=== PATIENT | female | born 1945 | race Caucasian/White ===

== ENCOUNTER 2022-01-23 17:45 | Observation (INO) | payer MEDICARE, OTHER, SELFPAY ==
[2022-01-23 17:55] VITALS: BP 169/108; PULSE 97; RESP 18; TEMP 36.6; O2SAT 96; BMI 23.0
--- NOTE | 2022-01-23 18:00 | CRLHL7_ITS ---
For Patients: As a result of the Century Cures Act, medical imaging exams and procedure reports are released immediately into your electronic medical record. You may view this report before your referring provider. If you have questions, please contact your health care provider. INDICATION: Fall, neck injury TECHNIQUE: CT Head without i.v. contrast. Coronal and sagittal reformats were obtained. COMPARISON: None FINDINGS: CSF space: Unremarkable for age. Brain: No evidence of mass, acute infarction or hemorrhage is seen. No mass-effect or midline shift is seen. Mild diffuse cortical atrophy is noted. The brain parenchyma is otherwise normal in appearance with preservation of the robbins-white matter junction. Calvarium: The visualized paranasal sinuses are well aerated. The mastoid air cells are clear. The visualized orbits are grossly unremarkable. Bone; Spina bifida occulta is noted in the posterior arch of C1. Miscellaneous: There is a nodule partially visualized in the right apex measuring 7 x 4 mm. A round nodules present in the left apex measuring 4 mm. Both thyroid lobes are heterogeneous in appearance. IMPRESSIONS: 1. No evidence of acute infarction, intracranial hemorrhage, or mass-effect seen. 2. There is a nodule partially visualized in the right apex measuring 7 x 4 mm. A round nodules present in the left apex measuring 4 mm. Further characterization with outpatient chest CT is recommended. 3. Both thyroid lobes are heterogeneous in appearance. Further assessment with outpatient thyroid ultrasound is recommended. Dictated by Carlo Borges MD @ 01/23/2022 6:54:06 PM Please note that all CT scans at this facility use dose modulation, iterative reconstruction, and/or weight-based dosing when appropriate to reduce radiation dose to as low as reasonably achievable. Dictated by: Carlo Borges MD @ 01/23/2022 18:54:13 (Electronically Signed)
--- NOTE | 2022-01-23 18:00 | CRLHL7_ITS ---
For Patients: As a result of the Century Cures Act, medical imaging exams and procedure reports are released immediately into your electronic medical record. You may view this report before your referring provider. If you have questions, please contact your health care provider. INDICATION: Fall. Laceration to back of head, Fall, head injury, loss of consciousness TECHNIQUE: CT Head without i.v. contrast. Coronal and sagittal reformats were obtained. COMPARISON: 03/26/2020 FINDINGS: CSF space: Unremarkable for age. Brain: No evidence of mass, acute infarction or hemorrhage is seen. No mass-effect or midline shift is seen. Mild diffuse cortical atrophy is noted. The brain parenchyma is otherwise normal in appearance with preservation of the robbins-white matter junction. Calvarium: The visualized paranasal sinuses are well aerated. The mastoid air cells are clear. The visualized orbits are grossly unremarkable. The calvarium is unremarkable in appearance with no fractures identified. Soft tissue hematoma is noted over the posterior vertex. IMPRESSION: 1. No evidence of acute infarction, intracranial hemorrhage, or mass-effect seen. Please note that all CT scans at this facility use dose modulation, iterative reconstruction, and/or weight-based dosing when appropriate to reduce radiation dose to as low as reasonably achievable. Dictated by: Carlo Borges MD @ 01/23/2022 18:55:30 (Electronically Signed)
--- NOTE | 2022-01-23 18:01 | ED.GENADULT ---
HPI - General Adult General Time Seen by Provider: 17:55 Date Seen: 01/23/22 Chief complaint: Head Injury/Pain Stated complaint: head injury, bleeding Time Seen by Provider: 01/23/22 17:47 Source: patient Mode of arrival: wheelchair Limitations: no limitations History of Present Illness HPI narrative: 76-year-old female who comes in today with a head injury. Apparently she fell and hit her head. Per report, loss of conscious for couple of minutes. Patient herself complains of some tailbone pain now as well as head pain. No other complaints. She does take Plavix. Related Data Home Medications Medication Instructions Recorded Confirmed atorvastatin 40 mg tablet mg 01/23/22 bupropion HCl 150 mg 24 hr tablet, mg PO 01/23/22 extended release carvedilol 3.125 mg tablet mg 01/23/22 clopidogrel 75 mg tablet mg 01/23/22 fluoxetine 10 mg capsule mg 01/23/22 nitroglycerin 0.4 mg sublingual mg 01/23/22 tablet trazodone 100 mg tablet mg 01/23/22 Review of Systems Status of ROS: Reports: 10 or more systems reviewed and unremarkable except as noted in History and below [facility] Social History Do you use any of these nicotine containing products: None Second hand tobacco smoke exposure: No How often do you have a drink containing alcohol: never How many standard drinks containing alcohol do you have on a typical day: 1 or 2 AUDIT-C Alcohol total score: 0 Non-prescribed substance use: denies use Exam Narrative: Exam Narrative: Airway- patent, no loose teeth, no blood in the oropharynx Breathing nonlabored, lungs clear bilaterally Circulation- bleeding from the scalp, no other active bleeding Neurologic- GCS 15 Const: Vital Signs, click to edit/add: Vital Signs - 24 hr 01/23/22 17:55 01/23/22 20:56 Temperature 97.8 F Pulse Rate [Left P ulse Oximeter] 97 97 Respiratory Rate 18 18 Blood Pressure [Ri ght Upper Arm] 169/108 H 121/88 Pulse Oximetry 96 Documenting provider has reviewed patient's vital signs: yes Common normals: no apparent distress, oriented x3, alert and well nourished HENMT: Common normals: normocephalic, external ears normal and external nose normal Head and scalp: normocephalic Nose: external nose normal External ear: external ears normal Other: Blood soaked towel wrapped around the head. When this was removed, the entire back of the head is matted with blood with no active bleeding noted. Eye: Common normals: PERRL and conjunctivae normal Conjunctiva: conjunctiva(e) normal Pupil: PERRL Neck & C-Spine: Common normals: full ROM, no lymphadenopathy and supple Chest: Common normals: palpation of chest normal Resp: Common normals: normal respiratory effort and clear to auscultation bilaterally Auscultation: clear to auscultation bilaterally Cardio: Common normals: regular rate, regular rhythm and no murmurs Rate: regular rate Rhythm: regular rhythm GI: Common normals: Normal to inspection, nondistended, normoactive bowel sounds present, soft to palpation and non-tender Palpation: soft : Common normals: no CVA tenderness Bladder/kidney exam: no CVA tenderness Back & Pelvis: Common normals: no CVA tenderness and thoracic and lumbar spine normal to inspection Extremity: Common normals: normal to inspection, full ROM and no pedal edema Neuro: Common normals: oriented x3, CN's II-XII intact bilaterally and no focal motor deficits Sensorium/orientation: alert Psych: Common normals: mental status grossly normal Skin: Common normals: no rashes or lesions noted General skin exam: no rashes or lesions noted Course Reevaluation(s) Reevaluation #1: Prolong care of the patient to obtain hemostasis of rapidly bleeding scalp laceration. Dr. Ambriz assisted with this. Hemoglobin 12.2 on initial check, will recheck due to large amount of bleeding, low threshold for transfusion. At this time, no active bleeding from the laceration site on the scalp. The remaining hair and scalp we cleaned to look for other lacerations. Patient will be sent for CT scan of the pelvis due to ongoing tailbone pain. Time: 19:25 Reevaluation #2: Repeat hemoglobin is 11.4 from 12.2, patient is hypertensive but otherwise remains stable. CT scan of the pelvis demonstrates fracture of the coccyx, new from November 23 and given patient's pain in this area likely acute. Time: 20:39 Reevaluation #3: Patient rechecked, she is feeling well other than her coccyx pain. She is requesting to be discharged. We discussed disposition and I recommend that she stay in the hospital due to concerns about ambulation with her coccyx fracture, pain control, and also to repeat hemoglobin given fairly significant blood last from her scalp laceration. After discussion, she is agreeable to this. Care discussed with Dr. Gutierrez, hospitalist for admission. Time: 21:50 Vital Signs Vital signs: Initial Vital Signs Temperature 97.8 F 01/23/22 17:55 Temperature Source Temporal Artery Scan 01/23/22 17:55 Pulse Rate 97 01/23/22 17:55 Pulse Rhythm 01/23/22 17:55 Respiratory Rate 18 01/23/22 17:55 Blood Pressure 169/108 H 01/23/22 17:55 Blood Pressure Mean 128 01/23/22 17:55 Blood Pressure Position Supine 01/23/22 17:55 Pulse Oximetry 96 01/23/22 17:55 Oxygen Delivery Method 01/23/22 17:55 Vital Signs Temperature 97.8 F 01/23/22 17:55 Pulse Rate 97 01/23/22 17:55 Respiratory Rate 18 01/23/22 17:55 Blood Pressure 169/108 H 01/23/22 17:55 Pulse Oximetry 96 01/23/22 17:55 Temperature 97.8 F 01/23/22 17:55 Pulse Rate 97 01/23/22 20:56 Respiratory Rate 18 01/23/22 20:56 Blood Pressure 121/88 01/23/22 20:56 Pulse Oximetry 96 01/23/22 17:55 Medical Decision Making MDM Narrative Medical decision making narrative: Patient seen and examined on arrival, trauma alert due to head injury loss of consciousness. Differential diagnosis includes but not limited to scalp laceration, skull fracture, intracranial hemorrhage, cervical fracture. Patient presents with a fall and head injury. Unable to see the source of bleeding due to large amount of matted clotted blood on the back of the head but no active bleeding noted initially. Patient sent for head CT and will complete exam on arrival back to the emergency department. Cervical spine imaging performed due to age and head injury. Medical Records Medical records reviewed: Yes I reviewed the patient's medical records Lab Data Lab results reviewed: Yes I reviewed the patient's lab results Labs: Lab Results 01/23/22 01/23/22 01/23/22 Range/Units 18:00 18:59 20:12 WBC 7.96 (4.50-11.00) K/uL RBC 4.22 (4.00-5.20) m/uL Hgb 12.2 11.4 L (12.0-16.0) gm/dL Hct 38.5 (33.0-51.0) % MCV 91 (80-100) fL MCH 29 (26-34) pg MCHC 32 (32-36) gm/dL RDW Coeff of Jeannine 12.1 (11.5-15.5) % Plt Count 485 H (140-440) K/uL Neut % (Auto) 54.7 (42.0-72.0) % Lymph % (Auto) 30.3 (20-44) % Bonner % (Auto) 9.3 (0.0-11.0) % Eos % (Auto) 5.3 (0.0-7.0) % Baso % (Auto) 0.3 (0.0-3.0) % Neut # (Auto) 4.36 (1.7-7.0) K/uL Lymph # (Auto) 2.41 (0.90-2.90) K/uL Bonner # (Auto) 0.70 (0.00-0.90) K/UL Eos # (Auto) 0.42 (0.00-0.50) K/uL Baso # (Auto) 0.02 (0.00-0.30) K/uL Abs Immat Gran (auto) 0.01 (0.00-0.30) K/uL Sodium (135-149) mmol/L Potassium (3.6-5.1) mmol/L Chloride (96-114) mmol/L Carbon Dioxide (20-32) mmol/L BUN (7-30) mg/dL Creatinine (0.5-1.5) mg/dL Estimated Creat Clear Glucose (60-115) mg/dL Calcium (8.4-10.6) mg/dL SARS-CoV-2 (PCR) (Negative) Blood Type O Positive Antibody Screen NEGATIVE 01/23/22 01/23/22 Range/Units 21:05 22:02 WBC (4.50-11.00) K/uL RBC (4.00-5.20) m/uL Hgb (12.0-16.0) gm/dL Hct (33.0-51.0) % MCV (80-100) fL MCH (26-34) pg MCHC (32-36) gm/dL RDW Coeff of Jeannine (11.5-15.5) % Plt Count (140-440) K/uL Neut % (Auto) (42.0-72.0) % Lymph % (Auto) (20-44) % Bonner % (Auto) (0.0-11.0) % Eos % (Auto) (0.0-7.0) % Baso % (Auto) (0.0-3.0) % Neut # (Auto) (1.7-7.0) K/uL Lymph # (Auto) (0.90-2.90) K/uL Bonner # (Auto) (0.00-0.90) K/UL Eos # (Auto) (0.00-0.50) K/uL Baso # (Auto) (0.00-0.30) K/uL Abs Immat Gran (auto) (0.00-0.30) K/uL Sodium 136 (135-149) mmol/L Potassium 4.9 (3.6-5.1) mmol/L Chloride 106 (96-114) mmol/L Carbon Dioxide 22 (20-32) mmol/L BUN 24 (7-30) mg/dL Creatinine 1.4 (0.5-1.5) mg/dL Estimated Creat Clear 30.76 Glucose 117 H (60-115) mg/dL Calcium 9.4 (8.4-10.6) mg/dL SARS-CoV-2 (PCR) Negative SARS-CoV-2 (Negative) Blood Type Antibody Screen Imaging Data CT scan - pelvis: Attestation: I have reviewed the pertinent imaging results. Radiologist's impression: Coccyx fracture with mild anterior displacement ECG Data Attestation: I personally reviewed and interpreted this ECG as follows: Prior ECG tracings: available for review Interpretation: Performed at 10:19 p.m. demonstrates sinus rhythm with left axis deviation, no acute ST elevations or depressions, normal intervals, QTC 454, PMR 138. No change from prior. Discharge Plan Discharge Clinical Impression: Closed fracture of coccyx, Complex laceration of scalp Procedures Additional Procedures Procedure name: Hemostasis and laceration repair Pre procedure diagnosis: Scalp laceration with active bleeding Post procedure diagnosis: Same Additional comments: Patient with aggressive arterial bleeding from the scalp. Large amount amount of blood in the hair. This was cleaned with hydrogen peroxide. Laceration was visualized with active arterial bleeding, 12 mm full-thickness laceration with brisk arterial bleeding. Lidocaine 1% with epinephrine was injected around the laceration. Two 4-0 Vicryl simple interrupted sutures were placed, along with a figure of 8 with minimal improvement of bleeding. Subsequently a 3-0 Vicryl horizontal mattress was placed with slight improvement but still active bleeding. The skin was closed with 3 4-0 Ethilon simple interrupted sutures with no further bleeding and no rapidly expanding hematoma.
[2022-01-23 18:43] LABS: Basophils Absolute Auto 0.02 K/uL (0.00-0.30); Basophils Percent Auto 0.3 % (0.0-3.0); Eosinophils Absolute Auto 0.42 K/uL (0.00-0.50); Eosinophils Percent Auto 5.3 % (0.0-7.0); Hematocrit 38.5 % (33.0-51.0); Hemoglobin* 12.2 gm/dL (12.0-16.0); Immature Granulocytes Abs Auto 0.01 K/uL (0.00-0.30); Lymphocytes Absolute Auto 2.41 K/uL (0.90-2.90); Lymphocytes Percent Auto 30.3 % (20-44); Mean Corpuscular HGB Conc 32 gm/dL (32-36); Mean Corpuscular Hemoglobin 29 pg (26-34); Mean Corpuscular Volume 91 fL (80-100); Monocytes Percent Auto 9.3 % (0.0-11.0); Neutrophils Absolute Auto 4.36 K/uL (1.7-7.0); Neutrophils Percent Auto 54.7 % (42.0-72.0); Platelet Count* 485 K/uL (140-440); RDW Coefficient of Variation % 12.1 % (11.5-15.5); Red Blood Count 4.22 m/uL (4.00-5.20); White Blood Count* 7.96 K/uL (4.50-11.00)
[2022-01-23 18:44] LABS: Slide Review Reflex No
--- NOTE | 2022-01-23 19:24 | CRLHL7_ITS ---
For Patients: As a result of the Century Cures Act, medical imaging exams and procedure reports are released immediately into your electronic medical record. You may view this report before your referring provider. If you have questions, please contact your health care provider. INDICATION: Fell ; Tailbone pain. COMPARISON: CT chest, abdomen and pelvis November 23, 2021. TECHNIQUE: CT pelvis without intravenous contrast; coronal and sagittal reformats. FINDINGS: Fracture involving the first segment of the coccyx with mild anterior displacement relatively new when compared to November 23, 2021. No pathology involving the sacrum. Disc space narrowing and disc degeneration at L5-S1. No evidence of fracture involving the hips on either side. Impression: Fracture coccyx with mild anterior displacement relatively new 0. Please note that all CT scans at this facility use dose modulation, iterative reconstruction, and/or weight-based dosing when appropriate to reduce radiation dose to as low as reasonably achievable. Dictated by Paolo Lane MD @ 01/23/2022 8:35:54 PM (Electronically Signed)
[2022-01-23 20:25] LABS: Hemoglobin* 11.4 gm/dL (12.0-16.0)
[2022-01-23 20:56] VITALS: BP 121/88; PULSE 97; RESP 18
[2022-01-23 22:21] LABS: Chloride* 106 mmol/L (96-114); Sodium* 136 mmol/L (135-149)
[2022-01-23 22:22] LABS: Potassium* 4.9 mmol/L (3.6-5.1)
[2022-01-23 22:24] LABS: Blood Urea Nitrogen* 24 mg/dL (7-30); Carbon Dioxide* 22 mmol/L (20-32); Creatinine* 1.4 mg/dL (0.5-1.5); Est. Creatinine Clearance* 30.76; Estimated Glomerular Filt Rate 38.99
[2022-01-23 22:25] LABS: Calcium* 9.4 mg/dL (8.4-10.6); Glucose* 117 mg/dL (60-115)
[2022-01-23 22:42] LABS: SARS PCR* Negative SARS-CoV-2 (Negative)
--- NOTE | 2022-01-23 22:58 | P.IMHP_ITS ---
Hospitalist- H&P: HPI History of Present Illness Time Seen by Provider: 22:30 Date Seen: 01/23/22 Chief complaint: head injury, bleeding Narrative: Brinda Harris is a 76 year old female who is presenting for fall. The patient was going to meet friends at [facility]. When she got out of the car she tripped over her feet. She hit her head on the asphalt and started bleeding. She is on plavix. she also fell on her buttock. She presented to ED and underw ent laceration repair of scalp. She was found to have coccyx fracture. She denies chest pain, sob, palpitations, fever, abdominal pain. She endorses pain in her coccyx. CT head showed No evidence of acute infarction, intracranial hemorrhage, or mass-effect seen. PFSH PFSH Social History Do you use any of these nicotine containing products: None Second hand tobacco smoke exposure: No How often do you have a drink containing alcohol: never How many standard drinks containing alcohol do you have on a typical day: 1 or 2 AUDIT-C Alcohol total score: 0 Non-prescribed substance use: denies use Meds Home Medications and Allergies Home Medications Medication Instructions Recorded Confirmed Type atorvastatin 40 mg tablet mg 01/23/22 History bupropion HCl 150 mg 24 hr tablet, mg PO 01/23/22 History extended release carvedilol 3.125 mg tablet mg 01/23/22 History clopidogrel 75 mg tablet mg 01/23/22 History fluoxetine 10 mg capsule mg 01/23/22 History nitroglycerin 0.4 mg sublingual mg 01/23/22 History tablet trazodone 100 mg tablet mg 01/23/22 History Exam Narrative: Exam Narrative: Gen: no acute distress HEENT: Laceration to posterior scalp, EOMI, mmm Neck: Supple CV: RRR normal s1 s2 Lungs: CTAB Abd: Soft, nd, nt Neuro: AOX3, CN intact nonfocal screening exam MSK: age appropriate muscle mass Skin: warm, dry; bleeding noted on scalp Const: Vital Signs, click to edit/add: Vital Signs - 24 hr 01/23/22 17:55 01/23/22 20:56 Temperature 97.8 F Pulse Rate [Left P ulse Oximeter] 97 97 Respiratory Rate 18 18 Blood Pressure [Ri ght Upper Arm] 169/108 H 121/88 Pulse Oximetry 96 Hospitalist - H&P: Result Labs Labs: Short CBC 01/23/22 01/23/22 Range/Units 18:00 20:12 WBC 7.96 (4.50-11.00) K/uL Hgb 12.2 11.4 L (12.0-16.0) gm/dL Hct 38.5 (33.0-51.0) % Plt Count 485 H (140-440) K/uL BMP 01/23/22 22:02 Sodium 136 Potassium 4.9 Chloride 106 Carbon Dioxide 22 BUN 24 Creatinine 1.4 Glucose 117 H Calcium 9.4 Assessment and Plan Assessment and plan (1) Closed fracture of coccyx: Status: Acute (2) Complex laceration of scalp: Status: Acute Plan CT HEAD No evidence of acute infarction, intracranial hemorrhage, or mass-effect seen. ct cervical spine IMPRESSIONS: 1. No evidence of acute infarction, intracranial hemorrhage, or mass-effect seen. 2. There is a nodule partially visualized in the right apex measuring 7 x 4 mm. A round nodules present in the left apex measuring 4 mm. Further characterization with outpatient chest CT is recommended. 3. Both thyroid lobes are heterogeneous in appearance. Further assessment with outpatient thyroid ultrasound is recommended. CT Pelvis Fracture coccyx with mild anterior displacement relatively new 0. _ Assessment: Brinda Harris is a 76 year old female who is presenting for fall. The patient was going to meet friends at [facility]. When she got out of the car she tripped over her feet. She hit her head on the asphalt and started bleeding. She is on plavix. she also fell on her buttock. She presented to ED and underwent laceration repair of scalp. She was found to have coccyx fracture. She denies chest pain, sob, palpitations, fever, abdominal pain. She endorses pain in her coccyx. CT head showed No evidence of acute infarction, intracranial hemorrhage, or mass-effect seen. 1. Suspected mechanical fall 2. Laceration of scalp with acute blood loss anemia 3. coccyx fracture 4. Hx of HTN 5. Hx of CAD 6. Hx of Type II Dm 7. pulmonary nodule Plan -admit to obs -pain control -orthostatics -PT evaluation -check UA -repeat CBC in AM -outpatient thyroid US and outpatient CT chest for pulmonary nodule evaluation med rec pending
[2022-01-23 23:00] VITALS: PULSE 92; RESP 16
[2022-01-23 23:10] VITALS: BP 123/69; PULSE 92; RESP 16; TEMP 37.1; O2SAT 98
[2022-01-23] MEDS: OXYCODONE 5 MG TABLET PO (23:45)
[2022-01-24 00:33] VITALS: BP 123/69; PULSE 92; RESP 16; TEMP 37.1; O2SAT 98; BMI 23.0
[2022-01-24 06:15] VITALS: BP 115/65; BP 121/73; BP 126/67; PULSE 105; PULSE 82; PULSE 93
[2022-01-24 07:00] VITALS: PULSE 91; RESP 16
[2022-01-24 07:17] LABS: Basophils Absolute Auto 0.01 K/uL (0.00-0.30); Basophils Percent Auto 0.1 % (0.0-3.0); Eosinophils Absolute Auto 0.12 K/uL (0.00-0.50); Eosinophils Percent Auto 1.2 % (0.0-7.0); Hematocrit 32.1 % (33.0-51.0); Hemoglobin* 10.1 gm/dL (12.0-16.0); Immature Granulocytes Abs Auto 0.06 K/uL (0.00-0.30); Lymphocytes Percent Auto 19.4 % (20-44); Mean Corpuscular HGB Conc 32 gm/dL (32-36); Mean Corpuscular Hemoglobin 29 pg (26-34); Mean Corpuscular Volume 91 fL (80-100); Monocytes Percent Auto 7.4 % (0.0-11.0); Neutrophils Absolute Auto 7.26 K/uL (1.7-7.0); Neutrophils Percent Auto 71.3 % (42.0-72.0); Platelet Count* 393 K/uL (140-440); RDW Coefficient of Variation % 12.1 % (11.5-15.5); Red Blood Count 3.52 m/uL (4.00-5.20); White Blood Count* 10.17 K/uL (4.50-11.00)
--- NOTE | 2022-01-24 07:24 | PC.NURSE ---
SHIFT NOTE: PT PLEASANT AND COOPERATIVE. PT C/O HEAD(3) AND COCCYX(6-7) PAIN THAT IS SLIGHTLY RESOLVED WITH PRN OXYCODONE, REPOSITIONING AND OFFLOADING WITH PILLOW. PT BECAME NAUSEATED AFTER THE ADMINISTRATION OF OXYCODONE THAT RESOLVED AFTER PT ATE SOME CRACKERS. ORTHOSTATIC BP'S CHARTED ON. PT COLOR AND OVERALL STRENGTH HAS INCREASED THROUGHOUT THE NIGHT. PT HEAD LAC SUTURED IN ED AND IS NOT ACTIVELY BLEEDING. PT HAS ONLY AMBULATED TO BEDSIDE COMMODE WITH WALKER, MIROSLAVA, A1/A2. BRUISING TO INNER RIGHT THIGH FROM PREVIOUS PROCEDURE. ABRASION THAT IS OPEN TO AIR ON LEFT ELBOW FROM FALL. FX TO COCCYX; NO BRUISING NOTED.
[2022-01-24 07:27] LABS: Slide Review Reflex No
[2022-01-24] MEDS: ACETAMINOPHEN 325 MG TABLET 650 MG PO (08:40)
[2022-01-24 09:46] VITALS: BP 103/61; BP 96/51; BP 96/63; PULSE 102; PULSE 123; PULSE 93
[2022-01-24] MEDS: 0.9 % SODIUM CHLORIDE 1000 ml 1,000 ML IV (10:06)
[2022-01-24 12:00] VITALS: BP 103/62; BP 107/74; BP 112/66; PULSE 83; PULSE 91; PULSE 95; RESP 16; TEMP 36.9; O2SAT 98
--- NOTE | 2022-01-24 14:42 | PC.NURSE ---
shift 0700 to 1530 pt sitting up in chair with breakfast upon arrival. Alert and oriented to person, place, time, and situation. PERRLA and equal arm strength. Pt ambulating with stand by assist and walker use. IV right FA patent and asymptomatic. Orthostatics assessment performed this shift, PT cleared pt to go home, and discharge pending at this time. Acetaminophen 600mg PO given for pain of the coccyx, pain score 7/10 and 2/10 for head. Declined oxycodone due to nausea side effect. Eating and eliminating sufficiently. Hair matted with dry blood and sutures on scalp intact, no drainage, no increased swelling.
--- NOTE | 2022-01-27 12:42 | PM.DS1 ---
DS: Providers Provider Time Seen by Provider: 13:00 Date Seen: 01/24/22 Date of admission: 01/23/22 23:20 Primary care physician: Kristen Pittman MD Admitting Clinician: Mike Gutierrez MD Consults: 01/23/22 23:10 Consult to Physical Therapy [CONS] Routine Comment: Reason(s) for PT Consult:: Balance Assessment Any Restrictions?:: No Restrictions 01/24/22 00:54 Consult to Occupational Therapy [CONS] Routine Comment: Reason(s) for OT Consult:: ADLs Prior to Discharge Any Restrictions?:: Unknown Consult to Occupational Therapy [CONS] Stat Comment: Reason(s) for OT Consult:: ADLs Prior to Discharge Any Restrictions?:: Unknown Consult to Physical Therapy [CONS] Routine Comment: Reason(s) for PT Consult:: Balance Assessment Any Restrictions?:: Unknown Attending Physician on discharge: Isaias Smith MD Date of Discharge: 01/24/22 DS: Diagnosis Discharge Diagnosis (1) Fall: Status: Acute (2) Closed head injury with brief loss of consciousness: Status: Acute (3) 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 Found by her . Was confused when he found her. Had a scalp laceration. Called EMS. Continue to have confusion in the emergency department. Complained of headache and right wrist pain. CT scan of the head neck and pelvis were negative for acute findings. X-ray of the right wrist was negative for fractures as well. Scalp laceration was repaired. Admitted to the hospital for observation. In hospital her condition stabilized. It was apparent that she had amnesia of the event. Thought processes prior to the event and when she started to gain awareness here in the hospital have been totally on track. The reason for her fall in her home is not established. It is unclear if she had a fall due to having tripped or some other reasons such as a seizure. Presumably the amnesia that she has of the events is either related to a post concussion amnesia verses a postictal amnesia. May need additional assessment in regard to this in the outpatient setting. Right wrist pain was persistent despite putting it in a splint. Orthopedic surgery consulted and determined that she in fact has a distal radial fracture and thus put her on appropriate splint for the same. An appropriate splint was placed on the patient's wrist and her pain was much improved thereafter. They will have follow-up with her as specified. Time Spent with Patient Time attestation: Total time spent providing and/or coordinating discharge services: Exam Narrative: Exam Narrative: No focal motor neurologic deficits. Amnesia of events surrounding her fall. Lungs clear to auscultation. Heart tones with regular rhythm. Abdomen with active bowel sounds soft nontender. Extremities without edema. Side of scalp laceration is clean and dry. Able to transfer and ambulate with assistive device, gait belt, and standby assist. Const: Documenting provider has reviewed patient's vital signs: yes Discharge Plan Discharge Disposition: Home, Self-Care Date of Admission: 01/23/22 23:20 Attending Provider on Discharge: Isaias Smith Consulting Providers: Mike Gutierrez Primary Care Provider: Kristen Pittman Condition: Improved Anticipated Discharge Date/Time: 01/24/22 16:00 Discharge Medications: New acetaminophen 325 mg Tablet 650 mg PO Q6H PRNQty: 30 0RF Continued atorvastatin 40 mg tablet 40 mg PO HS 0RF clopidogrel 75 mg tablet 75 mg PO QAM 0RF Label Comments: TAKE 1 TABLET BY MOUTH IN THE MORNING carvedilol 3.125 mg tablet 3.125 mg PO BID 0RF trazodone 100 mg tablet 100 mg PO HS 0RF Label Comments: TAKE 1 TABLET BY MOUTH AT BEDTIME fluoxetine 10 mg capsule 10 mg PO QAM 0RF Label Comments: TAKE 1 CAPSULE BY MOUTH IN THE MORNING nitroglycerin 0.4 mg tablet, sublingual 0.4 mg sublingual Q5M 0RF bupropion HCl 150 mg tablet extended release 24 hr 150 mg PO DAILY 0RF Label Comments: TAKE 1 TABLET BY MOUTH IN THE MORNING Discharge Orders: Discharge Order (Routine); Ordered 01/24/22 Ordered By: Isaias Smith Patient Education: Acetaminophen (By mouth), Coccyx Injury (GEN), Laceration (GEN), Head Injury (GEN) Activity Restrictions/Additional Instructions: 1. Home safety plan, including possibility of a Med-Alert type of system; 2. Adequate hydration and solute and food intake. Activity Level: No Restrictions, Activity as Tolerated, Use Cane and Use Walker Discharge Diet: Regular Follow Up Appointments: Kristen Pittman MD [Primary Care Provider] - 02/03/22 1:00 pm (Laceration suture removal and post-fall assessment) Forms: [employer] Info Instructions
== END 2022-01-24 15:33 | disposition home or self-care (01) ==
LOC: ED 22:32 → MEDSURG 23:21
PROVIDERS: Admitting Provider Hospitalist; Emergency Provider Family Medicine; PCP Family Medicine; Visit Provider Hospitalist
DX: S52.531A Colles' fracture of right radius, initial encounter for closed fracture (principal); S32.2XXA Fracture of coccyx, initial encounter for closed fracture; S01.01XA Laceration without foreign body of scalp, initial encounter; S06.0X9A Concussion with loss of consciousness of unspecified duration, initial encounter; W19.XXXA Unspecified fall, initial encounter; I25.10 Atherosclerotic heart disease of native coronary artery without angina pectoris; I10 Essential (primary) hypertension; E11.9 Type 2 diabetes mellitus without complications; D62 Acute posthemorrhagic anemia; M25.531 Pain in right wrist; R51.9 Headache, unspecified; R91.1 Solitary pulmonary nodule
CPT/HCPCS: 12001; 12031; 36415; 70450; 72125; 72192; 80048; 81001; 84484; 85018; 85025; 86850; 86900; 86901; 87635; 93005; 96361; 96374; 96376; 97110; 97116; 97161; 97165; 99284; 99285; A9270; G0378; G0379; G0390; J7030

== ENCOUNTER 2022-09-30 21:36 | Emergency (ER) | payer MEDICARE, OTHER, SELFPAY ==
[2022-09-30] VITALS (13 sets, daily range): BP systolic 57–134; BP diastolic 44–82; PULSE 50–84; RESP 15–18; TEMP 37.1; O2SAT 95–99
--- NOTE | 2022-09-30 22:22 | ED_ITS ---
HPI - General Adult General Time Seen by Provider: 22:22 Date Seen: 09/30/22 Chief complaint: Fall/Minor Trauma Stated complaint: Left Hip and Rib Injury after Fall Time Seen by Provider: 09/30/22 21:47 Source: patient and family Mode of arrival: ambulatory Limitations: no limitations History of Present Illness HPI narrative: 77-year-old female who comes in today with left hip and left chest pain after a fall. Patient says she got dizzy and fell. She reports frequent dizzy spells with falling over the last several months. No preceding headache or aura with these. She says the dizziness is like lightheadedness. She denies any associated chest pain, palpitations with these episodes. She fell and hit her left chest on countertop. Takes Plavix, also history of 3 stents, hypertension, diabetes. Related Data Home Medications Medication Instructions Recorded Confirmed atorvastatin 40 mg tablet 40 mg PO HS 01/23/22 01/24/22 bupropion HCl 150 mg 24 hr tablet, 150 mg PO DAILY 01/23/22 01/24/22 extended release carvedilol 3.125 mg tablet 3.125 mg PO BID 01/23/22 01/24/22 clopidogrel 75 mg tablet 75 mg PO QAM 01/23/22 01/24/22 fluoxetine 10 mg capsule 10 mg PO QAM 01/23/22 01/24/22 nitroglycerin 0.4 mg sublingual 0.4 mg sublingual Q5M 01/23/22 01/24/22 tablet trazodone 100 mg tablet 100 mg PO HS 01/23/22 01/24/22 Previous Rx's Medication Instructions Recorded acetaminophen 325 mg tablet 650 mg PO Q6H PRN #30 tabs 01/24/22 Allergies Allergy/AdvReac Type Severity Reaction Status Date / Time bumetanide Allergy Mild Nausea Verified 01/23/22 23:33 codeine Allergy Mild Nausea Verified 01/23/22 23:33 dextromethorphan Allergy Mild Nausea Verified 01/23/22 23:33 lisinopril Allergy Mild Verified 01/23/22 23:33 NSAIDS (Non-Steroidal Allergy Mild unsure Verified 01/23/22 23:33 Anti-Inflamma pentazocine Allergy Mild Unsure Verified 01/23/22 23:33 Tussinex Allergy Mild Nausea Uncoded 01/23/22 23:33 Review of Systems Status of ROS: Reports: 10 or more systems reviewed and unremarkable except as noted in History and below [facility] Medical History (Updated 10/01/22 @ 00:36 by Johny Johnson MD) CAD (coronary artery disease) DM (diabetes mellitus), type 2 Hypertension Social History Smoking Status: Never smoker Do you use any of these nicotine containing products: None Second hand tobacco smoke exposure: No How often do you have a drink containing alcohol: never How many standard drinks containing alcohol do you have on a typical day: 1 or 2 How often do you have six or more drinks on one occasion: Never AUDIT-C Alcohol total score: 0 Non-prescribed substance use: denies use Caffeine: No service: No Exam Narrative: Exam Narrative: General: Well-developed and well-nourished, no acute distress Head: Atraumatic and normocephalic Eyes: Pupils are equal reactive, extraocular motions intact, conjunctiva clear ENT: External nose and ears are normal, posterior pharynx without erythema or e xudate Neck: No midline cervical tenderness, full spontaneous range of motion the neck, trachea midline, no adenopathy Heart: Regular rate and rhythm no murmurs or thrills, left lateral chest wall te nderness Lungs: Clear to auscultation bilaterally without wheezes or crackles Abdomen: Soft, nontender, nondistended with active bowel sounds Musculoskeletal: Large hematoma of the left hip, no pain with passive movement of the hip. Neurologic: Awake, alert, and oriented x3, no gross focal neurologic deficits, cranial nerves intact as tested Psych: Mood and affect are appropriate Skin: No rashes Const: Vital Signs, click to edit/add: Vital Signs - 24 hr 09/30/22 21:50 09/30/22 22:57 09/30/22 23:05 Temperature 98.7 F Pulse Rate 84 Pulse Rate [Pulse Oximeter] 52 L 84 Respiratory Rate 18 15 Blood Pressure Blood Pressure [Ri ght Forearm] 134/82 Pulse Oximetry 98 97 96 Oxygen Delivery Me thod Room Air Room Air 09/30/22 23:10 09/30/22 23:15 09/30/22 23:18 Temperature Pulse Rate 80 50 L Pulse Rate [Pulse Oximeter] Respiratory Rate Blood Pressure 99/68 57/44 L Blood Pressure [Ri ght Forearm] Pulse Oximetry 96 95 Oxygen Delivery Me thod 09/30/22 23:20 09/30/22 23:24 09/30/22 23:40 Temperature Pulse Rate 59 L 70 69 Pulse Rate [Pulse Oximeter] Respiratory Rate Blood Pressure 78/54 L 108/67 Blood Pressure [Ri ght Forearm] Pulse Oximetry 96 95 99 Oxygen Delivery Me thod 09/30/22 23:41 09/30/22 23:45 09/30/22 23:46 Temperature Pulse Rate 71 71 69 Pulse Rate [Pulse Oximeter] Respiratory Rate Blood Pressure 95/55 L 107/53 L Blood Pressure [Ri ght Forearm] Pulse Oximetry 96 96 97 Oxygen Delivery Me thod 09/30/22 23:47 10/01/22 00:00 10/01/22 00:02 Temperature Pulse Rate 70 71 70 Pulse Rate [Pulse Oximeter] Respiratory Rate Blood Pressure 120/65 Blood Pressure [Ri ght Forearm] Pulse Oximetry 97 98 98 Oxygen Delivery Me thod Course Course Hospital Course: Patient presents today with a fall, has had multiple falls in the past secondary to getting dizzy. Independently, spouse notes the patient has some tremors were noted she has Parkinson's. On exam here, she has a large hematoma the left hip along with some tenderness of the left chest. Labs and CT scan ordered to evaluate. Head CT also ordered to evaluate history of falls recently. No chest pain or palpitations to suggest acute coronary syndrome but consider Holter monitor due to recurrent dizziness and falls. Reevaluation(s) Reevaluation #1: Labs independently interpreted by me demonstrate normal hemoglobin for the patient, BUN and creatinine are slightly elevated although only minimally increased from baseline. Time: 23:04 Reevaluation #2: Patient was requesting pain medicine, morphine 2 mg IV given. Subsequently patient developed nausea and some retching, became bradycardic to the 40s and hypotensive to 50s over 30s. Patient was awake and mentating during this time although appeared a little sleepy. IV fluids are ordered. Recheck should the hematoma the left hip which is unchanged in size from initial exam. Patient recovered without difficulty after fluids. Time: 23:16 Reevaluation #3: CT scan independently interpreted by me demonstrates a large hematoma of the left buttock and left flank extending from the lower ribs to the greater trochanter. No solid organ injury noted. Repeat hemoglobin will be ordered and plan for admission for serial hemoglobins and further monitoring. Time: 23:45 Additional Reevaluation(s): 11:55 p.m. Repeat hemoglobin into personally interpreted by me is 8.5 dropped from 10.9 in the course of an hour. Due to rapid drop in blood pressure earlier as well as rapid drop in hemoglobin, blood products ordered. Plan to transfer for due to trauma with acute blood loss anemia. 12:10 a.m. care discussed with [facility], accepts patient for transfer. 12:45 a.m. prior to transfer patient was complaining of some left-sided chest pain. EKG performed does not demonstrate any acute ischemic changes. Transport team was concerned about diminished breath sounds on the left, patient reexamined and lung sounds are present on the left. Chest x-ray performed to evaluate for hemothorax or pneumothorax given known rib fracture on that side, chest x-ray examined at bedside does not demonstrate any acute intrathoracic pathology. Patient is transported in serious but stable condition. Blood pressure actually did improve to 140s/60s prior to transfer. Vital Signs Vital signs: Initial Vital Signs Temperature 98.7 F 09/30/22 21:50 Temperature Source Temporal Artery Scan 09/30/22 21:50 Pulse Rate 52 L 09/30/22 21:50 Pulse Rhythm 09/30/22 21:50 Respiratory Rate 18 09/30/22 21:50 Blood Pressure 134/82 09/30/22 21:50 Blood Pressure Mean 99 09/30/22 21:50 Blood Pressure Position Sitting 09/30/22 21:50 Pulse Oximetry 98 09/30/22 21:50 Oxygen Delivery Method 09/30/22 21:50 Vital Signs Temperature 98.7 F 09/30/22 21:50 Pulse Rate 52 L 09/30/22 21:50 Respiratory Rate 18 09/30/22 21:50 Blood Pressure 134/82 09/30/22 21:50 Pulse Oximetry 98 09/30/22 21:50 Oxygen Delivery Method 09/30/22 21:50 Temperature 98.7 F 09/30/22 21:50 Pulse Rate 70 10/01/22 00:02 Respiratory Rate 15 09/30/22 22:57 Blood Pressure 120/65 10/01/22 00:02 Pulse Oximetry 98 10/01/22 00:02 Oxygen Delivery Method 09/30/22 22:57 Medical Decision Making Medical Records Medical records reviewed: Yes I reviewed the patient's medical records Lab Data Lab results reviewed: Yes I reviewed the patient's lab results Labs: Lab Results 09/30/22 09/30/22 09/30/22 Range/Units 22:31 22:31 22:31 WBC 10.49 (4.50-11.00) K/uL RBC 3.66 L (4.00-5.20) m/uL Hgb 10.9 L (12.0-16.0) gm/dL Hct 33.7 (33.0-51.0) % MCV 92 (80-100) fL MCH 30 (26-34) pg MCHC 32 (32-36) gm/dL RDW Coeff of Jeannine 11.8 (11.5-15.5) % Plt Count 367 (140-440) K/uL Neut % (Auto) 69.7 (42.0-72.0) % Lymph % (Auto) 17.7 L (20-44) % Logan % (Auto) 8.9 (0.0-11.0) % Eos % (Auto) 3.1 (0.0-7.0) % Baso % (Auto) 0.3 (0.0-3.0) % Neut # (Auto) 7.31 H (1.7-7.0) K/uL Lymph # (Auto) 1.90 (0.90-2.90) K/uL Logan # (Auto) 0.90 (0.00-0.90) K/UL Eos # (Auto) 0.33 (0.00-0.50) K/uL Baso # (Auto) 0.03 (0.00-0.30) K/uL INR 0.97 (0.91-1.10) Sodium 135 (135-149) mmol/L Potassium 4.8 (3.6-5.1) mmol/L Chloride 105 (96-114) mmol/L Carbon Dioxide 27 (20-32) mmol/L BUN 36 H (7-30) mg/dL Creatinine 1.6 H (0.5-1.5) mg/dL Estimated GFR 33 ml/min Glucose 171 H (60-115) mg/dL Calcium 8.9 (8.4-10.6) mg/dL SARS-CoV-2 (PCR) (Negative) Influenza Type A (PCR) (Negative) Influenza Type B (PCR) (Negative) Blood Type Antibody Screen Crossmatch (AHG) 09/30/22 09/30/22 09/30/22 Range/Units 22:31 22:45 23:50 WBC (4.50-11.00) K/uL RBC (4.00-5.20) m/uL Hgb 8.5 L (12.0-16.0) gm/dL Hct (33.0-51.0) % MCV (80-100) fL MCH (26-34) pg MCHC (32-36) gm/dL RDW Coeff of Jeannine (11.5-15.5) % Plt Count (140-440) K/uL Neut % (Auto) (42.0-72.0) % Lymph % (Auto) (20-44) % Logan % (Auto) (0.0-11.0) % Eos % (Auto) (0.0-7.0) % Baso % (Auto) (0.0-3.0) % Neut # (Auto) (1.7-7.0) K/uL Lymph # (Auto) (0.90-2.90) K/uL Logan # (Auto) (0.00-0.90) K/UL Eos # (Auto) (0.00-0.50) K/uL Baso # (Auto) (0.00-0.30) K/uL INR (0.91-1.10) Sodium (135-149) mmol/L Potassium (3.6-5.1) mmol/L Chloride (96-114) mmol/L Carbon Dioxide (20-32) mmol/L BUN (7-30) mg/dL Creatinine (0.5-1.5) mg/dL Estimated GFR ml/min Glucose (60-115) mg/dL Calcium (8.4-10.6) mg/dL SARS-CoV-2 (PCR) Negative SARS-CoV-2 (Negative) Influenza Type A (PCR) Negative PCR FLU A (Negative) Influenza Type B (PCR) Negative PCR FLU B (Negative) Blood Type O Positive Antibody Screen NEGATIVE Crossmatch (AHG) See Detail Critical Care Time Critical Care Time Critical Care Time: Yes Attestation: The patient required my highest level preparedness to intervene emergently and I personally spent this critical care time directly and personally managing the patient. This critical care time included: Obtaining a history; Examining the patient; Pulse oximetry; Ordering and reviewing of studies; Arranging urgent treatment with development of a management plan; Evaluation of patients response to treatment; Frequent reassessment discussions with other providers. This critical care time was performed to assess and manage the high probability of imminent life-threatening deterioration that could result in multiorgan failure. It was exclusive of separate billable procedures and treating other patients and teaching time. Total Critical Care Time in Minutes: 110 Discharge Plan Discharge Clinical Impression: Hematoma of left hip, Dizziness, Frequent falls, Vasovagal reaction, Acute blood loss anemia Patient Disposition: Xfer [place] Discharge Location: [facility] Prescriptions: No Action atorvastatin 40 mg tablet 40 mg PO HS clopidogrel 75 mg tablet 75 mg PO QAM Label Comments: TAKE 1 TABLET BY MOUTH IN THE MORNING carvedilol 3.125 mg tablet 3.125 mg PO BID trazodone 100 mg tablet 100 mg PO HS Label Comments: TAKE 1 TABLET BY MOUTH AT BEDTIME fluoxetine 10 mg capsule 10 mg PO QAM Label Comments: TAKE 1 CAPSULE BY MOUTH IN THE MORNING nitroglycerin 0.4 mg tablet, sublingual 0.4 mg sublingual Q5M bupropion HCl 150 mg tablet extended release 24 hr 150 mg PO DAILY Label Comments: TAKE 1 TABLET BY MOUTH IN THE MORNING acetaminophen 325 mg Tablet 650 mg PO Q6H PRNQty: 30 0RF Stand Alone [facility]: [facility] Inst[facility]
--- NOTE | 2022-09-30 22:24 | CRLHL7_ITS ---
For Patients: As a result of the Cures Act, medical imaging exams and procedure reports are released immediately into your electronic medical record. You may view this report before your referring provider. If you have questions, please contact your health care provider. INDICATION: Dizziness, fall. COMPARISON: CT head 01/23/2022. TECHNIQUE: CT of the head without IV contrast. Coronal and sagittal reconstructions. FINDINGS: No intracranial hemorrhage, mass effect, or evidence of acute infarct. No midline shift. No abnormal extra-axial fluid collections. Mild generalized cerebral and cerebellar volume loss with associated ex vacuo dilation of the lateral ventricles. Moderate chronic small vessel ischemic disease. Physiologic basal ganglia calcification. Intracranial vascular calcification. Orbits and extraocular muscles are symmetric. The visualized paranasal sinuses and mastoid air cells are clear. No acute fracture identified. Soft tissues are unremarkable. IMPRESSION: 1. No acute intracranial findings. 2. Mild generalized cerebral volume loss and moderate chronic small vessel ischemic disease. Please note that all CT scans at this facility use dose modulation, iterative reconstruction, and/or weight-based dosing when appropriate to reduce radiation dose to as low as reasonably achievable. Dictated by Amanda Bass MD @ 10/01/2022 12:29:40 AM (Electronically Signed)
--- NOTE | 2022-09-30 22:25 | CRLHL7_ITS ---
For Patients: As a result of the 21st Century Cures Act, medical imaging exams and procedure reports are released immediately into your electronic medical record. You may view this report before your referring provider. If you have questions, please contact your health care provider. Indication: fall, left chest wall pain, large left hip/thigh hematoma Technique: Postcontrast CT chest, abdomen and pelvis. 76 cc Visipaque 320 intravenous contrast. Please note that all CT scans at this facility use dose modulation, iterative reconstruction, and/or weight-based dosing when appropriate to reduce radiation dose to as low as reasonably achievable. Comparison: None Findings: In the chest, there are multiple bilateral pulmonary nodules. The largest nodule has an ill-defined/spiculated margin and is located in the left upper lobe, 4/24, measuring 6.4 millimeters. There is no pneumothorax. There is no pleural effusion. Atelectasis within the left lower lobe. There is a mildly displaced fracture of the left posterior 9th rib. The scapula is intact. There is mild compression of the T12 vertebral body with posterior canal narrowing. Heterogeneous thyroid gland with small nodule on the right. No traumatic aortic injury. Atherosclerotic disease. No enlarged lymph nodes. Breast tissue appears normal. In the abdomen/pelvis, there is a large left lateral subcutaneous hematoma measuring 11.8 cm with curvilinear areas of density related to blood vessels and possible active extravasation. Surrounding edema/bruising within the adjacent fat. The underlying musculature is intact. Degenerative changes are present at both hips. There is no pelvic fracture. No bladder rupture. Colonic diverticulosis. No bowel obstruction or free intraperitoneal air. Increased stool throughout the redundant colon. Appendix normal. No adenopathy. No intrahepatic or intra splenic contusion. Thickening of the left adrenal gland. Simple exophytic cyst arises from the lateral left kidney measuring 1 cm. No solid renal mass. Right kidney absent. [place] effect of the biliary tree status post cholecystectomy. No pancreatic lesion. Atherosclerotic disease. Impression: Large left flank subcutaneous hematoma with active extravasation. Patient was transferred to [facility]. Fractures of the left posterior 9th rib and at the T12 vertebral body. Bilateral indeterminate pulmonary nodules. Please note that all CT scans at this facility use dose modulation, iterative reconstruction, and/or weight-based dosing when appropriate to reduce radiation dose to as low as reasonably achievable. Dictated by Nic Lomeli MD @ 10/05/2022 10:20:03 AM (Electronically Signed)
[2022-09-30 22:42] LABS: Basophils Absolute Auto 0.03 K/uL (0.00-0.30); Basophils Percent Auto 0.3 % (0.0-3.0); Eosinophils Absolute Auto 0.33 K/uL (0.00-0.50); Eosinophils Percent Auto 3.1 % (0.0-7.0); Hematocrit 33.7 % (33.0-51.0); Hemoglobin* 10.9 gm/dL (12.0-16.0); Immature Granulocytes Abs Auto 0.03 K/uL (0.00-0.30); Immature Granulocytes Pct Auto 0.3 %; Lymphocytes Percent Auto 17.7 % (20-44); Mean Corpuscular HGB Conc 32 gm/dL (32-36); Mean Corpuscular Hemoglobin 30 pg (26-34); Mean Corpuscular Volume 92 fL (80-100); Monocytes Percent Auto 8.9 % (0.0-11.0); Neutrophils Absolute Auto 7.31 K/uL (1.7-7.0); Neutrophils Percent Auto 69.7 % (42.0-72.0); Platelet Count* 367 K/uL (140-440); RDW Coefficient of Variation % 11.8 % (11.5-15.5); Red Blood Count 3.66 m/uL (4.00-5.20); White Blood Count* 10.49 K/uL (4.50-11.00)
[2022-09-30 22:53] LABS: INR 0.97 (0.91-1.10); Prothrombin Time 13.5 Seconds
[2022-09-30 22:57] LABS: Slide Review Reflex No
[2022-09-30 22:58] LABS: Chloride* 105 mmol/L (96-114)
[2022-09-30 22:59] LABS: Potassium* 4.8 mmol/L (3.6-5.1); Sodium* 135 mmol/L (135-149)
--- NOTE | 2022-09-30 23:00 | ED.NURSE ---
Patient was heard moaning in room. Went in to check on her, she was unable to answer questions. She appeared pale and nauseous. Heart rate formally noted in 80's dropped to 40's. MD was called to room, zofran and fluids administered and patient began to have return of color and alertness. Will continue to monitor.
[2022-09-30 23:01] LABS: Creatinine* 1.6 mg/dL (0.5-1.5); Estimated Glomerular Filt Rate 33 ml/min
[2022-09-30 23:02] LABS: Blood Urea Nitrogen* 36 mg/dL (7-30); Calcium* 8.9 mg/dL (8.4-10.6); Carbon Dioxide* 27 mmol/L (20-32); Glucose* 171 mg/dL (60-115)
[2022-09-30] MEDS: MORPHINE 2 MG/ML inj IVP (23:09)
[2022-09-30 23:30] LABS: PCR FLU A Negative PCR FLU A (Negative); PCR FLU B Negative PCR FLU B (Negative)
[2022-09-30] MEDS: 0.9 % SODIUM CHLORIDE 500 ML 500 ML IV (23:31)
[2022-09-30] MEDS: ONDANSETRON 2 MG/ML inj 4 MG IVP (23:31)
[2022-09-30 23:33] LABS: SARS PCR* Negative SARS-CoV-2 (Negative)
[2022-09-30 23:59] LABS: Hemoglobin* 8.5 gm/dL (12.0-16.0)
[2022-10-01] VITALS: PULSE 71; O2SAT 98
[2022-10-01 00:02] VITALS: BP 120/65; PULSE 70; O2SAT 98
--- NOTE | 2022-10-01 00:15 | ED.NURSE ---
Patient complaining of severe chest pain. Provider made aware and EKG completed. Made call to regarding change in status but line does not go through. Also made call to daughter in record and left message.
[2022-10-01] MEDS: TRANEXAMIC ACID 100 MG/ML INJ 1000 MG IV (00:35)
--- NOTE | 2022-10-01 00:44 | CRLHL7_ITS ---
For Patients: As a result of the Cures Act, medical imaging exams and procedure reports are released immediately into your electronic medical record. You may view this report before your referring provider. If you have questions, please contact your health care provider. INDICATION: CHEST PAIN TECHNIQUE: Chest 1 view COMPARISON: 11/25/2021 FINDINGS: Tortuosity of the aorta. The cardiac silhouette is upper limits of normal. Mild areas of scarring. No infiltrate or edema. No effusion or pneumothorax. Degenerative changes. Postop changes upper abdomen. IMPRESSION: No acute findings. Dictated by Nic Lomeli MD @ 10/02/2022 10:30:59 AM (Electronically Signed)
--- NOTE | 2022-10-01 00:46 | ED.NURSE ---
Blood hung in ED to be infused [place] [facility] Patient still complaining of chest pain and increased difficulty breathing. Portable x-ray ordered prior to transport by EMS. Additional dose of Zofran also administered for nausea.
[2022-10-01] MEDS: ONDANSETRON 2 MG/ML inj 4 MG IVP (01:04)
--- NOTE | 2022-10-01 01:25 | ED.NURSE ---
Called and left updated voice mail for . Attempted to call reports to [facility] but sandfill operator states no report is needed for ED tranfer.
== END 2022-10-01 00:10 | disposition short-term general hospital (02) ==
PROVIDERS: Emergency Provider Family Medicine; PCP Family Medicine
DX: S70.02XA Contusion of left hip, initial encounter (principal); R42 Dizziness and giddiness; D62 Acute posthemorrhagic anemia; R07.89 Other chest pain
CPT/HCPCS: 36415; 36430; 70450; 71045; 71260; 74177; 80048; 85018; 85025; 85610; 86850; 86900; 86901; 86922; 87631; 93005; 96374; 96375; 96376; 99285; 99291; 99292; J2270; J2405; J7120; P9016; Q9967

== ENCOUNTER 2022-10-01 00:28 | Outpatient (CLI) | payer MEDICARE, OTHER, SELFPAY | END 2022-10-01 00:29 | disposition home or self-care (01) | LOC: AMB 10-02 12:34 | PROVIDERS: PCP Family Medicine; Visit Provider Family Medicine | DX: S29.9XXS Unspecified injury of thorax, sequela (principal); S79.912S Unspecified injury of left hip, sequela | CPT/HCPCS: A0425; A0434 ==

== ENCOUNTER 2022-10-10 13:44 | Outpatient (RCR) | payer SELFPAY | END 2023-09-18 08:39 | disposition home or self-care (01) | LOC: MOW 13:44 | PROVIDERS: PCP Family Medicine; Visit Provider Family Medicine | DX: Z76.0 Encounter for issue of repeat prescription (principal) | CPT/HCPCS: S5170 ==

== ENCOUNTER 2022-11-18 10:45 | Outpatient (CLI) | payer MEDICARE, OTHER, SELFPAY ==
--- NOTE | 2022-11-18 11:00 | CRLHL7_ITS ---
For Patients: As a result of the Century Cures Act, medical imaging exams and procedure reports are released immediately into your electronic medical record. You may view this report before your referring provider. If you have questions, please contact your health care provider. Indication: Multiple pulmonary nodules Technique: Noncontrast CT chest Please note that all CT scans at this facility use dose modulation, iterative reconstruction, and/or weight-based dosing when appropriate to reduce radiation dose to as low as reasonably achievable. Comparison: 09/30/2022, 11/23/2021 Findings: Atherosclerotic disease noted within the aorta and coronary arteries. Metallic artifact in the upper abdomen on the right is unchanged. Similar appearance of the thyroid with heterogeneity. Normal appearance of the breast tissue. No enlarged intrathoracic lymph nodes. Mild compression deformity at the thoracolumbar junction again noted. Displaced left posterior rib fracture again noted. No significant interval change in multiple bilateral pulmonary nodules including a 7 millimeter spiculated nodule in the left upper lobe. This is similar to the 11/23/2021 exam. Impression: Stable bilateral pulmonary nodules measuring up to 7 millimeters. One year follow-up recommended. Please note that all CT scans at this facility use dose modulation, iterative reconstruction, and/or weight-based dosing when appropriate to reduce radiation dose to as low as reasonably achievable. Dictated by Nic Lomeli MD @ 11/18/2022 1:17:53 PM (Electronically Signed)
== END 2022-11-18 10:46 | disposition home or self-care (01) ==
LOC: CT 10:47
PROVIDERS: Visit Provider Orthopaedic Surgery Adult Reconstructive Orthopaedic Surgery
DX: R91.8 Other nonspecific abnormal finding of lung field (principal)
CPT/HCPCS: 71250

== ENCOUNTER 2023-05-05 12:19 | Outpatient (CLI) | payer MEDICARE, SELFPAY | END 2023-05-05 12:20 | disposition home or self-care (01) | LOC: AMB 05-09 14:54 | PROVIDERS: PCP Family Medicine; Visit Provider Emergency Medicine | DX: R11.2 Nausea with vomiting, unspecified (principal) | CPT/HCPCS: A0425; A0427 ==

== ENCOUNTER 2023-05-05 12:40 | Emergency (ER) | payer MEDICARE, SELFPAY ==
[2023-05-05] VITALS (13 sets, daily range): BP systolic 125–162; BP diastolic 77–107; PULSE 63–74; RESP 18; TEMP 36.6; O2SAT 91–99; BMI 22.6
[2023-05-05 13:20] LABS: Appearance Urine Clear (Clear); Bilirubin Urine Negative (Negative); Blood Urine Negative (Negative); Color Urine Yellow (Yellow); Glucose Urine Negative (Negative); Ketones Urine Negative (Negative); Leukocyte Esterase Urine Negative (Negative); Nitrite Urine Negative (Negative); Protein Urine 3+ (Negative); Specific Gravity Urine 1.025 (1.000-1.030); Urobilinogen Urine 0.2 (0.2-1.0); pH Urine 6.5 (5.0-8.5)
[2023-05-05 13:32] LABS: Amorphous Sediment Urine Moderate; RBC Urine 0-2 (0-2); WBC Urine 0-2 (0-5)
[2023-05-05 13:43] LABS: Basophils Absolute Auto 0.02 K/uL (0.00-0.30); Basophils Percent Auto 0.3 % (0.0-3.0); Eosinophils Absolute Auto 0.17 K/uL (0.00-0.50); Eosinophils Percent Auto 2.2 % (0.0-7.0); Hematocrit 43.8 % (33.0-51.0); Hemoglobin* 14.2 gm/dL (12.0-16.0); Immature Granulocytes Abs Auto 0.01 K/uL (0.00-0.30); Immature Granulocytes Pct Auto 0.1 %; Lactate Sepsis w/Reflex* 0.8 mmol/L (0.5-1.9); Lymphocytes Absolute Auto 1.54 K/uL (0.90-2.90); Lymphocytes Percent Auto 20.3 % (20-44); Mean Corpuscular HGB Conc 32 gm/dL (32-36); Mean Corpuscular Hemoglobin 29 pg (26-34); Mean Corpuscular Volume 90 fL (80-100); Monocytes Percent Auto 6.6 % (0.0-11.0); Neutrophils Absolute Auto 5.34 K/uL (1.7-7.0); Neutrophils Percent Auto 70.5 % (42.0-72.0); Platelet Count* 378 K/uL (140-440); RDW Coefficient of Variation % 12.3 % (11.5-15.5); Red Blood Count 4.86 m/uL (4.00-5.20); White Blood Count* 7.58 K/uL (4.50-11.00)
[2023-05-05 13:45] LABS: Slide Review Reflex No
[2023-05-05] MEDS: 0.9 % SODIUM CHLORIDE 1000 ml 1,000 ML IV (13:48)
[2023-05-05] MEDS: ONDANSETRON 2 MG/ML inj 4 MG IVP (13:48)
--- NOTE | 2023-05-05 13:51 | ED_ITS ---
HPI - General Adult General Date Seen: 05/05/23 Chief complaint: Nausea/Vomiting Stated complaint: Nausea Time Seen by Provider: 05/05/23 12:46 Source: patient and EMS Mode of arrival: EMS Limitations: other History of Present Illness HPI narrative: Patient is a 78-year-old woman who presents saying that she has felt nauseated for the past several days. Her apparently called 911 from the [facility] and she is brought in by EMS. It is little unclear what that conversation entailed as he has not here and the patient does not remember, she reportedly has some underlying dementia. She says she has felt generally weak, she has not had any vomiting, has not had fevers, chest pain, difficulty breathing, denies constipation, diarrhea, black or bloody stools, urinary symptoms or focal weakness. She does not have pain anywhere. She is uncertain whether is coming in or not. Lives at home with her , does not smoke or drink. History of heart disease and diabetes, blood sugar was reportedly normal. Related Data Home Medications Medication Instructions Recorded Confirmed atorvastatin 40 mg tablet 40 mg PO 01/23/22 01/24/22 bupropion HCl 150 mg 24 hr tablet, 150 mg PO DAILY 01/23/22 01/24/22 extended release carvedilol 3.125 mg tablet 3.125 mg PO BID 01/23/22 01/24/22 clopidogrel 75 mg tablet 75 mg PO [facility] 01/23/22 01/24/22 fluoxetine 10 mg capsule 10 mg PO [facility] 01/23/22 01/24/22 nitroglycerin 0.4 mg sublingual 0.4 mg sublingual Q5M 01/23/22 01/24/22 tablet trazodone 100 mg tablet 100 mg PO 01/23/22 01/24/22 Previous Rx's Medication Instructions Recorded acetaminophen 325 mg tablet 650 mg (2 x 325 mg) PO Q6H PRN #30 01/24/22 tabs Allergies Allergy/AdvReac Type Severity Reaction Status Date / Time bumetanide Allergy Mild Nausea Verified 10/01/22 06:46 codeine Allergy Mild Nausea Verified 10/01/22 06:46 dextromethorphan Allergy Mild Nausea Verified 10/01/22 06:46 lisinopril Allergy Mild Verified 10/01/22 06:46 NSAIDS (Non-Steroidal Allergy Mild unsure Verified 10/01/22 06:46 Anti-Inflamma pentazocine Allergy Mild Unsure Verified 10/01/22 06:46 Tussinex Allergy Mild Nausea Uncoded 10/01/22 06:46 Review of Systems Status of ROS: Reports: 10 or more systems reviewed and unremarkable except as noted in History and below [facility] Medical History Hypertension ?I10 - Essential (primary) hypertension (ICD-10) DM (diabetes mellitus), type 2 ?E11.9 - Type 2 diabetes mellitus without complications (ICD-10) CAD (coronary artery disease) ?I25.10 - Atherosclerotic heart disease of [place] coronary artery without angina pectoris (ICD-10) Social History Smoking Status: Never smoker Do you use any of these nicotine containing products: None Second hand tobacco smoke exposure: No How often do you have a drink containing alcohol: 2-4 times a month How many standard drinks containing alcohol do you have on a typical day: 1 or 2 How often do you have six or more drinks on one occasion: Never AUDIT-C Alcohol total score: 2 Non-prescribed substance use: denies use Caffeine: No service: No Exam Narrative: Exam Narrative: Vital signs as noted above. In general, an alert, nontoxic elderly woman. She looks slightly fatigued, breathing easily. Head: Normocephalic, atraumatic. Eyes: Pupils are equal reactive. Extraocular movements are full. Conjunctivae are normal. ENT: Mucous membranes are moist. Neck: Supple without lymphadenopathy. Heart: Regular rate and rhythm. No murmur or rub. Lungs: Clear bilaterally. No increased work of breathing, crackles or wheezes. Abdomen: Soft and nontender. No organomegaly. Extremities: Well perfused. No edema. No calf tenderness. Pulses intact. Neurologic: Patient is alert and oriented to person and place. Speech is fluent. Face is symmetric. Moves all extremities equally. Affect: Normal. Skin: Warm and dry. Well perfused. Const: Vital Signs, click to edit/add: Vital Signs - 24 hr 05/05/23 12:48 05/05/23 13:20 05/05/23 13:30 Temperature 97.8 F Pulse Rate 65 63 Pulse Rate [Right Pulse Oximeter] 64 Respiratory Rate 18 Blood Pressure Blood Pressure [Ri ght Upper Arm] 162/107 H Pulse Oximetry 99 99 98 Oxygen Delivery Me thod Room Air 05/05/23 13:31 05/05/23 13:32 05/05/23 14:00 Temperature Pulse Rate 64 65 68 Pulse Rate [Right Pulse Oximeter] Respiratory Rate Blood Pressure 159/95 H Blood Pressure [Ri ght Upper Arm] Pulse Oximetry 98 98 95 Oxygen Delivery Me thod 05/05/23 14:02 05/05/23 14:03 05/05/23 14:30 Temperature Pulse Rate 65 67 71 Pulse Rate [Right Pulse Oximeter] Respiratory Rate Blood Pressure 148/77 H Blood Pressure [Ri ght Upper Arm] Pulse Oximetry 95 96 95 Oxygen Delivery Me thod 05/05/23 14:31 Temperature Pulse Rate 72 Pulse Rate [Right Pulse Oximeter] Respiratory Rate Blood Pressure 147/81 H Blood Pressure [Ri ght Upper Arm] Pulse Oximetry 92 Oxygen Delivery Me thod Documenting provider has reviewed patient's vital signs: yes Course Course ED Course: Following initial evaluation patient had an EKG which by my review shows a normal sinus rhythm, ventricular rate of 64 beats per minute. No acute ST segment changes, T-waves are unremarkable. IV ordered, will give some fluids and Zofran, labs pending aside from a UA which shows 3+ protein but no ketones, no red cells or white cells. Point of care troponin was 0. Has been did ultimately come to the emergency department. Apparently he called 911 at the request of his daughter who was concerned about ongoing nausea. He denies that there was anything else acute going on. Patient feels mildly better after Zofran, is tolerant of fluids orally without vomiting. CBC shows a normal white blood cell count, normal hemoglobin, normal diff. Metabolic panel is with in normal limits with the exception of a creatinine of 1.7, it was 1.6 at last check a few months ago. 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 Lactate is normal at 0.8, LFTs are unremarkable. CRP is less than 0.5. TSH is normal, UA shows protein but no ketones normal spec. grav. and no evidence of infection. Discussed with the patient and her I do not find a clear cause for her nausea. She has no abdominal pain nor tenderness, she has normal labs and I think overall CT scan i s unlikely to be beneficial today. I did encourage her to follow up with her primary care doctor in the coming week to reassess and if she still symptomatic further evaluation may be indicated. In the meantime, we will send her home with some Nigel, return to the ER for acute worsening such as significant abdominal pain, fever, vomiting or other new symptoms. Vital Signs Vital signs: Initial Vital Signs Temperature 97.8 F 05/05/23 12:48 Temperature Source Temporal Artery Scan 05/05/23 12:48 Pulse Rate 64 05/05/23 12:48 Respiratory Rate 18 05/05/23 12:48 Blood Pressure 162/107 H 05/05/23 12:48 Blood Pressure Mean 125 H 05/05/23 12:48 Blood Pressure Position Sitting 05/05/23 12:48 Pulse Oximetry 99 05/05/23 12:48 Oxygen Delivery Method Room Air 05/05/23 12:48 Vital Signs Temperature 97.8 F 05/05/23 12:48 Pulse Rate 64 05/05/23 12:48 Respiratory Rate 18 05/05/23 12:48 Blood Pressure 162/107 H 05/05/23 12:48 Pulse Oximetry 99 05/05/23 12:48 Oxygen Delivery Method Room Air 05/05/23 12:48 Temperature 97.8 F 05/05/23 12:48 Pulse Rate 72 05/05/23 14:31 Respiratory Rate 18 05/05/23 12:48 Blood Pressure 147/81 H 05/05/23 14:31 Pulse Oximetry 92 05/05/23 14:31 Oxygen Delivery Method Room Air 05/05/23 12:48 Medical Decision Making Lab Data Labs: Lab Results 05/05/23 05/05/23 Range/Units 13:16 13:35 WBC 7.58 (4.50-11.00) K/uL RBC 4.86 (4.00-5.20) m/uL Hgb 14.2 (12.0-16.0) gm/dL Hct 43.8 (33.0-51.0) % MCV 90 (80-100) fL MCH 29 (26-34) pg MCHC 32 (32-36) gm/dL RDW Coeff of Jeannine 12.3 (11.5-15.5) % Plt Count 378 (140-440) K/uL Neut % (Auto) 70.5 (42.0-72.0) % Lymph % (Auto) 20.3 (20-44) % [place] % (Auto) 6.6 (0.0-11.0) % Eos % (Auto) 2.2 (0.0-7.0) % Baso % (Auto) 0.3 (0.0-3.0) % Neut # (Auto) 5.34 (1.7-7.0) K/uL Lymph # (Auto) 1.54 (0.90-2.90) K/uL [place] # (Auto) 0.50 (0.00-0.90) K/UL Eos # (Auto) 0.17 (0.00-0.50) K/uL Baso # (Auto) 0.02 (0.00-0.30) K/uL Abs Immat Gran (auto) 0.01 (0.00-0.30) K/uL Imm/Tot Granulo (auto) 0.1 % Sodium 137 (135-149) mmol/L Potassium 4.6 (3.6-5.1) mmol/L Chloride 103 (96-114) mmol/L Carbon Dioxide 26 (20-32) mmol/L Anion Gap 8 (7-15) mEq/L BUN 30 (7-30) mg/dL Creatinine 1.7 H (0.5-1.5) mg/dL Estimated Creat Clear 25.53 Estimated GFR 31 ml/min Glucose 110 (60-115) mg/dL Lactate 0.8 (0.5-1.9) mmol/L Calcium 9.4 (8.4-10.6) mg/dL Total Bilirubin 0.9 (0.1-1.5) mg/dL Direct Bilirubin 0.0 (0.0-0.5) mg/dL AST 34 (12-35) U/L ALT 23 (4-35) U/L Alkaline Phosphatase 77 (40-150) U/L C-Reactive Protein < 0.5 L (0.5-1.0) mg/dL Total Protein 7.2 (6.0-8.3) g/dL Albumin 4.1 (3.3-5.0) g/dL TSH 1.600 (0.270-4.200) uIU/mL Urine Color Yellow (Yellow) Urine Appearance Clear (Clear) Urine pH 6.5 (5.0-8.5) Ur Specific [place] 1.025 (1.000-1.030) Urine Protein 3+ A (Negative) Urine Glucose (UA) Negative (Negative) Urine Ketones Negative (Negative) Urine Blood Negative (Negative) Urine Nitrite Negative (Negative) Urine Bilirubin Negative (Negative) Urine Urobilinogen 0.2 (0.2-1.0) Ur Leukocyte Esterase Negative (Negative) Urine RBC 0-2 (0-2) Urine WBC 0-2 (0-5) Ur Squamous Epith Cells None (None-Few) Amorphous Sediment Moderate A (None) Urine Bacteria None (None) SARS-CoV-2 (PCR) Negative SARS-CoV-2 (Negative) Influenza Type A (PCR) Negative PCR FLU A (Negative) Influenza Type B (PCR) Negative PCR FLU B (Negative) RSV (PCR) Negative PCR RSV (Negative) POC Troponin I 0.00 L (0.01-0.04) ng/ml Discharge Plan Discharge Clinical Impression: Mild renal insufficiency, Single kidney, Nausea Patient Disposition: Home, Self-Care Condition: Improved Instructions: Acute Nausea and Vomiting (DC) Additional Instructions: Zofran if needed for nausea. If you have worsening symptoms, develops significant vomiting, abdominal pain, fever, or other acute changes return to the emergency department. Otherwise I would recommend follow-up at your clinic in the next week or so for re-evaluation and further testing is indicated. Your creatinine today is 1.7. Prescriptions: No Action atorvastatin 40 mg tablet 40 mg PO HS clopidogrel 75 mg tablet 75 mg PO QAM Patient Comments: TAKE 1 TABLET BY MOUTH IN THE MORNING carvedilol 3.125 mg tablet 3.125 mg PO BID trazodone 100 mg tablet 100 mg PO HS Patient Comments: TAKE 1 TABLET BY MOUTH AT BEDTIME fluoxetine 10 mg capsule 10 mg PO QAM Patient Comments: TAKE 1 CAPSULE BY MOUTH IN THE MORNING nitroglycerin 0.4 mg tablet, sublingual 0.4 mg sublingual Q5M bupropion HCl 150 mg tablet extended release 24 hr 150 mg PO DAILY Patient Comments: TAKE 1 TABLET BY MOUTH IN THE MORNING acetaminophen 325 mg Tablet 650 mg PO Q6H PRNQty: 30 0RF Follow Up/Referrals: Urmila Ivory MD [Primary Care Provider] - Stand Alone Forms: [email or web address] Info Instructions
[2023-05-05 14:00] LABS: Chloride* 103 mmol/L (96-114); Potassium* 4.6 mmol/L (3.6-5.1); Sodium* 137 mmol/L (135-149)
[2023-05-05 14:01] LABS: Albumin* 4.1 g/dL (3.3-5.0)
[2023-05-05 14:03] LABS: Anion Gap 8 mEq/L (7-15); Carbon Dioxide* 26 mmol/L (20-32); Creatinine* 1.7 mg/dL (0.5-1.5); Est. Creatinine Clearance* 25.53; Estimated Glomerular Filt Rate 31 ml/min
[2023-05-05 14:04] LABS: Blood Urea Nitrogen* 30 mg/dL (7-30); Calcium* 9.4 mg/dL (8.4-10.6); Glucose* 110 mg/dL (60-115)
[2023-05-05 14:05] LABS: Alanine Aminotransferase* 23 U/L (4-35); Alkaline Phosphatase* 77 U/L (40-150); Aspartate Amino Transferase* 34 U/L (12-35); Bilirubin Total* 0.9 mg/dL (0.1-1.5); Total Protein* 7.2 g/dL (6.0-8.3)
[2023-05-05 14:08] LABS: C Reactive Protein* < 0.5 mg/dL (0.5-1.0)
[2023-05-05 14:20] LABS: PCR FLU A Negative PCR FLU A (Negative); PCR FLU B Negative PCR FLU B (Negative); PCR RSV Negative PCR RSV (Negative)
[2023-05-05 14:29] LABS: SARS PCR* Negative SARS-CoV-2 (Negative)
== END 2023-05-05 15:26 | disposition home or self-care (01) ==
PROVIDERS: Emergency Provider Emergency Medicine; PCP Family Medicine
DX: R11.0 Nausea (principal); N18.9 Chronic kidney disease, unspecified
CPT/HCPCS: 36415; 80048; 80076; 81001; 83605; 84443; 84484; 85025; 86140; 87631; 93005; 96374; 99284; J2405; J7030

== ENCOUNTER 2024-04-24 18:56 | Outpatient (CLI) | payer MEDICARE, SELFPAY | END 2024-04-24 18:57 | disposition home or self-care (01) | LOC: AMB 04-28 04:23 | PROVIDERS: PCP Family Medicine; Visit Provider Student in an Organized Health Care Education/Training Program | DX: R51.9 Headache, unspecified (principal); S09.90XA Unspecified injury of head, initial encounter; W01.0XXA Fall on same level from slipping, tripping and stumbling without subsequent striking against object, initial encounter; Y92.031 Bathroom in apartment as the place of occurrence of the external cause | CPT/HCPCS: A0425; A0429 ==

== ENCOUNTER 2024-04-24 19:30 | Inpatient (IN) | payer MEDICARE, SELFPAY ==
[2024-04-24] VITALS (21 sets, daily range): BP systolic 152–188; BP diastolic 93–107; PULSE 69–91; RESP 16–20; TEMP 36.1–37.3; O2SAT 93–98; BMI 24.2; BMI 24.5
--- NOTE | 2024-04-24 19:45 | CRLHL7_ITS ---
For Patients: As a result of the Century Cures Act, medical imaging exams and procedure reports are released immediately into your electronic medical record. You may view this report before your referring provider. If you have questions, please contact your health care provider. Indication: Fall, blunt trauma, headache Technique: Volumetric multidetector CT images of the head were obtained without the administration of low osmolar intravenous contrast. Comparison: CT head September 30, 2022 Findings: There is no intra-axial or extra-axial fluid collection. There is no mass effect or midline shift. There is age-related cortical atrophy with mild sulcal widening and ex vacuo dilatation of the lateral ventricles. There are chronic small vessel disease changes in the subcortical and periventricular white matter without lost robbins-white differentiation. The orbits and their contents are grossly within normal limits. There is a small posterior vertex scalp hematoma. The bony calvarium is otherwise grossly intact. The paranasal sinuses are clear. The mastoid air cells are well aerated. Impression: Small posterior vertex scalp hematoma. Otherwise, stable age-related and chronic small-vessel disease changes of the brain without acute intracranial abnormality. Please note that all CT scans at this facility use dose modulation, iterative reconstruction, and/or weight-based dosing when appropriate to reduce radiation dose to as low as reasonably achievable. Dictated by Edil Bledsoe MD @ 04/24/2024 8:35:27 PM (Electronically Signed)
--- NOTE | 2024-04-24 19:45 | CRLHL7_ITS ---
For Patients: As a result of the Century Cures Act, medical imaging exams and procedure reports are released immediately into your electronic medical record. You may view this report before your referring provider. If you have questions, please contact your health care provider. INDICATION: Trauma. TECHNIQUE: CT cervical spine without contrast. COMPARISON: CT cervical spine 01/23/2022.. CT chest 02/25/2024. FINDINGS: No acute fracture or suspicious osseous lesion. The cervical vertebral bodies maintain normal heights with preserved lordosis. No significant spondylolisthesis. Multilevel spondylosis and degenerative disc disease is noted with endplate osteophyte formation and multifocal disc space height loss. There is mild atlantoaxial degenerative change. No acute or suspicious soft tissue abnormality. Enlarged multinodular thyroid is similar to prior CT. Biapical pulmonary nodularity is also similar to prior. IMPRESSION: No acute cervical spine abnormality. No significant change compared to prior CT. Please note that all CT scans at this facility use dose modulation, iterative reconstruction, and/or weight-based dosing when appropriate to reduce radiation dose to as low as reasonably achievable. Dictated by Kelby Lieberman MD @ 04/24/2024 8:36:00 PM (Electronically Signed)
[2024-04-24] MEDS: ONDANSETRON 2 MG/ML inj 4 MG IVP (20:17)
[2024-04-24] MEDS: fentaNYL 100 MCG/2 ML inj 25 MCG IVP (20:17)
[2024-04-24 20:56] LABS: Basophils Absolute Auto 0.03 K/uL (0.00-0.30); Basophils Percent Auto 0.3 % (0.0-3.0); Eosinophils Percent Auto 3.8 % (0.0-7.0); Hematocrit 40.8 % (33.0-51.0); Hemoglobin* 12.9 gm/dL (12.0-16.0); Immature Granulocytes Abs Auto 0.03 K/uL (0.00-0.30); Immature Granulocytes Pct Auto 0.3 %; Lymphocytes Percent Auto 17.5 % (20-44); Mean Corpuscular HGB Conc 32 gm/dL (32-36); Mean Corpuscular Hemoglobin 28 pg (26-34); Mean Corpuscular Volume 89 fL (80-100); Monocytes Percent Auto 10.8 % (0.0-11.0); Neutrophils Absolute Auto 7.13 K/uL (1.7-7.0); Neutrophils Percent Auto 67.3 % (42.0-72.0); Platelet Count* 370 K/uL (140-440); RDW Coefficient of Variation % 12.8 % (11.5-15.5); Red Blood Count 4.57 m/uL (4.00-5.20); White Blood Count* 10.58 K/uL (4.50-11.00)
[2024-04-24 21:00] LABS: Slide Review Reflex No
--- NOTE | 2024-04-24 21:04 | ED_ITS ---
HPI - General Adult General Date Seen: 04/24/24 Chief complaint: Head Injury/Pain Stated complaint: head trauma Time Seen by Provider: 04/24/24 19:44 History of Present Illness HPI narrative: 79-year-old female brought to the ER today by EMS for evaluation after she had a ground level slip and fall and struck the back of her head against the floor. She has a past medical history of dementia and mild memory loss, also type 2 diabetes, coronary disease and she is on Plavix. History is obtained in part from paramedics, in part from the patient, and and supplemented by her . He does note that she has some memory loss. Apparently they were in the process of moving so their house is in a bit of disarray. She also has a history of some balance problems in the past. She was walking in her socks on the wood floor today when she lost her balance and fell backwards. She struck her head against the floor. Unknown if she had LOC. She has been complaining of headaches since then. She was too weak to get herself up so called 911. She also has posterior neck pain. No numbness or weakness or pain radiating down her arms. Since falling she has had a bit of a discomfort in her ?upper torso? essentially around her collarbone area. It is not known. It is not really pain. He is not feeling palpitations. No nausea. She is not having any low back pain. No abdominal pain. No pelvic pain. She did not injure her hips. No knee pain or ankle pain. Related Data Home Medications ?Medication ?Instructions ?Recorded ?Confirmed atorvastatin 40 mg tablet 40 mg PO HS 01/23/22 01/24/22 bupropion HCl 150 mg 24 hr tablet, 150 mg PO DAILY 01/23/22 04/24/24 extended release carvedilol 3.125 mg tablet 3.125 mg PO BID 01/23/22 01/24/22 clopidogrel 75 mg tablet 75 mg PO QAM 01/23/22 04/24/24 fluoxetine 10 mg capsule 10 mg PO QAM 01/23/22 01/24/22 nitroglycerin 0.4 mg sublingual 0.4 mg sublingual Q5M 01/23/22 01/24/22 tablet trazodone 100 mg tablet 100 mg PO 01/23/22 04/24/24 carbidopa 25 mg-levodopa 100 mg 1 tab PO 3XD 04/24/24 04/24/24 tablet donepezil 10 mg tablet 10 mg PO DAILY 04/24/24 04/24/24 fluoxetine 40 mg capsule 40 mg PO QAM 04/24/24 04/24/24 Previous Rx's ?Medication ?Instructions ?Recorded acetaminophen 325 mg tablet 650 mg (2 x 325 mg) PO Q6H PRN #30 01/24/22 tabs Allergies Allergy/AdvReac Type Severity Reaction Status Date / Time bumetanide Allergy Mild Nausea Verified 04/24/24 22:16 codeine Allergy Mild Nausea Verified 04/24/24 22:16 dextromethorphan Allergy Mild Nausea Verified 04/24/24 22:16 lisinopril Allergy Mild Verified 04/24/24 22:16 NSAIDS (Non-Steroidal Allergy Mild unsure Verified 04/24/24 22:16 Anti-Inflamma pentazocine Allergy Mild Unsure Verified 04/24/24 22:16 Tussinex Allergy Mild Nausea Uncoded 04/24/24 22:16 PFSH PFS Medical History (Updated 04/24/24 @ 21:37 by Selwyn Ortez MD) History of Clostridioides difficile infection (06/2009) ?Z86.19 - Personal history of other infectious and parasitic diseases (ICD- 10) Closed fracture of coccyx (01/23/22) ?S32.2XXA - Fracture of coccyx, initial encounter for closed fracture (ICD- 10) Surgical History (Updated 05/20/23 @ 15:38 by Sayda Alejo) History of section ?Z98.891 - History of uterine scar from previous surgery (ICD-10) History of tonsillectomy ?Z90.89 - Acquired absence of other organs (ICD-10) History of cholecystectomy ?Z90.49 - Acquired absence of other specified parts of digestive tract (ICD- 10) History of heart artery stent ?Z95.5 - Presence of coronary angioplasty implant and graft (ICD-10) History of right nephrectomy ?Z90.5 - Acquired absence of kidney (ICD-10) Family History (Updated 05/20/23 @ 15:54 by Sayda Alejo) Mother Heart disease Diabetes Sister Diabetes Father Adrenoleukodystrophy Daughter Breast cancer, Onset Age: 40 Social History Smoking Status: Never smoker Do you use any of these nicotine containing products: None Second hand tobacco smoke exposure: No How often do you have a drink containing alcohol: 2-4 times a month How many standard drinks containing alcohol do you have on a typical day: 1 or 2 How often do you have six or more drinks on one occasion: Never AUDIT-C Alcohol total score: 2 Non-prescribed substance use: denies use Caffeine: No service: No Exam Narrative: Exam Narrative: Primary Survey: A- patent. Speaking clearly. Phonation normal. No stridor. B- breathing easily. Lung sounds clear and equal. Oxygen saturation normal on room air C- no active bleeding. Blood pressure stable. Symmetric pulses and cap refill in 4 extremities. D- alert and oriented x3 but is a poor historian. She cannot remember her primary care provider's name. It sounds like they are probably through the [facility].. GCS 15. No focal deficits. Constitutional: Appears well-developed and well-nourished. Alert. Conversant. Non toxic. HENT: Head: She does have an occipital scalp hematoma with a small abrasion and evolving ecchymosis but no suturable laceration.. Nose: Nose normal. Mouth/Throat: Oral mucosa is clear and moist. no trismus. Pharynx normal. Tonsils symmetric. No tonsillar enlargement, erythema, or exudate. Eyes: Conjunctivae normal. EOM normal. Pupils equal, round, and reactive to light. No scleral icterus. Neck: She does complain of posterior neck pain and is tender without any focal midline tenderness. Cannot be cleared by clinical criteria due to her posterior neck pain. Normal range of motion. Neck supple. No tracheal deviation present. Cardiovascular: Normal rate, regular rhythm. No gallop. No friction rub. No murmur heard. Symmetric radial and PT artery pulses Pulmonary/Chest: Effort normal. No stridor. No respiratory distress. No wheezes. No rales. No rhonchi . No tenderness. Abdominal: Soft. No distension. No mass. No tenderness. No rebound. No guarding. Musculoskeletal: No T or L-spine midline tenderness. RUE: Normal range of motion. No tenderness. No deformity LUE: Normal range of motion. No tenderness. No deformity RLE: Normal range of motion. No edema. No tenderness. No deformity LLE: Normal range of motion. No edema. No tenderness. No deformity Lymph: No cervical adenopathy. Neurological: Alert and oriented to person, place, and time. She does have some dementia and is a poor historian. Normal strength. CN II-VII intact. No sensory deficit. GCS eye subscore is 4. GCS verbal subscore is 5. GCS motor subscore is 6. Normal coordination Skin: Skin is warm and dry. No rash noted. No pallor. Normal capillary refill. Psychiatric: Normal mood. Normal affect. She is polite and cooperative. Const: Vital Signs, click to edit/add: Vital Signs - 24 hr 04/24/24 19:32 04/24/24 20:10 04/24/24 20:15 Temperature 99.1 F Pulse Rate 85 83 Pulse Rate [Left P ulse Oximeter] 90 Respiratory Rate 20 Blood Pressure Blood Pressure [Le ft Upper Arm] 188/107 H Pulse Oximetry 97 96 96 Oxygen Delivery Me thod Room Air 04/24/24 20:23 04/24/24 20:30 04/24/24 20:45 Temperature Pulse Rate 74 86 76 Pulse Rate [Left P ulse Oximeter] Respiratory Rate 20 Blood Pressure 152/95 H Blood Pressure [Le ft Upper Arm] Pulse Oximetry 94 93 94 Oxygen Delivery Me thod 04/24/24 21:00 Temperature Pulse Rate 73 Pulse Rate [Left P ulse Oximeter] Respiratory Rate Blood Pressure Blood Pressure [Le ft Upper Arm] Pulse Oximetry 95 Oxygen Delivery Me thod Course Course ED Course: Recheck-vital stable. Secondary survey performed. After her head and C-spine imaging were negative she got up to a bedside commode to urinate. I cyst did with her transferring back to the bed from the commode. She was quite unstable and would have fallen over backwards had nurse tonight not been present to support her balance. notes that she has chronic gait instability with frequent falls but is more unstable than normal since her fall tonight. Secondary survey: Constitutional: Robust. Alert. Unsteady. HENT: Head: Occipital scalp hematoma. Still no laceration. Nose: Nose normal. Mouth/Throat: Oral mucosa is clear Eyes: Conjunctivae normal. EOM normal. Pupils equal, round, and reactive to light. No scleral icterus. Neck: Normal range of motion. Neck supple. No tracheal deviation present. She does have some prominence of the tissues at the manubrial notch at the base of her neck. This appears to be bony prominence. It is not really tender. Patient is not able to tell me how long it has been like this. Nor is her . Based on the bony prominence I suspect it is probably chronic. Consider possible sternoclavicular dislocation. Will obtain CT scan. Cardiovascular: Normal rate, regular rhythm. No gallop. No friction rub. No murmur heard. Symmetric radial artery pulses Pulmonary/Chest: Effort normal. No stridor. No respiratory distress. No wheezes. No rales. No rhonchi . No lateral ribcage tenderness. Abdominal: Soft. No distension. No mass. No tenderness. No rebound. No guarding. Musculoskeletal: RUE: Normal range of motion. No tenderness. No deformity LUE: Normal range of motion. No tenderness. No deformity Pelvis is stable. RLE: Normal range of motion. No edema. No tenderness. No deformity LLE: Normal range of motion. No edema. No tenderness. No deformity Neurological: Alert and oriented to person, place, and time. Normal strength in both biceps, triceps, deltoid, pcas, hip flexors, quad, hamstring gastrocnemius, tibialis anterior, EHL. She does have poor memory. Dementia is becoming more prominent along she is here. She is not able to recall events that happened recently. She relies on her for lot of her history. . CN II-VII intact. No sensory deficit. GCS eye subscore is 4. GCS verbal subscore is 5. GCS motor subscore is 6. Gait is very unsteady. She is not able to stand without a person to balance her. No visible nystagmus. Skin: Skin is warm and dry. No rash noted. No pallor. Normal capillary refill. Psychiatric: Normal mood. Normal affect. Vital Signs Vital signs: Initial Vital Signs Temperature 99.1 F 04/24/24 19:32 Temperature Source Temporal Artery Scan 04/24/24 19:32 Pulse Rate 90 04/24/24 19:32 Pulse Rhythm Regular 04/24/24 19:32 Respiratory Rate 20 04/24/24 19:32 Blood Pressure 188/107 H 04/24/24 19:32 Blood Pressure Mean 134 H 04/24/24 19:32 Blood Pressure Position Supine 04/24/24 19:32 Pulse Oximetry 97 04/24/24 19:32 Oxygen Delivery Method Room Air 04/24/24 19:32 Vital Signs Temperature 99.1 F 04/24/24 19:32 Pulse Rate 90 04/24/24 19:32 Respiratory Rate 20 04/24/24 19:32 Blood Pressure 188/107 H 04/24/24 19:32 Pulse Oximetry 97 04/24/24 19:32 Oxygen Delivery Method Room Air 04/24/24 19:32 Temperature 99.1 F 04/24/24 19:32 Pulse Rate 73 04/24/24 21:00 Respiratory Rate 20 04/24/24 20:23 Blood Pressure 152/95 H 04/24/24 20:23 Pulse Oximetry 95 04/24/24 21:00 Oxygen Delivery Method Room Air 04/24/24 19:32 Medications Administered Medications: Discontinued Medications Generic Name Dose Route Start Last Admin Trade Name Freq PRN Reason Stop Dose Admin Fentanyl 25 mcg 04/24/24 19:44 04/24/24 20:17 Fentanyl 100 Mcg/2 Ml Inj IVP 04/24/24 19:45 25 mcg ONCE ONE Administration Ondansetron HCl 4 mg 04/24/24 19:44 04/24/24 20:17 Ondansetron 2 Mg/Ml Inj IVP 04/24/24 19:45 4 mg ONCE ONE Administration Medical Decision Making MDM Narrative Medical decision making narrative: This patient presents with blunt head trauma after a ground level slip and fall. She is on Plavix. Primary concern is for possible traumatic head injury. She does complain of a headache. She has an occipital scalp hematoma that does not require sutures. Differential includes intracranial injuries (e.g. skull fracture, epidural hematoma, subdural hematoma, intracerebral hemorrhage, and traumatic subarachnoid hemorrhage), verses concussion or other traumatic brain injury. CT imaging was obtained and fortunately was normal. She is quite unsteady. It is unclear how long she has been like this. notes that she does have frequent falls at home. Initially it was felt that she does feel because of her chronic gait instability. However she is quite unsteady and not really able to stand at the bedside unassisted. Unclear if this is due to concussion, side effects of fentanyl which he gave her for pain, or some other metabolic cause. Consider possible stroke, although with no clear time of onset for the instability, she would not be a candidate for a thrombolytic or intra target intervention. Would hold off on stroke team activation therefore. She also has posterior neck pain after her fall. No focal neurologic deficits. However she cannot be cleared by clinical criteria due to location of her pain as well as her associated dementia. C-spine CT is obtained and is negative for any acute fracture or subluxation. She also complains of a discomfort across her upper torso that began after the fall tonrory. Unclear if it is really posttraumatic or not and history is unreliable because of her dementia. Consider possible ACS although it is pretty clear that she did not fall from a syncopal event but rather slipped and fell because of her socks. EKG shows a sinus rhythm. No ischemia. Initial troponin is undetectable. Will need serial troponins since the onset of her upper torso discomfort began this evening.. On exam she also has prominence of the clavicular heads or some material at the manubrial notch at her upper chest. It is unclear if this is new or old. It is not tender so I suspect told him probably nontraumatic. Will obtain CT scan of her chest to evaluate for possible traumatic injury there or look for other causes such as a chronic mediastinal mass. Will also perform PE protocol with a chest CT to look for PE as a cause for her upper thoracic discomfort. Because of her fall will also obtain CT scan abdomen pelvis to look for other internal injuries. Is clear with her gait instability that she will require hospitalization. She would be at extremely high risk to fall if we try to discharge her home with her clementine. She and her are in agreement on that. , when asked, also reports urinary frequency for the past few days. Consider possible UTI as a cause for instability. Clean catch urinalysis shows 5-10 WBC and + LE which could confirm UTI. bret treat with cephalexin Lab workup shows normal sodium, normal potassium. Creatinine is 1.7, unchanged from baseline. BUN is 30, also unchanged. She has reportedly been drinking normally lately so do not suspect dehydration as a cause for her unsteadiness. Given current nationwide shortage of IV fluids would hold off on saline bolus. Labs show normal hemoglobin of 12.9 and normal white count. No fevers to suggest a pneumonia or COVID. She does not appear to be septic. Discussed with our hospitalist, Dr. Lenz at 10:00 p.m.. We discussed the case in detail and she agrees that the patient would require hospitalization. However she will not except for the admission at this time until formal results of the CT scan chest/abdomen/pelvis are back.. Discussed with my partner, Dr. Ramirez. Will follow-up with hospitalist after the CT is back to discuss the results and if there is no findings requiring transfer, she will be admitted to the medical floor here at [facility]. Lab Data Labs: Lab Results 04/24/24 04/24/24 Range/Units 20:47 21:30 WBC 10.58 (4.50-11.00) K/uL RBC 4.57 (4.00-5.20) m/uL Hgb 12.9 (12.0-16.0) gm/dL Hct 40.8 (33.0-51.0) % MCV 89 (80-100) fL MCH 28 (26-34) pg MCHC 32 (32-36) gm/dL RDW Coeff of Jeannine 12.8 (11.5-15.5) % Plt Count 370 (140-440) K/uL Neut % (Auto) 67.3 (42.0-72.0) % Lymph % (Auto) 17.5 L (20-44) % [place] % (Auto) 10.8 (0.0-11.0) % Eos % (Auto) 3.8 (0.0-7.0) % Baso % (Auto) 0.3 (0.0-3.0) % Neut # (Auto) 7.13 H (1.7-7.0) K/uL Lymph # (Auto) 1.90 (0.90-2.90) K/uL [place] # (Auto) 1.10 H (0.00-0.90) K/UL Eos # (Auto) 0.40 (0.00-0.50) K/uL Baso # (Auto) 0.03 (0.00-0.30) K/uL Abs Immat Gran (auto) 0.03 (0.00-0.30) K/uL Imm/Tot Granulo (auto) 0.3 % INR 0.93 (0.91-1.10) Sodium 135 (135-149) mmol/L Potassium 4.8 (3.6-5.1) mmol/L Chloride 103 (96-114) mmol/L Carbon Dioxide 27 (20-32) mmol/L Anion Gap 5 L (7-15) mEq/L BUN 30 (7-30) mg/dL Creatinine 1.7 H (0.5-1.5) mg/dL Estimated Creat Clear 25.12 Estimated GFR 30 ml/min Glucose 135 H (60-115) mg/dL Calcium 9.1 (8.4-10.6) mg/dL Troponin I < 0.01 L (0.01-0.04) ng/mL Urine Color Yellow (Yellow) Urine Appearance Clear (Clear) Urine pH 6.0 (5.0-8.5) Ur Specific [place] 1.025 (1.000-1.030) Urine Protein 2+ A (Negative) Urine Glucose (UA) Negative (Negative) Urine Ketones Negative (Negative) Urine Blood Trace-intact A (Negative) Urine Nitrite Negative (Negative) Urine Bilirubin Negative (Negative) Urine Urobilinogen 0.2 (0.2-1.0) Ur Leukocyte Esterase 1+ A (Negative) Urine RBC 0-2 (0-2) Urine WBC 5-10 A (0-5) Ur Squamous Epith Cells None (None-Few) Urine Bacteria Few A (None) Imaging Data CT scan - head: Attestation: I have reviewed the pertinent imaging results. Radiologist's impression: Impression: Small posterior vertex scalp hematoma. Otherwise, stable age-related and chronic small-vessel disease changes of the brain without acute intracranial abnormality. CT C spine: Attestation: I have reviewed the pertinent imaging results. Radiologist's impression: IMPRESSION: No acute cervical spine abnormality. No significant change compared to prior CT. ECG Data Attestation: I personally reviewed and interpreted this ECG as follows: Interpretation: Normal sinus rhythm Rate: 81 CT: 162 QRS axis: Left axis deviation. No pathologic Q-waves. ST segment/T wave: No ST segment elevation or depression QTc: 439 Discharge Plan Discharge Clinical Impression: Head injury, Neck pain, Chest pain, Frequent falls Patient Disposition: Admitted As Observation
[2024-04-24 21:13] LABS: INR 0.93 (0.91-1.10)
[2024-04-24 21:18] LABS: Chloride* 103 mmol/L (96-114); Potassium* 4.8 mmol/L (3.6-5.1); Sodium* 135 mmol/L (135-149)
[2024-04-24 21:21] LABS: Anion Gap 5 mEq/L (7-15); Blood Urea Nitrogen* 30 mg/dL (7-30); Calcium* 9.1 mg/dL (8.4-10.6); Carbon Dioxide* 27 mmol/L (20-32); Creatinine* 1.7 mg/dL (0.5-1.5); Est. Creatinine Clearance* 25.12; Estimated Glomerular Filt Rate 30 ml/min; Glucose* 135 mg/dL (60-115)
--- NOTE | 2024-04-24 21:30 | CRLHL7_ITS ---
For Patients: As a result of the Century Cures Act, medical imaging exams and procedure reports are released immediately into your electronic medical record. You may view this report before your referring provider. If you have questions, please contact your health care provider. Indication: fall, altered mental status, chest pain back pain Technique: CT chest/abdomen/pelvis with IV contrast, 74 mL Isovue 370 Comparison: CT chest report from 02/27/2024 Findings: Chest: No thyroid nodules. No thoracic lymphadenopathy. The heart is within normal limits in size. No pericardial effusion. Coronary artery calcifications. The thoracic aorta and pulmonary artery are within normal limits in caliber. There is no central pulmonary embolism. No focal airspace consolidation, pleural effusion, or pneumothorax. There are numerous bilateral solid pulmonary nodules, to correlate with prior imaging. Trace bibasilar linear atelectasis/scarring. Abdomen/pelvis: The liver is unremarkable in appearance. Postsurgical changes of cholecystectomy with expected biliary ductal dilatation. The spleen, pancreas, and left adrenal gland are unremarkable in appearance. The right adrenal gland is not visualized. Postsurgical changes of right nephrectomy. Left kidney is normal in size with no suspicious enhancing renal masses. Simple appearing exophytic left renal cyst measuring approximately 1.5 centimeters. No renal calculi or hydroureteronephrosis. The bladder is unremarkable in appearance. The uterus and bilateral adnexa are within normal limits in appearance. Small hiatal hernia. No evidence of bowel obstruction, inflammation, or acute traumatic injury. The appendix is not discretely visualized. Colonic diverticulosis without CT evidence of acute diverticulitis. No free fluid or free air. No abscess. No abdominopelvic lymphadenopathy. No abdominal aortic aneurysm. Moderate calcific atherosclerosis of the aortoiliac system and its branches. Soft tissue/musculoskeletal: No acute soft tissue abnormality. No acute fracture or malalignment. Remote compression deformity of the T12 vertebral body with slight retropulsed fracture fragment along the superior endplate. Multilevel degenerative changes seen throughout the spine. Degenerative changes of the bilateral sacroiliac and femoroacetabular joints. Impression: 1. No CT evidence of acute traumatic injury or an acute process involving the chest, abdomen, or pelvis. 2. Incidental findings as detailed above, to include multiple solid pulmonary nodules to correlate with prior imaging. Please note that all CT scans at this facility use dose modulation, iterative reconstruction, and/or weight-based dosing when appropriate to reduce radiation dose to as low as reasonably achievable. Dictated by Mina Walton MD @ 04/24/2024 10:51:52 PM (Electronically Signed)
[2024-04-24 21:39] LABS: Troponin I* < 0.01 ng/mL (0.01-0.04)
[2024-04-24 21:44] LABS: Appearance Urine Clear (Clear); Bilirubin Urine Negative (Negative); Blood Urine Trace-intact (Negative); Color Urine Yellow (Yellow); Glucose Urine Negative (Negative); Ketones Urine Negative (Negative); Leukocyte Esterase Urine 1+ (Negative); Nitrite Urine Negative (Negative); Protein Urine 2+ (Negative); Specific Gravity Urine 1.025 (1.000-1.030); Urobilinogen Urine 0.2 (0.2-1.0)
[2024-04-24 22:00] LABS: Bacteria Urine Few; RBC Urine 0-2 (0-2)
[2024-04-24] MEDS: cephALEXin 500 MG CAPSULE PO (22:34)
--- NOTE | 2024-04-24 23:38 | P.IMHP_ITS ---
Hospitalist- H&P: HPI History of Present Illness Date Seen: 04/24/24 Chief complaint: head trauma Narrative: Brinda Harris is a 79 year old female w/ past medical history of dementia and mild dementia, HTN, DM, coronary artery disease on Plavix, CKD, and Hx of ICH. Patient presented with a witnessed fall, mechanical one as described by her and she hit the back of her head, it seems the patient has a history of chronic gait instability and falls. Patient is a poor historian, she added that she felt an upper torso discomfort. In addition, her noticed that she has increased urinary frequency recently. At the ED, patient was hemodynamically stable. Her creatinine is at baseline, 1.7. Troponin was negative. Urinalysis positive for leukocyte esterase and mildly elevated white blood cells. EKG without ischemia. CT head cervical spine CT and chest/abdomen/pelvis CT all were done at the ED and they were unremarkable except for already diagnosed pulmonary nodules. At the ED they tried to walk the patient to evaluate her ability to go back home but the patien t was unstable and it was decided to admit the patient for evaluation and management. Review of Systems Status of ROS: Reports: 6 or more systems reviewed and unremarkable except as noted in History and below [facility] Medical History (Updated 04/24/24 @ 23:49 by Sydnie Lenz MD) CKD (chronic kidney disease) ?N18.9 - Chronic kidney disease, unspecified (ICD-10) Gait instability ?R26.81 - Unsteadiness on feet (ICD-10) Pulmonary nodules ?R91.8 - Other nonspecific abnormal finding of lung field (ICD-10) History of Clostridioides difficile infection (06/2009) ?Z86.19 - Personal history of other infectious and parasitic diseases (ICD- 10) Closed fracture of coccyx (01/23/22) ?S32.2XXA - Fracture of coccyx, initial encounter for closed fracture (ICD- 10) Surgical History (Updated 05/20/23 @ 15:38 by Sayda Alejo) History of section ?Z98.891 - History of uterine scar from previous surgery (ICD-10) History of tonsillectomy ?Z90.89 - Acquired absence of other organs (ICD-10) History of cholecystectomy ?Z90.49 - Acquired absence of other specified parts of digestive tract (ICD- 10) History of heart artery stent ?Z95.5 - Presence of coronary angioplasty implant and graft (ICD-10) History of right nephrectomy ?Z90.5 - Acquired absence of kidney (ICD-10) Family History (Updated 05/20/23 @ 15:54 by Sayda Alejo) Mother Heart disease Diabetes Sister Diabetes Father Adrenoleukodystrophy Daughter Breast cancer, Onset Age: 40 Social History Smoking Status: Never smoker Do you use any of these nicotine containing products: None Second hand tobacco smoke exposure: No How often do you have a drink containing alcohol: 2-4 times a month How many standard drinks containing alcohol do you have on a typical day: 1 or 2 How often do you have six or more drinks on one occasion: Never AUDIT-C Alcohol total score: 2 Non-prescribed substance use: denies use Caffeine: No service: No Meds Home Medications and Allergies Home Medications ?Medication ?Instructions ?Recorded ?Confirmed ?Type atorvastatin 40 mg tablet 40 mg PO HS 01/23/22 01/24/22 History bupropion HCl 150 mg 24 hr tablet, 150 mg PO DAILY 01/23/22 04/24/24 History extended release carvedilol 3.125 mg tablet 3.125 mg PO BID 01/23/22 01/24/22 History clopidogrel 75 mg tablet 75 mg PO QAM 01/23/22 04/24/24 History fluoxetine 10 mg capsule 10 mg PO QAM 01/23/22 01/24/22 History nitroglycerin 0.4 mg sublingual 0.4 mg sublingual Q5M 01/23/22 01/24/22 History tablet trazodone 100 mg tablet 100 mg PO HS 01/23/22 04/24/24 History carbidopa 25 mg-levodopa 100 mg 1 tab PO 3XD 04/24/24 04/24/24 History tablet donepezil 10 mg tablet 10 mg PO DAILY 04/24/24 04/24/24 History fluoxetine 40 mg capsule 40 mg PO QAM 04/24/24 04/24/24 History Allergies Allergy/AdvReac Type Severity Reaction Status Date / Time bumetanide Allergy Mild Nausea Verified 04/24/24 22:16 codeine Allergy Mild Nausea Verified 04/24/24 22:16 dextromethorphan Allergy Mild Nausea Verified 04/24/24 22:16 lisinopril Allergy Mild Verified 04/24/24 22:16 NSAIDS (Non-Steroidal Allergy Mild unsure Verified 04/24/24 22:16 Anti-Inflamma pentazocine Allergy Mild Unsure Verified 04/24/24 22:16 Tussinex Allergy Mild Nausea Uncoded 04/24/24 22:16 Exam Narrative: Exam Narrative: GENERAL: ?Elderly, comfortable, no acute distress. HEAD AND NECK:? Hematoma at the occipital area, normocephalic CARDIOVASCULAR:? RRR.? Normal S1, S2.? No murmurs. RESPIRATORY:? Clear to auscultation B/L.? Good air entry B/L. No wheezes or rhonchi. GASTROINTESTINAL:? Not distended, not tender to palpation. NEUROLOGY:? Alert, awake, oriented.? Normal speech.? PSYCH:? Normal mood, normal affect. Const: Vital Signs, click to edit/add: Vital Signs - 24 hr 04/24/24 19:32 04/24/24 20:10 04/24/24 20:15 Temperature 99.1 F Pulse Rate 85 83 Pulse Rate [Left P ulse Oximeter] 90 Respiratory Rate 20 Blood Pressure Blood Pressure [Le ft Upper Arm] 188/107 H Pulse Oximetry 97 96 96 Oxygen Delivery Me thod Room Air 04/24/24 20:23 04/24/24 20:30 04/24/24 20:45 Temperature Pulse Rate 74 86 76 Pulse Rate [Left P ulse Oximeter] Respiratory Rate 20 Blood Pressure 152/95 H Blood Pressure [Le ft Upper Arm] Pulse Oximetry 94 93 94 Oxygen Delivery Me thod 04/24/24 21:00 04/24/24 21:31 04/24/24 21:32 Temperature Pulse Rate 73 80 76 Pulse Rate [Left P ulse Oximeter] Respiratory Rate Blood Pressure 176/101 H Blood Pressure [Le ft Upper Arm] Pulse Oximetry 95 96 97 Oxygen Delivery Me thod 04/24/24 21:45 04/24/24 22:00 04/24/24 22:01 Temperature Pulse Rate 79 74 75 Pulse Rate [Left P ulse Oximeter] Respiratory Rate Blood Pressure 166/93 H Blood Pressure [Le ft Upper Arm] Pulse Oximetry 95 97 97 Oxygen Delivery Me thod 04/24/24 22:23 04/24/24 22:30 04/24/24 22:32 Temperature Pulse Rate 75 72 81 Pulse Rate [Left P ulse Oximeter] Respiratory Rate Blood Pressure 160/100 H Blood Pressure [Le ft Upper Arm] Pulse Oximetry 95 95 96 [facility] 04/24/24 22:45 04/24/24 23:01 04/24/24 23:15 Temperature Pulse Rate 76 91 78 Pulse Rate [Left P ulse Oximeter] Respiratory Rate Blood Pressure Blood Pressure [Le ft Upper Arm] Pulse Oximetry 96 97 95 Oxygen Delivery [facility] 04/24/24 23:30 04/24/24 23:32 Temperature Pulse Rate 69 75 Pulse Rate [Left P ulse Oximeter] Respiratory Rate 16 Blood Pressure 165/100 H Blood Pressure [Le ft Upper Arm] Pulse Oximetry 94 94 Oxygen Delivery [facility] Hospitalist - H&P: Result Labs Labs: Short CBC 04/24/24 Range/Units 20:47 WBC 10.58 (4.50-11.00) K/uL Hgb 12.9 (12.0-16.0) gm/dL Hct 40.8 (33.0-51.0) % Plt Count 370 (140-440) K/uL BMP 04/24/24 20:47 Sodium 135 Potassium 4.8 Chloride 103 Carbon Dioxide 27 BUN 30 Creatinine 1.7 H Glucose 135 H Calcium 9.1 Cardiac Enzymes 04/24/24 Range/Units 20:47 Troponin I < 0.01 L (0.01-0.04) ng/mL Urine 04/24/24 Range/Units 21:30 Urine Color Yellow (Yellow) Urine Appearance Clear (Clear) Urine pH 6.0 (5.0-8.5) Ur Specific [place] 1.025 (1.000-1.030) Urine Protein 2+ A (Negative) Urine Glucose (UA) Negative (Negative) Imaging CT scan - head: Radiologist's impression: Technique: Volumetric multidetector CT images of the head were obtained without the administration of low osmolar intravenous contrast. Comparison: CT head September 30, 2022 Findings: There is no intra-axial or extra-axial fluid collection. There is no mass effect or midline shift. There is age-related cortical atrophy with mild sulcal widening and ex vacuo dilatation of the lateral ventricles. There are chronic small vessel disease changes in the subcortical and periventricular white matter without lost robbins-white differentiation. The orbits and their contents are grossly within normal limits. There is a small posterior vertex scalp hematoma. The bony calvarium is otherwise grossly intact. The paranasal sinuses are clear. The mastoid air cells are well aerated. Impression: Small posterior vertex scalp hematoma. Otherwise, stable age-related and chronic small-vessel disease changes of the brain without acute intracranial abnormality. Please note that all CT scans at this facility use dose modulation, iterative reconstruction, and/or weight-based dosing when appropriate to reduce radiation dose to as low as reasonably achievable. Dictated by Edil Bledsoe MD @ 04/24/2024 8:35:[address] Chest/Ab/Pelvis: Radiologist's impression: CT chest/abdomen/pelvis with IV contrast, 74 mL Isovue 370 Comparison: CT chest report from 02/27/2024 Findings: Chest: No thyroid nodules. No thoracic lymphadenopathy. The heart is within normal limits in size. No pericardial effusion. Coronary artery calcifications. The thoracic aorta and pulmonary artery are within normal limits in caliber. There is no central pulmonary embolism. No focal airspace consolidation, pleural effusion, or pneumothorax. There are numerous bilateral solid pulmonary nodules, to correlate with prior imaging. Trace bibasilar linear atelectasis/scarring. Abdomen/pelvis: The liver is unremarkable in appearance. Postsurgical changes of cholecystectomy with expected biliary ductal dilatation. The spleen, pancreas, and left adrenal gland are unremarkable in appearance. The right adrenal gland is not visualized. Postsurgical changes of right nephrectomy. Left kidney is normal in size with no suspicious enhancing renal masses. Simple appearing exophytic left renal cyst measuring approximately 1.5 centimeters. No renal calculi or hydroureteronephrosis. The bladder is unremarkable in appearance. The uterus and bilateral adnexa are within normal limits in appearance. Small hiatal hernia. No evidence of bowel obstruction, inflammation, or acute traumatic injury. The appendix is not discretely visualized. Colonic diverticulosis without CT evidence of acute diverticulitis. No free fluid or free air. No abscess. No abdominopelvic lymphadenopathy. No abdominal aortic aneurysm. Moderate calcific atherosclerosis of the aortoiliac system and its branches. Soft tissue/musculoskeletal: No acute soft tissue abnormality. No acute fracture or malalignment. Remote compression deformity of the T12 vertebral body with slight retropulsed fracture fragment along the superior endplate. Multilevel degenerative changes seen throughout the spine. Degenerative changes of the bilateral sacroiliac and femoroacetabular joints. Impression: 1. No CT evidence of acute traumatic injury or an acute process involving the chest, abdomen, or pelvis. 2. Incidental findings as detailed above, to include multiple solid pulmonary nodules to correlate with prior imaging. Please note that all CT scans at this facility use dose modulation, iterative reconstruction, and/or weight-based dosing when appropriate to reduce radiation dose to as low as reasonably achievable. Dictated by Mina Walton MD @ 04/24/2024 10:51:[address]- Other: Radiologist's impression: TECHNIQUE: CT cervical spine without contrast. COMPARISON: CT cervical spine 01/23/2022.. CT chest 02/25/2024. FINDINGS: No acute fracture or suspicious osseous lesion. The cervical vertebral bodies maintain normal heights with preserved lordosis. No significant spondylolisthesis. Multilevel spondylosis and degenerative disc disease is noted with endplate osteophyte formation and multifocal disc space height loss. There is mild atlantoaxial degenerative change. No acute or suspicious soft tissue abnormality. Enlarged multinodular thyroid is similar to prior CT. Biapical pulmonary nodularity is also similar to prior. IMPRESSION: No acute cervical spine abnormality. No significant change compared to prior CT. Please note that all CT scans at this facility use dose modulation, iterative reconstruction, and/or weight-based dosing when appropriate to reduce radiation dose to as low as reasonably achievable. Dictated by Kelby Lieberman MD @ 04/24/2024 8:36:00 PM Assessment and Plan Assessment and plan (1) Gait instability: Problem comment: Patient presented with a witnessed fall, mechanical one as described by her and she hit the back of her head, it seems the patient has a history of chronic gait instability and falls. 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 At the ED they tried to walk the patient to evaluate her ability to go back home but the patient was unstable and it was decided to admit the patient for evaluation and management. Status: Acute Assessment and Plan: . (3) Chest pain: Problem comment: Troponin was negative. EKG without ischemia. Trend [place] Status: Acute (4) UTI (urinary tract infection): Problem comment: +ve UA Increased frequency per her . Cephalexin was given at the ED, will start ceftriaxone Status: Acute (5) CAD (coronary artery disease): Problem comment: MD and stents in 2002. STEMI 2008. NSTEMI 11/26/21. Resume plavix Status: Chronic (6) Hypertension: Status: Chronic (7) DM (diabetes mellitus), type 2: Status: Chronic (8) CKD (chronic kidney disease): Problem comment: at baseline 1.7 Status: Acute (9) Pulmonary nodules: Status: Acute Total Time Spent Total Time Spent: Time spent: Today I spent 75 minutes seeing the patient, discussing the patient with ER staff, reviewing Expanse and EPIC notes/diagnostics, discussing the care plan with our care time that includes social work, PT/OT, pharmacy, RT, chcf and documenting my impressions and plan in the medical record.
[2024-04-25] VITALS (11 sets, daily range): BP systolic 127–193; BP diastolic 86–117; PULSE 61–109; RESP 16–18; TEMP 36.3–36.8; O2SAT 96–99
[2024-04-25] MEDS: 0.9 % SODIUM CHLORIDE 1000 ml 1,000 ML 100 ML IV (00:38)
[2024-04-25 00:49] LABS: Troponin I* < 0.01 ng/mL (0.01-0.04)
[2024-04-25] MEDS: ACETAMINOPHEN 325 MG TABLET 650 MG PO ×4 (01:01→20:54)
[2024-04-25] MEDS: LABETALOL HCL 5 MG/ML inj 10 MG IVP (03:15)
[2024-04-25 06:22] LABS: Hematocrit 43.4 % (33.0-51.0); Hemoglobin* 13.6 gm/dL (12.0-16.0); Mean Corpuscular HGB Conc 31 gm/dL (32-36); Mean Corpuscular Hemoglobin 28 pg (26-34); Mean Corpuscular Volume 90 fL (80-100); Platelet Count* 376 K/uL (140-440); Red Blood Count 4.82 m/uL (4.00-5.20); White Blood Count* 10.94 K/uL (4.50-11.00)
[2024-04-25 06:24] LABS: Slide Review Reflex No
--- NOTE | 2024-04-25 06:30 | PC.NURSE ---
END OF SHIFT NOTE: PT PLEASANT AND COOPERATIVE WITH CARES. A&O TO SELF, PLACE AND SITUATION. WHEN ASKED DATE PT STATED 2024. HEMATOMA AND SUPERFICIAL ABRASION TO POSTERIOR OF HEAD, SCANT AMT OF DRIED BLOOD PRESENT. AMBULATES WITH A2 PIVOT TO BSC. FREQUENTLY NEEDING TO URINATE WITH LITTLE OUTPUT. DID NOT SLEEP MUCH THROUGHOUT NIGHT DUE TO FREQUENCY OF NEEDING TO VOID. BP'S HYPERTENSIVE 180-190/105-90'S. UPDATED MD; ADMINISTERED ONE TIME ORDER OF LABETOLOL. BP'S REMAIN HYPERTENSIVE. PT C/O NECK PAIN STIFF WITH LITTLE RELIEF FROM PRN PAIN RELIEVER. PT REPORTS FEELING DIZZY WITH ACTIVITY AND TURNING HEAD SIDE TO SIDE AND UP AND DOWN. TELE NSR.
[2024-04-25 06:31] LABS: Chloride* 104 mmol/L (96-114)
[2024-04-25 06:32] LABS: Albumin* 3.8 g/dL (3.3-5.0); Potassium* 5.3 mmol/L (3.6-5.1); Sodium* 137 mmol/L (135-149)
[2024-04-25 06:35] LABS: Alanine Aminotransferase* 7 U/L (4-35); Alkaline Phosphatase* 91 U/L (40-150); Anion Gap 4 mEq/L (7-15); Aspartate Amino Transferase* 22 U/L (12-35); Bilirubin Total* 0.4 mg/dL (0.1-1.5); Blood Urea Nitrogen* 26 mg/dL (7-30); Carbon Dioxide* 29 mmol/L (20-32); Creatinine* 1.6 mg/dL (0.5-1.5); Est. Creatinine Clearance* 26.69; Estimated Glomerular Filt Rate 33 ml/min; Glucose* 136 mg/dL (60-115); Total Protein* 6.5 g/dL (6.0-8.3)
[2024-04-25 06:36] LABS: Calcium* 9.2 mg/dL (8.4-10.6); Magnesium* 2.2 mg/dL (1.5-2.6)
[2024-04-25] MEDS: carvediloL 6.25 MG TABLET 3.125 MG PO ×2 (07:34→20:54)
[2024-04-25] MEDS: LIDOCAINE 5% PATCH 1 PATCH TRANSDERMA (08:45)
[2024-04-25] MEDS: cefTRIAXone 1 GM in 0.9 % SODIUM CHLORIDE Mini-bag 100 ML IVPB (08:47)
[2024-04-25] MEDS: SODIUM CHLORIDE 0.9 % (FLUSH) 10 ML SYRINGE 5 ML IVF ×2 (08:54→21:04)
[2024-04-25] MEDS: CLOPIDOGREL 75 MG TABLET PO (08:54)
[2024-04-25] MEDS: HEPARIN 5,000 UNIT/0.5 ML INJ 5000 UNIT SUBCUT ×2 (09:45→20:55)
--- NOTE | 2024-04-25 09:51 | P.IMPN_ITS ---
Progress Note: A&P Assessment and plan (1) Gait instability: Problem details: Acute on chronic recurrent. Recently diagnosed with Parkinson's in September 2023 Patient presented with a witnessed fall, mechanical one as described by her and she hit the back of her head, it seems the patient has a history of chronic gait instability and falls. Fall precautions PT / OT bilingual social worker consult for discharge/placement needs. Lives in own home with Status: Acute (2) Frequent falls: Problem details: Acute on chronic recurrent. Recently diagnosed with Parkinson's in September [address] head cervical spine CT and chest/abdomen/pelvis CT all were done at the ED and they were unremarkable except for already diagnosed pulmonary nodules.? At the ED they tried to walk the patient to evaluate her ability to go back home but the patient was unstable and it was decided to admit the patient for evaluation and management. PT/OT, drug abuse social worker Status: Acute (3) Neck pain: Problem details: Lateral neck pain s/p fall, worse with rotation. CT C-spine without acute abnormalities Scheduled Tylenol, lidocaine patch, ice and/or heat as needed Status: Acute (4) Head injury: Problem details: S/p mechanical fall without reported loss of consciousness. CT head unremarkable for acute findings Status: Acute (5) Parkinsons disease: Problem details: Given this diagnosis in September 2023 and started on Sinemet Followed by [facility] neurology, last visit was with Dr. Reid 10/21/23 Status: Acute (6) Cognitive impairment: Problem details: Continue Aricept Followed by [facility] Neurology, no supporting evidence of Lewy body dementia during last evaluation in October Status: Acute (7) UTI (urinary tract infection): Problem details: +ve UA Increased frequency per her Cephalexin was given at the ED, will start ceftriaxone, UC pending Status: Acute (8) Hypertension: Problem details: Elevated since admission, asymptomatic, though suspect under reporting pain s/p fall Resume home carvedilol. P.r.n. labetalol, hydralazine Improve pain management Continue to monitor Status: Chronic (9) CAD (coronary artery disease): Problem details: [place] and stents in 2002. STEMI 2008. NSTEMI 11/26/21. Resume plavix Status: Chronic (10) DM (diabetes mellitus), type 2: Problem details: Being monitored, last A1c 5.9 nearly 2 years ago Repeat A1c Status: Chronic (11) CKD (chronic kidney disease): Problem details: at baseline 1.7, continue to monitor Status: Acute (12) Hyperkalemia: Problem details: Potassium 5.3, baseline appears to be 4.4-5.3, continue to monitor Status: Acute (13) Pulmonary nodules: Problem details: CT shows numerous bilateral solid pulmonary nodules, to correlate with prior imaging Status: Acute (14) Chest pain: Problem details: RESOLVED Troponin was negative in ED, flat on recheck EKG without ischemia Status: Resolved Plan Continue IV antibiotics, awaiting UC. Continue with PT OT, drug abuse social worker for discharge planning/placement needs. Time Spent With Patient Total time spent: Total time spent caring for the patient today was 45 minutes. This includes time spent for the visit reviewing the chart, time spent during the visit, time spent after the visit and documentation and planning in coordination of care. Subjective Date Seen: 04/25/24 Interval history: Patient is sitting up in a chair this morning. Complains of right greater than left lateral neck pain following fall. Worse with lateral rotation. Denies headache or dizziness. Denies chest pain or shortness of breath. Tolerating orals without nausea vomiting. No events were reported overnight. Exam Narrative: Exam Narrative: PHYSICAL EXAM General: Pleasant, NAD HEENT: Normocephalic, atraumatic, sclera white, EOMI, oral mucosa moist Cardiovascular: RRR, S1S2. No pitting edema Pulmonary: CTA bilaterally without rhonchi, rales, expiratory wheezes. No dyspnea on room air Neurological: Alert, answering questions appropriately this morning, cranial nerves intact, no focal findings Extremities: No gross joint deformity or swelling. AROMI. Neurovascularly intact Skin: Warm, dry. Const: Vital Signs, click to edit/add: Vital Signs - 24 hr 04/24/24 19:32 04/24/24 20:10 04/24/24 20:15 Temperature 99.1 F Pulse Rate 85 83 Pulse Rate [Left P ulse Oximeter] 90 Pulse Rate [Pulse Oximeter] Respiratory Rate 20 Blood Pressure Blood Pressure [Le ft Arm] Blood Pressure [Le ft Upper Arm] 188/107 H Pulse Oximetry 97 96 96 Oxygen Delivery Me thod Room Air 04/24/24 20:23 04/24/24 20:30 04/24/24 20:45 Temperature Pulse Rate 74 86 76 Pulse Rate [Left P ulse Oximeter] Pulse Rate [Pulse Oximeter] Respiratory Rate 20 Blood Pressure 152/95 H Blood Pressure [Le ft Arm] Blood Pressure [Le ft Upper Arm] Pulse Oximetry 94 93 94 Oxygen Delivery Me thod 04/24/24 21:00 04/24/24 21:31 04/24/24 21:32 Temperature Pulse Rate 73 80 76 Pulse Rate [Left P ulse Oximeter] Pulse Rate [Pulse Oximeter] Respiratory Rate Blood Pressure 176/101 H Blood Pressure [Le ft Arm] Blood Pressure [Le ft Upper Arm] Pulse Oximetry 95 96 97 Oxygen Delivery Me thod 04/24/24 21:45 04/24/24 22:00 04/24/24 22:01 Temperature Pulse Rate 79 74 75 Pulse Rate [Left P ulse Oximeter] Pulse Rate [Pulse Oximeter] Respiratory Rate Blood Pressure 166/93 H Blood Pressure [Le ft Arm] Blood Pressure [Le ft Upper Arm] Pulse Oximetry 95 97 97 Oxygen Delivery Me thod 04/24/24 22:23 04/24/24 22:30 04/24/24 22:32 Temperature Pulse Rate 75 72 81 Pulse Rate [Left P ulse Oximeter] Pulse Rate [Pulse Oximeter] Respiratory Rate Blood Pressure 160/100 H Blood Pressure [Le ft Arm] Blood Pressure [Le ft Upper Arm] Pulse Oximetry 95 95 96 Oxygen Delivery Me thod 04/24/24 22:45 04/24/24 23:01 04/24/24 23:15 Temperature Pulse Rate 76 91 78 Pulse Rate [Left P ulse Oximeter] Pulse Rate [Pulse Oximeter] Respiratory Rate Blood Pressure Blood Pressure [Le ft Arm] Blood Pressure [Le ft Upper Arm] Pulse Oximetry 96 97 95 Oxygen Delivery Me thod 04/24/24 23:30 04/24/24 23:32 04/24/24 23:48 Temperature 97.0 F L Pulse Rate 69 75 Pulse Rate [Left P ulse Oximeter] Pulse Rate [Pulse Oximeter] 74 Respiratory Rate 16 16 Blood Pressure 165/100 H Blood Pressure [Le ft Arm] 186/105 H Blood Pressure [Le ft Upper Arm] Pulse Oximetry 94 94 98 Oxygen Delivery Me thod Room Air 04/24/24 23:48 04/25/24 01:00 04/25/24 01:45 Temperature Pulse Rate 65 Pulse Rate [Left P ulse Oximeter] Pulse Rate [Pulse Oximeter] 77 Respiratory Rate 16 16 Blood Pressure Blood Pressure [Le ft Arm] 185/108 H Blood Pressure [Le ft Upper Arm] Pulse Oximetry 98 96 Oxygen Delivery Ne thod Room Air Room Air 04/25/24 02:00 04/25/24 03:00 04/25/24 05:00 Temperature 97.3 F L Pulse Rate Pulse Rate [Left P ulse Oximeter] Pulse Rate [Pulse Oximeter] 67 67 64 Respiratory Rate 16 16 Blood Pressure Blood Pressure [Le ft Arm] 190/104 H 183/97 H 191/102 H Blood Pressure [Le ft Upper Arm] Pulse Oximetry 97 97 Oxygen Delivery Ne thod Room Air Room Air 04/25/24 07:00 04/25/24 07:00 04/25/24 07:00 Temperature 97.6 F Pulse Rate 66 Pulse Rate [Left P ulse Oximeter] Pulse Rate [Pulse Oximeter] 69 69 Respiratory Rate 16 16 Blood Pressure Blood Pressure [Le ft Arm] 140/100 H Blood Pressure [Le ft Upper Arm] Pulse Oximetry 99 Oxygen Delivery Ne thod Room Air Labs Labs: Laboratory Results - last 24 hr 04/24/24 04/24/24 04/24/24 20:47 21:30 23:25 WBC 10.58 RBC 4.57 Hgb 12.9 Hct 40.8 MCV 89 MCH 28 MCHC 32 RDW Coeff of Jeannine 12.8 Plt Count 370 Neut % (Auto) 67.3 Lymph % (Auto) 17.5 L [place] % (Auto) 10.8 Eos % (Auto) 3.8 Baso % (Auto) 0.3 Neut # (Auto) 7.13 H Lymph # (Auto) 1.90 [place] # (Auto) 1.10 H Eos # (Auto) 0.40 Baso # (Auto) 0.03 Abs Immat Gran (auto) 0.03 Imm/Tot Granulo (auto) 0.3 INR 0.93 Sodium 135 Potassium 4.8 Chloride 103 Carbon Dioxide 27 Anion Gap 5 L BUN 30 Creatinine 1.7 H Estimated Creat Clear 25.12 Estimated GFR 30 Glucose 135 H Calcium 9.1 Magnesium Total Bilirubin AST ALT Alkaline Phosphatase Troponin I < 0.01 L < 0.01 L Total Protein Albumin Urine Color Yellow Urine Appearance Clear Urine pH 6.0 Ur Specific [place] 1.025 Urine Protein 2+ A Urine Glucose (UA) Negative Urine Ketones Negative Urine Blood Trace-intact A Urine Nitrite Negative Urine Bilirubin Negative Urine Urobilinogen 0.2 Ur Leukocyte Esterase 1+ A Urine RBC 0-2 Urine WBC 5-10 A Ur Squamous Epith Cells None Urine Bacteria Few A 04/25/24 05:57 WBC 10.94 RBC 4.82 Hgb 13.6 Hct 43.4 MCV 90 MCH 28 MCHC 31 L RDW Coeff of Jeannine Plt Count 376 Neut % (Auto) Lymph % (Auto) [place] % (Auto) Eos % (Auto) Baso % (Auto) Neut # (Auto) Lymph # (Auto) [place] # (Auto) Eos # (Auto) Baso # (Auto) Abs Immat Gran (auto) Imm/Tot Granulo (auto) INR Sodium 137 Potassium 5.3 H Chloride 104 Carbon Dioxide 29 Anion Gap 4 L BUN 26 Creatinine 1.6 H Estimated Creat Clear 26.69 Estimated GFR 33 Glucose 136 H Calcium 9.2 Magnesium 2.2 Total Bilirubin 0.4 AST 22 ALT 7 Alkaline Phosphatase 91 Troponin I Total Protein 6.5 Albumin 3.8 Urine Color Urine Appearance Urine pH Ur Specific [place] Urine Protein Urine Glucose (UA) Urine Ketones Urine Blood Urine Nitrite Urine Bilirubin Urine Urobilinogen Ur Leukocyte Esterase Urine RBC Urine WBC Ur Squamous Epith Cells Urine Bacteria
--- NOTE | 2024-04-25 10:53 | NUTR.NU ---
RDN with diet education related to heart healthy diet and diabetic diet orders. Patient admitted after witnessed fall, UTI positive. Past medical history includes coronary artery disease and diabetes mellitus type 2. Current weight 152 lb; height 5ft 6in; BMI 24.5 kg/m2. Patient reports her weight has been stable recently. RDN offered diet education related to heart healthy diet and diabetic diet, however patient declined stating she has followed these diets for a long time and has books at home. She declined educational materials. RDN offered patient Heart Healthy Menu, patient accepted. No questions or concerns from patient. RDN will continue to monitor and follow-up prn.
[2024-04-25] MEDS: FLUOXETINE HCL 20 MG CAPSULE 40 MG PO (11:44)
[2024-04-25] MEDS: buPROPion XL 150 MG TABLET PO (11:44)
[2024-04-25] MEDS: CARBIDOPA-LEVODOPA 25-100 TABLET 1 TAB PO ×2 (11:44→20:55)
[2024-04-25] MEDS: HYDRALAZINE HCL 20 MG/ML inj 10 MG IVP (12:13)
--- NOTE | 2024-04-25 14:20 | PC.SOCIAL ---
Addendum entered and electronically signed by RAHAT Wu 04/25/24 15:37: Discharge planning: workers compensation adjuster and social work internet cafe manager met with pt this afternoon and updated her about [facility] and how they are reviewing her referral for admission. Pt stated she would let her know the update when they spoke later on the phone. Social work to follow-up as needed. Original Note: Discharge planning: Physical Therapy and Occupational Therapy are recommending short-term rehab for the pt at discharge from the hospital. workers compensation adjuster spoke to the provider on duty and it sounds like the pt may be ready for discharge tomorrow(Thursday). Pt has a Medicare Advantage plan through [employer], which only contracts with certain [facility] facilities. workers compensation adjuster and social work internet cafe manager met with the pt's , Mumtaz, and explained the discharge recommendations and pt's insurance being contracted with certain SNF. workers compensation adjuster provided Mumtaz with the list of [facility] that contract with Medicare Advantage [facility]. Mumtaz would like this worker to check and see if there are openings for short-term rehab at [facility], who contracts with the pt's insurance. workers compensation adjuster checked with Arely in Admissions at [facility] and they have short-term rehab openings this week. workers compensation adjuster sent Arely a referral via secure email. Social work to follow-up as needed.
[2024-04-25] MEDS: TRAZODONE HCL 50 MG TABLET 100 MG PO (20:55)
[2024-04-25] MEDS: ATORVASTATIN CALCIUM 40 MG TABLET PO (20:55)
[2024-04-26] VITALS (7 sets, daily range): BP systolic 143–175; BP diastolic 87–110; PULSE 71–84; RESP 16; TEMP 36.4–36.6; O2SAT 95–97
[2024-04-26 06:21] LABS: Hematocrit 44.1 % (33.0-51.0); Hemoglobin* 13.8 gm/dL (12.0-16.0); Mean Corpuscular HGB Conc 31 gm/dL (32-36); Mean Corpuscular Hemoglobin 28 pg (26-34); Mean Corpuscular Volume 90 fL (80-100); Platelet Count* 397 K/uL (140-440); Red Blood Count 4.88 m/uL (4.00-5.20); White Blood Count* 9.73 K/uL (4.50-11.00)
[2024-04-26 06:24] LABS: Slide Review Reflex No
[2024-04-26 06:31] LABS: Chloride* 103 mmol/L (96-114); Potassium* 4.8 mmol/L (3.6-5.1); Sodium* 137 mmol/L (135-149)
[2024-04-26 06:34] LABS: Anion Gap 9 mEq/L (7-15); Blood Urea Nitrogen* 33 mg/dL (7-30); Calcium* 9.2 mg/dL (8.4-10.6); Carbon Dioxide* 25 mmol/L (20-32); Creatinine* 1.8 mg/dL (0.5-1.5); Est. Creatinine Clearance* 23.72; Estimated Glomerular Filt Rate 28 ml/min; Glucose* 121 mg/dL (60-115)
--- NOTE | 2024-04-26 07:29 | PC.NURSE ---
END OF SHIFT NOTE: PT PLEASANT AND COOPERATIVE WITH CARES. TELE= SINUS TACH. IV TO LEFT AC SL. PT SLEPT WELL THROUGHOUT NIGHT. UNEVENTFUL NIGHT.
[2024-04-26] MEDS: LIDOCAINE 5% PATCH 1 PATCH TRANSDERMA (08:30)
[2024-04-26] MEDS: CLOPIDOGREL 75 MG TABLET PO (08:32)
[2024-04-26] MEDS: buPROPion XL 150 MG TABLET PO (08:32)
[2024-04-26] MEDS: HEPARIN 5,000 UNIT/0.5 ML INJ 5000 UNIT SUBCUT ×2 (08:32→20:13)
[2024-04-26] MEDS: carvediloL 6.25 MG TABLET 3.125 MG PO (08:32)
[2024-04-26] MEDS: FLUOXETINE HCL 20 MG CAPSULE 40 MG PO (08:32)
[2024-04-26] MEDS: ACETAMINOPHEN 325 MG TABLET 650 MG PO ×3 (08:32→20:12)
[2024-04-26] MEDS: CARBIDOPA-LEVODOPA 25-100 TABLET 1 TAB PO ×2 (08:32→20:12)
[2024-04-26] MEDS: SODIUM CHLORIDE 0.9 % (FLUSH) 10 ML SYRINGE 5 ML IVF ×2 (08:33→20:12)
[2024-04-26] MEDS: cefTRIAXone 1 GM in 0.9 % SODIUM CHLORIDE Mini-bag 100 ML IVPB (08:33)
--- NOTE | 2024-04-26 10:24 | PM.IMPN1 ---
Progress Note: A&P Assessment and plan (1) Gait instability: Problem details: Acute on chronic recurrent. Recently diagnosed with Parkinson's in September 2023 Patient presented with a witnessed fall, mechanical one as described by her and she hit the back of her head, it seems the patient has a history of chronic gait instability and falls. Fall precautions PT / OT casting house worker consult for discharge/placement needs. Lives in own home with . [facility] assessing Status: Acute (2) Frequent falls: Problem details: Acute on chronic recurrent. Recently diagnosed with Parkinson's in September [address] head cervical spine CT and chest/abdomen/pelvis CT all were done at the ED and they were unremarkable except for already diagnosed pulmonary nodules.? At the ED they tried to walk the patient to evaluate her ability to go back home but the patient was unstable and it was decided to admit the patient for evaluation and management. PT/OT, health and social care teacher Status: Acute (3) Neck pain: Problem details: Lateral neck pain s/p fall, worse with rotation. CT C-spine without acute abnormalities Scheduled Tylenol, lidocaine patch, ice and/or heat as needed Status: Acute (4) Head injury: Problem details: S/p mechanical fall without reported loss of consciousness. CT head unremarkable for acute findings Status: Acute (5) Parkinsons disease: Problem details: Given this diagnosis in September 2023 and started on Sinemet Followed by [facility] neurology, last visit was with Dr. Reid 10/21/23 Status: Acute (6) Cognitive impairment: Problem details: Continue Aricept Followed by [facility] Neurology, no supporting evidence of Lewy body dementia during last evaluation in October Status: Acute (7) Hypertension: Problem details: Elevated since admission, asymptomatic, though suspect under-reporting pain s/p fall Resume home carvedilol. P.r.n. labetalol, hydralazine Improve pain management Continue to monitor 04/26: Labile. Vomited after single dose labetalol yesterday. Increase home carvedilol dose today. Would not want to rapidly decrease her pressure but goal for days to weeks. Continue to adjust meds as necessary. Suspect pressures will improve with better pain control as well. NOTE: BP during outpatient clinic visit on 02/25/24 was 174/84 and on 05/05/23 in ED was 162/107 Status: Chronic (8) CAD (coronary artery disease): Problem details: MD and stents in 2002. STEMI 2008. NSTEMI 11/26/21. Resume plavix, continue carvedilol Status: Chronic (9) DM (diabetes mellitus), type 2: Problem details: Being monitored, last A1c 5.9 nearly 2 years ago Repeat A1c ordered, pending Status: Chronic (10) CKD (chronic kidney disease): Problem details: Alcoholism Worker 1.8, baseline 1.6-1.7, monitoring. IV abx discontinued. Encourage increased daily fluid intake. Monitor u/o = 350ml out this morning. Consider US if worsening. Avoiding IVF currently given nationwide shortage Status: Acute (11) Hyperkalemia: Problem details: Potassium 5.3 on admission, baseline appears to be 4.4-5.3, improved to 4.8 Status: Acute (12) Pulmonary nodules: Problem details: CT shows numerous bilateral solid pulmonary nodules, to correlate with prior imaging. Outpatient follow up Status: Acute (13) Chest pain: Problem details: RESOLVED Troponin was negative in ED, flat on recheck EKG without ischemia Status: Resolved Plan Continue therapies, awaiting placement possibilities, [facility] assessing today. Time Spent With Patient Total time spent: Total time spent caring for the patient today was 45 minutes. This includes time spent for the visit reviewing the chart, time spent during the visit, time spent after the visit and documentation and planning in coordination of care. Subjective Date Seen: 04/26/24 Interval history: Patient is seen today sitting up in a chair. Denies headache or dizziness. Continues with lateral neck pain, R>L with rotation. Has a lidocaine patch and scheduled Tylenol for this. Denies chest pain or shortness of breath. Tolerating orals without nausea vomiting. Has had increased urinary frequency with decreased output over past 24 hours. UC growing mixed angela. Will DC IV antibiotics. Plan was initially to bladder scan however patient did have a 350 mL output later in the morning. Denies flank or abdominal pain. No dysuria. Exam Narrative: Exam Narrative: PHYSICAL EXAM General: Pleasant, NAD Neck: No C-spine tenderness or step-off, tenderness noted over trapezius, worse with rotation Cardiovascular: RRR, S1S2. No pitting edema Pulmonary: CTA bilaterally without rhonchi, rales, expiratory wheezes. No dyspnea on room air Neurological: Alert, answering questions appropriately this morning, cranial nerves intact, no focal findings Extremities: No gross joint deformity or swelling. AROMI. Neurovascularly intact Skin: Warm, dry. Const: Vital Signs, click to edit/add: Vital Signs - 24 hr 04/25/24 11:00 04/25/24 15:00 04/25/24 15:00 Temperature 97.6 F Pulse Rate 99 Pulse Rate [Pulse Oximeter] 61 94 Respiratory Rate 16 16 Blood Pressure [Le ft Arm] 180/99 H Pulse Oximetry 97 Oxygen Delivery Me thod Room Air 04/25/24 15:00 04/25/24 19:47 04/25/24 20:35 Temperature 97.6 F 98.2 F Pulse Rate 107 H Pulse Rate [Pulse Oximeter] 94 109 H Respiratory Rate 16 18 Blood Pressure [Le ft Arm] 127/89 142/86 H Pulse Oximetry 97 96 Oxygen Delivery Ia thod Room Air Room Air 04/25/24 20:35 04/26/24 04:55 04/26/24 07:00 Temperature 97.8 F Pulse Rate Pulse Rate [Pulse Oximeter] 109 H 71 74 Respiratory Rate 18 16 16 Blood Pressure [Le ft Arm] 155/90 H Pulse Oximetry 96 Oxygen Delivery Ia thod Room Air 04/26/24 07:00 Temperature 97.6 F Pulse Rate Pulse Rate [Pulse Oximeter] 74 Respiratory Rate 16 Blood Pressure [Le ft Arm] 175/110 H Pulse Oximetry 97 Oxygen Delivery Ia thod Room Air Labs Labs: Laboratory Results - last 24 hr 04/26/24 05:57 WBC 9.73 RBC 4.88 Hgb 13.8 Hct 44.1 MCV 90 MCH 28 MCHC 31 L Plt Count 397 Sodium 137 Potassium 4.8 Chloride 103 Carbon Dioxide 25 Anion Gap 9 BUN 33 H Creatinine 1.8 H Estimated Creat Clear 23.72 Estimated GFR 28 Glucose 121 H Calcium 9.2
[2024-04-26 12:27] LABS: Hemoglobin A1C* 6.2 % (0-5.6)
--- NOTE | 2024-04-26 14:05 | PC.SOCIAL ---
Discharge planning: baking factory worker heard back from Arely at [facility] who stated that the nursing staff had concerns about the pt's high blood pressure. baking factory worker sent updated notes to Arely for the nursing staff at [facility] to review. As of 2pm today this worker has not heard if [facility] will accept the pt or not. baking factory worker updated the pt and her today that [facility] is still reviewing the pt's referral. Social work to follow-up as needed.
[2024-04-26] MEDS: carvediloL 6.25 MG TABLET PO (20:11)
[2024-04-26] MEDS: DONEPEZIL 10 MG TABLET PO (20:11)
[2024-04-26] MEDS: ATORVASTATIN CALCIUM 40 MG TABLET PO (20:12)
[2024-04-26] MEDS: TRAZODONE HCL 50 MG TABLET 100 MG PO (20:12)
[2024-04-27 03:00] VITALS: BP 143/88; PULSE 82; RESP 16; TEMP 36.6; O2SAT 93
--- NOTE | 2024-04-27 05:02 | PC.NURSE ---
[id number] Pt slept well during night, up to BR with MIROSLAVA blankenship, 1A, tolerating activity well. denies N/V or pain, scheduled tylenol administered.
[2024-04-27 06:42] LABS: Hematocrit 40.9 % (33.0-51.0); Hemoglobin* 12.8 gm/dL (12.0-16.0); Mean Corpuscular HGB Conc 31 gm/dL (32-36); Mean Corpuscular Hemoglobin 28 pg (26-34); Mean Corpuscular Volume 90 fL (80-100); Platelet Count* 353 K/uL (140-440); Red Blood Count 4.53 m/uL (4.00-5.20)
[2024-04-27 06:43] LABS: Slide Review Reflex No
[2024-04-27 06:59] LABS: Chloride* 108 mmol/L (96-114); Potassium* 4.6 mmol/L (3.6-5.1); Sodium* 138 mmol/L (135-149)
[2024-04-27 07:00] VITALS: PULSE 69
[2024-04-27 07:02] LABS: Anion Gap 4 mEq/L (7-15); Blood Urea Nitrogen* 33 mg/dL (7-30); Calcium* 9.1 mg/dL (8.4-10.6); Carbon Dioxide* 26 mmol/L (20-32); Creatinine* 1.7 mg/dL (0.5-1.5); Est. Creatinine Clearance* 25.12; Estimated Glomerular Filt Rate 30 ml/min; Glucose* 117 mg/dL (60-115)
[2024-04-27 08:05] VITALS: BP 195/98; PULSE 76; RESP 18; TEMP 36.4; O2SAT 96
[2024-04-27] MEDS: LIDOCAINE 5% PATCH 1 PATCH TRANSDERMA (08:50)
[2024-04-27] MEDS: ACETAMINOPHEN 325 MG TABLET 650 MG PO (08:51)
[2024-04-27] MEDS: FLUOXETINE HCL 20 MG CAPSULE 40 MG PO (08:51)
[2024-04-27] MEDS: CARBIDOPA-LEVODOPA 25-100 TABLET 1 TAB PO (08:53)
[2024-04-27] MEDS: CLOPIDOGREL 75 MG TABLET PO (08:53)
[2024-04-27] MEDS: carvediloL 6.25 MG TABLET PO (08:54)
[2024-04-27] MEDS: SODIUM CHLORIDE 0.9 % (FLUSH) 10 ML SYRINGE 5 ML IVF (08:54)
[2024-04-27] MEDS: HEPARIN 5,000 UNIT/0.5 ML INJ 5000 UNIT SUBCUT (08:54)
[2024-04-27] MEDS: buPROPion XL 150 MG TABLET PO (08:55)
--- NOTE | 2024-04-27 12:19 | PC.SOCIAL ---
Discharge planning: Pt has been accepted to [facility] for short-term rehab with and admission for today. It will be a private room with a shared bathroom. Pt and her will accept the room and pt's can transport her there. tray line worker explained that the pt needed to be to [facility] by 2pm. Pt's can get the pt there by 2pm. Discharge orders were secure emailed to Arely at [facility]. Pre-admission screening was completed and the number was sent to Arely at [facility] via secure email. [phone]. Pt and her were very thankful for the assistance. Social work to follow-up as needed.
--- NOTE | 2024-04-27 14:31 | PC.NURSE ---
shift note: nurse to nurse given to Jane CHUNG at [address] [place] [address]. Belongings reviewed and sent with pt at dc along with doctor's order packet. IV dc'd intact.
--- NOTE | 2024-04-27 15:46 | PM.DS1 ---
DS: Providers Provider Date Seen: 04/27/24 Date of admission: 04/25/24 12:44 Primary care physician: Urmila Ivory MD Admitting Clinician: Sydnie Lenz MD Consults: 04/25/24 00:01 Consult to Occupational Therapy [CONS] Routine Comment: Reason(s) for OT Consult:: Evaluate and Treat Any Restrictions?:: No Restrictions Consult to Physical Therapy [CONS] Routine Comment: Reason(s) for PT Consult:: Evaluate and Treat Any Restrictions?:: No Restrictions Consult to Report Specialist [CONS] Routine Comment: Reason for Consult:: Discharge Planning Needs 04/25/24 02:15 Consult to Occupational Therapy [CONS] Routine Comment: Reason(s) for OT Consult:: Difficulty Managing ADLs Any Restrictions?:: No Restrictions Consult to Physical Therapy [CONS] Routine Comment: Reason(s) for PT Consult:: Recent Falls Any Restrictions?:: No Restrictions Attending Physician on discharge: Sydnie Lenz MD DS: Diagnosis Discharge Diagnosis (1) Gait instability: Status: Acute Problem details: Acute on chronic recurrent. Recently diagnosed with Parkinson's in September 2023 Patient presented with a witnessed fall, mechanical one as described by her and she hit the back of her head, it seems the patient has a history of chronic gait instability and falls. Fall precautions PT / OT mixed crop and livestock farm worker consult for discharge/placement needs. Lives in own home with . [employer] assessing (2) Neck pain: Status: Acute Problem details: Lateral neck pain s/p fall, worse with rotation. CT C-spine without acute abnormalities Scheduled Tylenol, lidocaine patch, ice and/or heat as needed (3) Cognitive impairment: Status: Acute Problem details: Continue Aricept Followed by [facility] Neurology, no supporting evidence of Lewy body dementia during last evaluation in October (4) Head injury: Status: Acute Problem details: S/p mechanical fall without reported loss of consciousness. CT head unremarkable for acute findings (5) Frequent falls: Status: Acute Problem details: Acute on chronic recurrent. Recently diagnosed with Parkinson's in September [address] head cervical spine CT and chest/abdomen/pelvis CT all were done at the ED and they were unremarkable except for already diagnosed pulmonary nodules.? At the ED they tried to walk the patient to evaluate her ability to go back home but the patient was unstable and it was decided to admit the patient for evaluation and management. PT/OT, social work associate (6) Parkinsons disease: Status: Acute Problem details: Given this diagnosis in September 2023 and started on Sinemet [facility], last visit was with Dr. Reid 10/21/23 (7) Hyperkalemia: Status: Acute Problem details: Potassium 5.3 on admission, baseline appears to be 4.4-5.3, improved to 4.8 (8) CKD (chronic kidney disease): Status: Acute Problem details: Edge [employer] 1.8, baseline 1.6-1.7, monitoring. IV abx discontinued. Encourage increased daily fluid intake. Monitor u/o = 350ml out this morning. Consider US if worsening. Avoiding IVF currently given nationwide shortage (9) Pulmonary nodules: Status: Acute Problem details: CT shows numerous bilateral solid pulmonary nodules, to correlate with prior imaging. Outpatient follow up (10) CAD (coronary artery disease): Status: Chronic Problem details: TN and stents in 2002. STEMI 2008. NSTEMI 11/26/21. Resume plavix, continue carvedilol (11) Hypertension: Status: Chronic Problem details: Elevated since admission, asymptomatic, though suspect under-reporting pain s/p fall Resume home carvedilol. P.r.n. labetalol, hydralazine Improve pain management Continue to monitor 04/26: Labile. Vomited after single dose labetalol yesterday. Increase home carvedilol dose today. Would not want to rapidly decrease her pressure but goal for days to weeks. Continue to adjust meds as necessary. Suspect pressures will improve with better pain control as well. NOTE: BP during outpatient clinic visit on 02/25/24 was 174/84 and on 05/05/23 in ED was 162/107 (12) DM (diabetes mellitus), type 2: Status: Chronic Problem details: Being monitored, last A1c 5.9 nearly 2 years ago Repeat A1c ordered, pending (13) Chest pain: Status: Resolved Problem details: RESOLVED Troponin was negative in ED, flat on recheck EKG without ischemia (14) UTI (urinary tract infection): Status: Ruled-out Problem details: RULED OUT. ABX DISCONTINUED +ve UA Increased frequency per her Cephalexin was given at the ED, will start ceftriaxone, UC pending DS: Summary Hospital Course Hospital Course: Brinda Harris is a 79 year old female w/ past medical history of dementia and recent Parkinson disease diagnosis, HTN, DM, coronary artery disease on Plavix, CKD, and Hx of ICH. Patient presented with a witnessed fall, mechanical one as described by her and she hit the back of her head, it seems the patient has a history of chronic gait instability and falls. On the day of admission, there was a concern about patient having a UTI but it has been ruled out. head cervical spine CT and chest/abdomen/pelvis CT all were done at the ED and they were unremarkable except for already diagnosed pulmonary nodules. ACS has been ruled out with an EKG and negative troponins. Patient had mild hyperkalemia on admission which resolved later on. Patient was complaining about a lateral neck pain s/p fall, worse with rotation and it improved with scheduled Tylenol and a lidocaine patch (patient was sent home on both). Blood pressure was noticed to be elevated since admission, we increased home carvedilol dose, patient will need to follow-up with her PCP to better manage her blood pressure. CT shows numerous bilateral solid pulmonary nodules, to correlate with prior imaging. Outpatient follow up was recommended. Patient's gait instability is causing her frequent falls, she was diagnosed recently with Parkinson disease (in September 2023) and started on Sinemet. Patient needs to follow up at [facility] neurology, last visit was with Dr. Reid 10/21/23. PT and OT services evaluated the patient, psychotherapist social worker was consulted and Pt was accepted by [facility] for short-term rehab. She will need to follow-up with her PCP and Neurology as an outpatient. Status at Discharge Functional status at discharge: wheelchair bound Overall status at discharge: patient is not back to baseline Time Spent with Patient Time attestation: Total time spent providing and/or coordinating discharge services: Time spent: Greater than 30 minutes Exam Narrative: Exam Narrative: PHYSICAL EXAM General: Pleasant, NAD Neck: No C-spine tenderness or step-off, tenderness noted over trapezius. Cardiovascular: RRR, S1S2. No pitting edema Pulmonary: CTA bilaterally without rhonchi, rales, expiratory wheezes. No dyspnea on room air Neurological: Alert, answering questions appropriately this morning, cranial nerves intact, no focal findings Extremities: No gross joint deformity or swelling. Skin: Warm, dry. Const: Vital Signs, click to edit/add: Vital Signs - 24 hr 04/26/24 19:00 04/26/24 23:00 04/26/24 23:10 Temperature 97.8 F Pulse Rate 75 Pulse Rate [Pulse Oximeter] 75 Respiratory Rate 16 16 Blood Pressure [Le ft Arm] 160/90 H Pulse Oximetry 95 Oxygen Delivery Me thod Room Air 04/27/24 03:00 04/27/24 07:00 04/27/24 08:05 Temperature 97.8 F 97.6 F Pulse Rate 69 Pulse Rate [Pulse Oximeter] 82 76 Respiratory Rate 16 18 Blood Pressure [Le ft Arm] 143/88 H 195/98 H Pulse Oximetry 93 96 Oxygen Delivery Me thod Room Air Room Air DS: Data Data Completed and Pending Labs on day of discharge: Labs from last 24 hours 04/27/24 05:59 WBC 7.70 RBC 4.53 Hgb 12.8 Hct 40.9 MCV 90 MCH 28 MCHC 31 L Plt Count 353 Sodium 138 Potassium 4.6 Chloride 108 Carbon Dioxide 26 Anion Gap 4 L BUN 33 H Creatinine 1.7 H Estimated Creat Clear 25.12 Estimated GFR 30 Glucose 117 H Calcium 9.[address]- Other: Radiologist's impression: CT scan - head: Radiologist's impression: Technique: Volumetric multidetector CT images of the head were obtained without the administration of low osmolar intravenous contrast. Comparison: CT head September 30, 2022 Findings: There is no intra-axial or extra-axial fluid collection. There is no mass effect or midline shift. There is age-related cortical atrophy with mild sulcal widening and ex vacuo dilatation of the lateral ventricles. There are chronic small vessel disease changes in the subcortical and periventricular white matter without lost robbins-white differentiation. The orbits and their contents are grossly within normal limits. There is a small posterior vertex scalp hematoma. The bony calvarium is otherwise grossly intact. The paranasal sinuses are clear. The mastoid air cells are well aerated. Impression: Small posterior vertex scalp hematoma. Otherwise, stable age-related and chronic small-vessel disease changes of the brain without acute intracranial abnormality. Please note that all CT scans at this facility use dose modulation, iterative reconstruction, and/or weight-based dosing when appropriate to reduce radiation dose to as low as reasonably achievable. Dictated by Edil Bledsoe MD @ 04/24/2024 8:35:[address] Chest/Ab/Pelvis: Radiologist's impression: CT chest/abdomen/pelvis with IV contrast, 74 mL Isovue 370 Comparison: CT chest report from 02/27/2024 Findings: Chest: No thyroid nodules. No thoracic lymphadenopathy. The heart is within normal limits in size. No pericardial effusion. Coronary artery calcifications. The thoracic aorta and pulmonary artery are within normal limits in caliber. There is no central pulmonary embolism. No focal airspace consolidation, pleural effusion, or pneumothorax. There are numerous bilateral solid pulmonary nodules, to correlate with prior imaging. Trace bibasilar linear atelectasis/scarring. Abdomen/pelvis: The liver is unremarkable in appearance. Postsurgical changes of cholecystectomy with expected biliary ductal dilatation. The spleen, pancreas, and left adrenal gland are unremarkable in appearance. The right adrenal gland is not visualized. Postsurgical changes of right nephrectomy. Left kidney is normal in size with no suspicious enhancing renal masses. Simple appearing exophytic left renal cyst measuring approximately 1.5 centimeters. No renal calculi or hydroureteronephrosis. The bladder is unremarkable in appearance. The uterus and bilateral adnexa are within normal limits in appearance. Small hiatal hernia. No evidence of bowel obstruction, inflammation, or acute traumatic injury. The appendix is not discretely visualized. Colonic diverticulosis without CT evidence of acute diverticulitis. No free fluid or free air. No abscess. No abdominopelvic lymphadenopathy. No abdominal aortic aneurysm. Moderate calcific atherosclerosis of the aortoiliac system and its branches. Soft tissue/musculoskeletal: No acute soft tissue abnormality. No acute fracture or malalignment. Remote compression deformity of the T12 vertebral body with slight retropulsed fracture fragment along the superior endplate. Multilevel degenerative changes seen throughout the spine. Degenerative changes of the bilateral sacroiliac and femoroacetabular joints. Impression: 1. No CT evidence of acute traumatic injury or an acute process involving the chest, abdomen, or pelvis. 2. Incidental findings as detailed above, to include multiple solid pulmonary nodules to correlate with prior imaging. Please note that all CT scans at this facility use dose modulation, iterative reconstruction, and/or weight-based dosing when appropriate to reduce radiation dose to as low as reasonably achievable. Dictated by Mina Walton MD @ 04/24/2024 10:51:[address]- Other: Radiologist's impression: TECHNIQUE: CT cervical spine without contrast. COMPARISON: CT cervical spine 01/23/2022.. CT chest 02/25/2024. FINDINGS: No acute fracture or suspicious osseous lesion. The cervical vertebral bodies maintain normal heights with preserved lordosis. No significant spondylolisthesis. Multilevel spondylosis and degenerative disc disease is noted with endplate osteophyte formation and multifocal disc space height loss. There is mild atlantoaxial degenerative change. No acute or suspicious soft tissue abnormality. Enlarged multinodular thyroid is similar to prior CT. Biapical pulmonary nodularity is also similar to prior. IMPRESSION: No acute cervical spine abnormality. No significant change compared to prior CT. Please note that all CT scans at this facility use dose modulation, iterative reconstruction, and/or weight-based dosing when appropriate to reduce radiation dose to as low as reasonably achievable. Discharge Plan Discharge Disposition: [facility] Date of Admission: 04/25/24 12:44 Attending Provider on Discharge: Jaja Enamorado Primary Care Provider: Urmila Ivory I Discharge Medications: New lidocaine 5 % Adhesive Patch,Medicated 1 patch transdermal Q24H Qty: 30 0RF Continued fluoxetine 40 mg capsule 40 mg PO QAM donepezil 10 mg tablet 10 mg PO DAILY carbidopa-levodopa 25-100 mg tablet 1 tab PO BID Rx Instructions: RECENTLY CHANGED TO BID atorvastatin 40 mg tablet 40 mg PO HS clopidogrel 75 mg tablet 75 mg PO QAM Patient Comments: TAKE 1 TABLET BY MOUTH IN THE MORNING trazodone 100 mg tablet 100 mg PO HS Patient Comments: TAKE 1 TABLET BY MOUTH AT BEDTIME nitroglycerin 0.4 mg tablet, sublingual 0.4 mg sublingual Q5M bupropion HCl 150 mg tablet extended release 24 hr 150 mg PO DAILY Patient Comments: TAKE 1 TABLET BY MOUTH IN THE MORNING acetaminophen 325 mg Tablet 650 mg PO Q6H PRNQty: 30 0RF Changed carvedilol 3.125 mg tablet 6.25 mg PO BID Qty: 120 0RF Discharge Orders: Discharge Order (Routine); Ordered 04/27/24 Ordered By: Jaja Enamorado Additional Instructions: Outpatient follow up with PCP and neurologist Activity Level: Activity as Tolerated and Up with assist Discharge Diet: Regular Follow Up Appointments: Urmila Ivory MD [Primary Care Provider] - (PCP follow-up in 1 - 2 weeks) Forms: [employer] Info Instructions Admit to: SNF Discharge Potential: Fair Length of Stay: <30 days Can use facility standing orders?: Yes Code Status: Full Code TEDs: N/A Rehab Potential: Fair Therapy: Physical Therapy and Occupational Therapy Therapy Orders: Evaluate and Treat Oxygen: No Urinary Catheter: No Orders are good >30 days: Yes
== END 2024-04-27 13:45 | DRG 57 ==
LOC: ED 21:37 → MEDSURG 23:34
PROVIDERS: Physician Assistant; Admitting Provider Student in an Organized Health Care Education/Training Program; Emergency Provider Emergency Medicine; PCP Family Medicine; Visit Provider Student in an Organized Health Care Education/Training Program
DX: G20.A1 Parkinson's disease without dyskinesia, without mention of fluctuations (principal); F02.A0 Dementia in other diseases classified elsewhere, mild, without behavioral disturbance, psychotic disturbance, mood disturbance, and anxiety; R26.89 Other abnormalities of gait and mobility; W18.30XA Fall on same level, unspecified, initial encounter; Z91.81 History of falling; R07.9 Chest pain, unspecified; M54.2 Cervicalgia; S09.90XA Unspecified injury of head, initial encounter; R35.0 Frequency of micturition; E87.5 Hyperkalemia; R91.8 Other nonspecific abnormal finding of lung field; I25.10 Atherosclerotic heart disease of native coronary artery without angina pectoris; I25.2 Old myocardial infarction; Z95.5 Presence of coronary angioplasty implant and graft; I12.9 Hypertensive chronic kidney disease with stage 1 through stage 4 chronic kidney disease, or unspecified chronic kidney disease; E11.22 Type 2 diabetes mellitus with diabetic chronic kidney disease; N18.32 Chronic kidney disease, stage 3b
CPT/HCPCS: 36415; 51798; 70450; 71260; 72125; 74177; 80048; 80053; 81001; 83036; 83735; 84484; 85025; 85027; 85610; 87086; 93005; 97112; 97116; 97162; 97165; 97530; 97535; 99284; 99285; G0378; A9270; J0360; J0696; J1644; J2405; J3010; J7030; Q9967

== ENCOUNTER 2024-05-21 21:06 | Outpatient (CLI) | payer MEDICARE, SELFPAY ==
--- OUTSIDE RECORDS SUMMARY | 2024-05-26 01:39 | XMS_ITS | Clinical Summary ---
Author Organization [facility] Address [address] [place] [address] Care Team Providers Care Lemon Grower Name Role Phone Unavailable Primary Care Provider Unavailabl e Source Comments Patient records contain information from all sites at [facility]. For routine questions regarding patient records, call [phone] during business hours, M-F 8:00 AM - 5:00 PM Central Time. Record requests for emergency care only can be directed to [phone] at any time.[facility] Allergies No known active allergies Medications * [...] 022 Degeneration Disc Lumbar 03/28/2020 Overview (10/01/2022): [facility] 03/2020 Other Manic Episodes 08/25/2018 Fatty Liver 06/29/2012 Overview (10/01/2022): Ultrasound 2008 Diabetes Mellitus Type 2 01/22/2012 Hypertension Essential Primary 08/09/2010 Overview (12/09/2016): Benign Essential Hypertension Atherosclerotic Heart Diseas e Of [place] Coronary Artery Without Angina Pectoris 08/22/2008 Overview (10/01/2022): ASA indefinitely, Plavix for minimum 1 year but preferably indefinitely s/p PCI in 2002, 2008, and 11/2021 -06/03/03 Acute [place], Angio: Single vessel CAD. Received REID to [facility] -08/21/08: STEMI, Angio: 95% mid dominant right coronary artery stenosis after a patent proximal right coronary artery stent. Moderate disease in small diagonal 1 and 2 branches. REID to mRCA. Echo prelim done at [place] 08/21/08 showing normal LV function Status post [...] on file Legal Sex Female 3:08 AM RIGGER UP Gender Identity Not on file Sexual Orientation [...] LAB BLOOD ADD-ON Final Result [facility] [address] [place] [address], [place] D[place] [facility][note 3] [address] [place] [address] from Last 3 Months or Most Recently Relevant to Health Maintenance Insurance MEDICARE Advance Directives For more information, please contact: [phone] * Full Code (Latest Code Status on File) Date Activated Date Inactivated Comments 10/01/2022 3:47 AM 10/07/2022 4:52 PM Question Answer Comments Full Code: Not Discussed Due to: Patient not available
--- OUTSIDE RECORDS SUMMARY | 2024-05-26 01:39 | XMS_ITS | Referral Summary ---
Author Organization [facility] Address [address] [place] [address] Care Team Providers Care Edge Sander Name Role Phone Unavailable Primary Care Provider Unavailabl e Source Comments Patient records contain information from all sites at [facility]. For routine questions regarding patient records, call [phone] during business hours, M-F 8:00 AM - 5:00 PM Central Time. Record requests for emergency care only can be directed to [phone] at any time.[facility] Allergies No known active allergies Medications [...] 022 Degeneration Disc Lumbar 03/28/2020 Overview (10/01/2022): [facility] 03/2020 Other Manic Episodes 08/25/2018 Fatty Liver 06/29/2012 Overview (10/01/2022): Ultrasound 2008 Diabetes Mellitus Type 2 01/22/2012 Hypertension Essential Primary 08/09/2010 Overview (12/09/2016): Benign Essential Hypertension Atherosclerotic Heart Diseas e Of [place] Coronary Artery Without Angina Pectoris 08/22/2008 Overview (10/01/2022): ASA indefinitely, Plavix for minimum 1 year but preferably indefinitely s/p PCI in 2002, 2008, and 11/2021 -06/03/03 Acute [place], Angio: Single vessel CAD. Received REID to [facility] -08/21/08: STEMI, Angio: 95% mid dominant right coronary artery stenosis after a patent proximal right coronary artery stent. Moderate disease in small diagonal 1 and 2 branches. REID to mRCA. 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 LAB BLOOD ADD-ON Final Result [facility] [address] [place] [address], [place] D[place] [facility] [address] [place] [address] from Last 3 Months or Most Recently Relevant to Health Maintenance Insurance MEDICARE Advance Directives For more information, please contact: [phone] * Full Code (Latest Code Status on File) Date Activated Date Inactivated Comments 10/01/2022 3:47 AM 10/07/2022 4:52 PM Question Answer Comments Full Code: Not Discussed Due to: Patient not available
--- OUTSIDE RECORDS SUMMARY | 2024-05-26 01:39 | XMS_ITS ---
Author Organization [facility] Address [address] [place] [address] Care Team Providers Care Clerical Support Specialist Name Role Phone Unavailable Unavailable Unavailable Surgery Details Not on file Complications Check Surgery Details section. Procedure Estimated Blood Loss Check Surgery Details section. Procedure Findings Check Surgery Details section. Procedure Specimens Taken Check Surgery Details section.
--- OUTSIDE RECORDS SUMMARY | 2024-05-26 01:39 | XMS_ITS | Clinical Summary ---
Author Organization [facility] Address [place], [place] [address] Care Team Providers Care Hot Punch Press Operator Name Role Phone Urmila Ivory MD Primary [...] oral route once daily with food 0 9 Active lactobacillus combination no.8 3 billion cell cap Take 1 Capsule by mouth once daily. 0 3 Active levOCARNitine tartrate 250 mg capIndications:Park insonian features Take 1 Capsule by mouth once daily. 90 Capsule 3 3 Active donepeziL (ARICEPT) 10 mg tabletIndications:M matt loss Take 1 Tablet (10 mg) by mouth at bedtime. 90 Tablet 3 4 Active polyethylene glycol (Miralax) 17 g per packet packet Mix 1 Packet in liquid then take by mouth. Active buPROPion (WELLBUTRIN XL) 150 mg Extended-Release tabletIndications:S evere episode of recurrent major depressive disorder, without psychotic features (HC) Take 1 Tablet (150 mg) by mouth once daily. 100 Tablet 3 4 Active carvediloL (COREG) 3.125 mg tabletIndications:S /P drug eluting coronary stent placement Take 1 Tablet (3.125 mg) by mouth two times daily with meals. 200 Tablet 3 4 Active FLUoxetine (PROZAC) 40 mg capsuleIndications: Severe episode of recurrent major depressive disorder, without psychotic features (HC) Take 1 Capsule (40 mg) by mouth once daily in the morning. 100 Capsule 3 4 Active traZODone (DESYREL) 100 mg tabletIndications:S evere episode of recurrent major depressive disorder, without psychotic features (HC) Take 1 Tablet (100 mg) by mouth at bedtime. 100 Tablet 3 4 Active aspirin (ECOTRIN) 81 mg enteric coated tabletIndications:S /P drug eluting coronary stent placement Take 1 Tablet (81 mg) by mouth once daily with a meal. 100 Tablet 3 4 Active carbidopa-levodopa, 25-100 mg, (SINEMET 25-100) 25-100 mg tabletIndications:P arkinsonian features Take 1 Tablet by mouth three times daily. 90 Tablet 3 4 Active FLUoxetine (PROZAC) 40 mg capsuleIndications: Severe episode of recurrent major depressive disorder, without psychotic features (HC) Take 1 Capsule (40 mg) by mouth every morning. 100 Capsule 3 3 05/23/20 24 Discontinued(Reo rder (E-cancel not sent)) traZODone (DESYREL) 100 mg tabletIndications:S evere episode of recurrent major depressive disorder, without psychotic features (HC) TAKE 1 TABLET BY MOUTH EVERY NIGHT AT BEDTIME. 90 Tablet 4 05/23/20 24 Discontinued(Reo rder (E-cancel not sent)) clopidogreL (PLAVIX) 75 mg tabletIndications:S /P drug eluting coronary stent placement,Arteriosc lerotic cardiovascular disease (ASCVD) TAKE 1 TABLET BY MOUTH EVERY AM 30 Tablet 4 05/12/20 24 Discontinued buPROPion (WELLBUTRIN XL) 150 mg Extended-Release tabletIndications:S evere episode of recurrent major depressive disorder, without psychotic features (HC) TAKE 1 TABLET BY MOUTH DAILY 30 Tablet 4 05/12/20 24 Discontinued carbidopa-levodopa, 25-100 mg, (SINEMET 25-100) 25-100 mg tabletIndications:P arkinsonian features TAKE 1 TABLET BY MOUTH THREE TIMES DAILY. 90 Tablet 4 05/24/20 24 Discontinued(Reo rder (E-cancel not sent)) carvediloL (COREG) 3.125 mg tabletIndications:S /P drug eluting coronary stent placement TAKE 1 TABLET BY MOUTH TWICE DAILY WITH MEALS 60 Tablet 4 05/23/20 24 Discontinued(Reo rder (E-cancel not sent)) clopidogreL (PLAVIX) 75 mg tabletIndications:S /P drug eluting coronary stent placement,Arteriosc lerotic cardiovascular disease (ASCVD) TAKE 1 TABLET BY MOUTH EVERY MORNING 30 Tablet 4 05/23/20 24 Discontinued(*Me d complete/Regimen complete/Level of care change) buPROPion (WELLBUTRIN XL) 150 mg Extended-Release tabletIndications:S evere episode of recurrent major depressive disorder, without psychotic features (HC) TAKE 1 TABLET BY MOUTH DAILY 30 Tablet 4 05/23/20 24 Discontinued(Reo rder (E-cancel not sent)) Active Problems Problem Noted Date Diagnosed Date Right wrist fracture 12/05/2022 12/05/2022 Thyroid nodule 10/01/2022 12/05/2022 Chronic systolic congestive heart failure 2022 Essential (hemorrhagic) thrombocythemia 02/04/20 Stage 4 chronic kidney disease 02/03/2022 S/P drug eluting coronary stent placement 2021 Presence of coronary angioplasty implant and gra ft 12/13/2021 12/05/2022 Syncope 12/10/2021 Lung nodules 11/27/2021 Overview (12/05/2021): Noted on CT from [place] 11/23/21 - follow up in 3 month advised NSTEMI (non-ST elevated myocardial infarction) 0 11/26/2021 Sepsis due to Escherichia coli 11/26/2021 DDD (degenerative disc disease), lumbar 03/28/20 Overview (03/28/2020): Xray [facility] 03/2020 Hyperkalemia 06/22/2019 Persistent proteinuria 11/25/2018 Hypomanic [...] in 2002, 2008, and 11/2021 -06/03/03 Acute [place], Angio: Single vessel CAD. [facility]I, Angio: 95% mid dominant right coronary artery stenosis after a patent proximal right coronary artery stent. Moderate disease in small diagonal 1 and 2 branches. REID to mRCA. 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 [facility] facilities. ) 05/23/2024 Telephone [facility] [address] [address] Wild Reid MD Referral (Neurology) 05/23/2024 Travel 05/19/2024 Refill [facility] [address] [place] [address] Urmila Ivory MD Refill Request (Carbidopa-levodopa (25-100 Mg)) 05/09/2024 Lab Requisition [facility] [phone] Magali Berger NP 05/09/2024 Telephone [facility] [address] [place] [address] Urmila Ivory MD UPDATE 05/08/2024 Refill [facility] [address] [place] [address] Urmila Ivory MD Refill Request (Clopidogrel, Bupropion) 04/25/2024 Refill [facility] [address] [place] [address] Urmila Ivory MD Refill Request (Carvedilol) 04/24/2024 Orders Only [facility] Scanner 1 scan: (1-Ord) [place], CT CHEST ABDOMEN PELV W CON, 04/24/2024 04/24/2024 Orders Only [facility] Scanner 1 scan: (1-Ord) [place], HEAD/BRAIN WO CON, 04/24/2024 04/24/2024 Orders Only [facility] Scanner 1 scan: (1-Ord) [place], CERVICAL SPINE WO CONTRAST, 04/24/2024 04/21/2024 Refill [facility] [address] [place] [address] Urmila Ivory MD Refill Request (Carvedilol) 04/20/2024 Refill [facility] [address] [place] [address] Urmila Ivory MD Refill Request (Carbidopa-levodopa (25-100 Mg)) 04/18/2024 Telephone [facility] [address] [place] [address] Urmila Ivory MD Appointment 04/15/2024 Telephone [facility] [address] [place] [address] Urmila Ivory MD Questions (REGARDING CARE ) 04/14/2024 Refill [facility] [address] [place] [address] Urmila Ivory MD Refill Request (Carbidopa-levodopa (25-100 Mg)) 04/01/2024 Telephone [facility] [address] [place] [address] Urmila Ivory MD Form 03/31/2024 Refill [facility] [address] [place] [address] Urmila Ivory MD Refill Request (Bupropion) 03/28/2024 Refill [facility] [address] [place] [address] Urmila Ivory MD Refill Request (Clopidogrel) 03/24/2024 Refill [facility] [address] [place] [address] Urmila Ivory MD Refill Request (Clopidogrel) 02/25/2024 1:30 PM CDT Office Visit [facility] [address] [place] [address] Brandon Meier MD Follow Up 02/25/2024 12:15 PM CDT - 02/25/2024 11:59 PM CDT Hospital Encounter [facility] [address] [place] [address] Brandon Meier MD Lung nodule 02/25/2024 Travel 02/25/2024 Refill [facility] [address] [place] [address] Urmila Ivory MD Refill Request (Trazodone) from [...] Name Comments Cancer-breast Daughter 2 diagnosed in er late 's Other Father Stroke Maternal Grandfather Stroke Maternal [...] of Communication with Friends and Fami ly 0 12/02/2022 Financial Resource Strain Answer Date R ecorded [...] Sign Reading Time Taken Comments Blood Pressure 157/88 05/23/2024 2:32 PM KILN PLACER Pulse 66 05/23/2024 2:32 PM KILN PLACER Temperature 36.2 ??C (97.2 ??F) 02/25/2024 1:32 PM CD T Respiratory Rate 16 02/25/2024 1:32 PM CDT Oxygen Saturation 96% 02/25/2024 1:32 PM CDT Inhaled Oxygen Concentration - - Weight 65.3 kg (144 lb) 05/23/2024 2:32 PM KILN PLACER Height 170.2 cm (5' 7) 02/25/2024 1:32 PM CDT Body Mass Index 22.55 02/25/2024 1:32 PM CDT Plan of Treatment Upcoming Encounters Date Type Department Care Team (Late st Contact Info) Description 08/17/2024 1:40 PM KILN PLACER Office Visit [facility] [address] [place] [address] Wild Reid MD [address] [place] [address] Health Maintenance Due Date Last Done Comments [...] Procedure Name Priority Date/Time Associated Diagnosis Comments HEMOGLOBIN A1C Routine 05/23/2024 3:35 PM KILN PLACER Controlled type 2 diabetes mellitus with diabetic nephropathy, without long-term current use of insulin (HC) LIPID PANEL W REFLEX MEASURED LDL Routine 05/23/2024 3:35 PM KILN PLACER S/P drug eluting coronary stent placement Arteriosclerotic cardiovascular disease (ASCVD) CBC WITH AUTO DIFFERENTIAL Routine 05/10/2024 9:00 [...] 1 SITE PERIPHERAL Routine 06/05/2021 2:24 PM KILN PLACER Menopausal state Unspecified menopausal and perimenopausal disorder ACUTE HEPATITIS PANEL Routine 07/05/2008 3:19 PM KILN PLACER Nausea Alone from Last 3 Months or Most Recently Relevant to Health Maintenance Results * (ABNORMAL) HEMOGLOBIN A1C (05/23/2024 3:35 PM KILN PLACER) HEMOGLOBIN A1C 6.6(H) <5.7 % of total Hgb [facility] Comment: For someone without known diabetes, a hemoglobin A1c value of 6.5% or greater indicates that they may have diabetes and this should be confirmed with a follow-up test. For someone with known diabetes, a value <7% indicates that their diabetes is well controlled and a value greater than or equal to 7% indicates suboptimal control. A1c targets should be individualized based on duration of diabetes, age, comorbid conditions, and other considerations. Currently, no consensus exists regarding use of hemoglobin A1c for diagnosis of diabetes for children. ?? Blood BLOOD SPECIMEN / Unknown 05/23/2024 3:35 PM KILN PLACER 05/23/2024 3:38 PM KILN PLACER Narrative [facility] - 05/24/2024 3:37 AM KILN PLACER FASTING:NO FASTING: NO Urmila Ivory MD CHEMISTRY Performing Organization Address [facility] Co de Phone Number [facility] [address] [place] [address], [facility] [address] [place] [address] * LIPID PANEL W REFLEX MEASURED LDL (05/23/2024 3:35 PM KILN PLACER) CHOLESTEROL, TOTAL 135 <200 mg/dL [facility] HDL CHOLESTEROL 57 > OR = 50 mg/dL [facility] TRIGLYCERIDES 147 <150 mg/dL [facility] LDL-CHOLESTEROL 55 mg/dL (calc) [facility] Comment: Reference range: <100 Desirable range <100 mg/dL for primary prevention; ?? <70 mg/dL for patients with CHD or diabetic patients with > or = 2 CHD risk factors. LDL-C is now calculated using the Jovanny-Patricia calculation, which is a validated novel method providing better accuracy than the Friedewald equation in the estimation of LDL-C. Jovanny SS et al. NOAH. 2013;310(19): 2965-7168 (http://education.[employer]/faq/GEY389) CHOL/HDLC RATIO 2.4 <5.0 (calc) [facility] NON HDL CHOLESTEROL 78 <130 mg/dL (calc) [facility] Comment: For patients with diabetes plus 1 major ASCVD risk factor, treating to a non-HDL-C goal of <100 mg/dL (LDL-C of <70 mg/dL) is considered a therapeutic option. Blood BLOOD SPECIMEN / Unknown 05/23/2024 3:35 PM KILN PLACER 05/23/2024 3:38 PM KILN PLACER Narrative [facility] - 05/24/2024 6:28 AM KILN PLACER FASTING:NO FASTING: NO Urmila Ivory MD CHEMISTRY Performing Organization Address City/[facility]/ZIP Co de Phone Number [facility] [facility] [address] [place] [address], [place] [phone] [address] * (ABNORMAL) CBC WITH AUTO DIFFERENTIAL (05/10/2024 9:00 AM [facility]) WHITE BLOOD COUNT 9.5 4.5 - 11.0 thou/cu mm 05/10/2024 9:51 AM [facility] RED BLOOD COUNT 4.58 4.00 - 5.20 mil/cu mm 05/10/2024 9:51 AM [facility] HEMOGLOBIN 13.3 12.0 - 16.0 g/dL 05/10/2024 9:51 AM [facility] HEMATOCRIT 41.8 33.0 - 51.0 % 05/10/2024 9:51 AM [facility] MCV 91 80 - 100 fL 05/10/2024 9:51 AM [facility] MCH 29.0 26.0 - 34.0 pg 05/10/2024 9:51 AM [facility] MCHC 31.8(L) 32.0 - 36.0 g/dL 05/10/2024 9:51 AM [facility] RDW 13.5 11.5 - 15.5 % 05/10/2024 9:51 AM [facility] PLATELET COUNT 442(H) 140 - 440 thou/cu mm 05/10/2024 9:51 AM [facility] MPV 8.2 6.5 - 11.0 fL 05/10/2024 9:51 AM [facility] % NEUT 71.9 % 05/10/2024 9:51 AM [facility] % LYMPH 15.9 % 05/10/2024 9:51 AM [facility] % MONO 6.9 % 05/10/2024 9:51 AM [facility] % EOS 5.1 % 05/10/2024 9:51 AM [facility] % BASO 0.2 % 05/10/2024 9:51 AM [facility] ABSOLUTE NEUTROPHILS 6.8 1.7 - 7.0 thou/cu mm 05/10/2024 9:51 AM T [facility] ABSOLUTE LYMPHOCYTES 1.5 0.9 - 2.9 thou/cu mm 05/10/2024 9:51 AM T [facility] ABSOLUTE MONOCYTES 0.7 <0.9 thou/cu mm 05/10/2024 9:51 AM T [facility] ABSOLUTE EOSINOPHILS 0.5(H) <0.5 thou/cu mm 05/10/2024 9:51 AM [facility] ABSOLUTE BASOPHILS 0.0 <0.3 thou/cu mm 05/10/2024 9:51 AM [facility] Blood BLOOD SPECIMEN / Unknown Venipuncture / Unknown 05/10/2024 9:00 AM CDT 05/10/2024 9:42 AM CDT Magali Berger NP HEMATOLOGY Performing Organization Address City/State/[facility] Co de Phone Number [facility] [address] [place] [address] * (ABNORMAL) BASIC METABOLIC PANEL (05/10/2024 9:00 AM CDT) SODIUM 140 136 - 145 mmol/L 05/10/2024 10:13 AM [facility] POTASSIUM 4.3 3.5 - 5.1 mmol/L 05/10/2024 10:13 AM [facility] CHLORIDE 102 98 - 107 mmol/L 05/10/2024 10:13 AM [facility] CO2,TOTAL 29 22 - 29 mmol/L 05/10/2024 10:13 AM [facility] ANION GAP 9 5 - 18 05/10/2024 10:13 AM [facility] GLUCOSE 227(H) 70 - 99 mg/dL 05/10/2024 10:13 AM [facility] CALCIUM 9.3 8.8 - 10.2 mg/dL 05/10/2024 10:13 AM [facility] BUN 31(H) 8 - 23 mg/dL 05/10/2024 10:13 AM CDT [facility] CREATININE 1.90(H) 0.50 - 0.90 mg/dL 05/10/2024 10:13 AM T [facility] BUN/CREAT RATIO 16 10 - 20 4 10:13 AM CDT [facility] eGFR 27(L) >90 mL/min/1.7 3m2 05/10/2024 10:13 AM T [facility] Comment:As of 2021, eG FR is calculated by the CKD-EPI creatinine equation without race adjustment. ??eGFR can be influenced by muscle mass, exercise, and diet. ??The reported eGFR is an estimation only and is only applicable if the renal function is stable. Blood BLOOD SPECIMEN / Unknown Venipuncture / Unknown 05/10/2024 9:00 AM CDT 05/10/2024 9:42 AM CDT Magali Berger NP CHEMISTRY [facility] [address] [place], [place] [id number] * SCAN-CT INTERPRETATION (04/24/2024 12:00 AM CDT) [...] For Patients: As a result of the Cures Act, medical imaging exams and procedure [...] AND 1 SITE PERIPHERAL (06/05/2021 2:24 PM KILN PLACER) Anatomical Region Laterality Modality LUMBAR SPINE Other Impressions 06/07/2021 2:35 PM KILN PLACER Normal bone density. RECOMMENDATIONS: The National Osteoporosis [...] Maisha Bowman PA-C Narrative 06/07/2021 2:35 PM KILN PLACER For Patients: Results are automatically released to your [facility] account once available, in compliance with federal regulations. This means that you may see your results before your provider has had a chance to review them. Please allow 2-3 business days for your provider to comment on the results. XR DXA Bone Mineral Density (BMD) EXAM LOCATION: [address] [address] PATIENT NAME: Brinda Harris DATE OF : [...] two scanners are made by the same quality assurance assistant. PROCEDURE: Dual-energy x-ray absorptiometry performed with routine [...] Z-Score: + 2.1 Change from prior in 2014: ??Decrease 1.9%. RESULT FOREARM Left Forearm distal radius BMD: 0.862 g/cm2 T-Score: - 0.2 Z-Score: + 2.2 Change from prior: ??None WHO criteria: Normal: T-score at or above -1 SD Osteopenia: T-score between -1.1 and -2.4 SD Osteoporosis: T-score at or below -2.5 SD Kristen Pittman MD DEXA * ACUTE HEPATITIS PANEL (07/05/2008 3:19 PM KILN PLACER) HBSAG Non-reacti ve [facility] IGM ANTI HBC Non-reacti ve [facility] IGM ANTI HAV Non-reacti ve [facility] ANTI HCV Non-reacti ve [facility] Blood specimen (specimen) BLOOD SPECIMEN / Unknown 07/05/2008 3:19 PM KILN PLACER 07/05/2008 2:00 PM KILN PLACER Carmel Beebe DO SEND OUTS [facility] INTERNAL ZIP [address] [place] [phone] from Last 3 Months or Most Recently [...] 1:42 AM 07/16/2008 5:25 PM Care Teams Hot Punch Press Operator Relationship Specialty Start Date End Date Urmila Ivory MD [address] [place] [address] PCP - General Family Practice 12/01/22
== END 2024-05-21 21:07 | disposition home or self-care (01) ==
LOC: AMB 05-26 01:36
PROVIDERS: PCP Family Medicine; Visit Provider Family Medicine
DX: R11.10 Vomiting, unspecified (principal)
CPT/HCPCS: A0425; A0427

== ENCOUNTER 2024-05-21 21:33 | Emergency (ER) | payer MEDICARE, SELFPAY ==
[2024-05-21 21:40] VITALS: BP 121/84; PULSE 70; RESP 16; TEMP 36.9; O2SAT 97; BMI 23.5
--- NOTE | 2024-05-21 22:05 | ED.GENADULT ---
HPI - General Adult General Chief complaint: Nausea/Vomiting Stated complaint: vomiting Time Seen by Provider: 05/21/24 21:39 History of Present Illness HPI narrative: comes in with nausea and vomiting for a week. denies any abd pain with palpation. denies constip /diarr. was at [facility] for a fall, got out on the . EMS 20g R FA, no meds given. blood sugar 224, denies diabetes . 79-year-old woman presenting to the emergency department with concern of nausea with vomiting over the last 5 days or so. Is not complaining of any abdominal pain. No diarrhea. Was recently discharged from rehab after a fall. Underlying history of Parkinson's and who accompanies her here notes how she is more prone to falls. Also that memory has been worsening. No fever. No shortness of breath or cough. Related Data Home Medications ?Medication ?Instructions ?Recorded ?Confirmed atorvastatin 40 mg tablet 40 mg PO HS 01/23/22 04/25/24 bupropion HCl 150 mg 24 hr tablet, 150 mg PO DAILY 01/23/22 04/24/24 extended release clopidogrel 75 mg tablet 75 mg PO QAM 01/23/22 04/24/24 nitroglycerin 0.4 mg sublingual 0.4 mg sublingual Q5M 01/23/22 04/25/24 tablet trazodone 100 mg tablet 100 mg PO HS 01/23/22 04/24/24 carbidopa 25 mg-levodopa 100 mg 1 tab PO BID 04/24/24 04/25/24 tablet donepezil 10 mg tablet 10 mg PO DAILY 04/24/24 04/24/24 fluoxetine 40 mg capsule 40 mg PO QAM 04/24/24 04/24/24 Previous Rx's ?Medication ?Instructions ?Recorded acetaminophen 325 mg tablet 650 mg (2 x 325 mg) PO Q6H PRN #30 01/24/22 tabs carvedilol 3.125 mg tablet 6.25 mg (2 x 3.125 mg) PO BID #120 04/27/24 tabs lidocaine 5 % topical patch 1 patch transdermal Q24H #30 ea 04/27/24 Allergies Allergy/AdvReac Type Severity Reaction Status Date / Time bumetanide Allergy Mild Nausea Verified 04/24/24 22:16 codeine Allergy Mild Nausea Verified 04/24/24 22:16 dextromethorphan Allergy Mild Nausea Verified 04/24/24 22:16 lisinopril Allergy Mild Verified 04/24/24 22:16 NSAIDS (Non-Steroidal Allergy Mild unsure Verified 04/24/24 22:16 Anti-Inflamma pentazocine Allergy Mild Unsure Verified 04/24/24 22:16 Tussinex Allergy Mild Nausea Uncoded 04/24/24 22:16 Review of Systems Status of ROS: Reports: 6 or more systems reviewed and unremarkable except as noted in History and below [facility] Medical History Head injury ?S09.90XA - Unspecified injury of head, initial encounter (ICD-10) Cognitive impairment ?R41.89 - Other symptoms and signs involving cognitive functions and awareness (ICD-10) Parkinsons disease ?G20.A1 - Parkinson's disease without dyskinesia, without mention of fluctuations (ICD-10) CKD (chronic kidney disease) ?N18.9 - Chronic kidney disease, unspecified (ICD-10) Gait instability ?R26.81 - Unsteadiness on feet (ICD-10) Pulmonary nodules ?R91.8 - Other nonspecific abnormal finding of lung field (ICD-10) History of Clostridioides difficile infection (06/2009) ?Z86.19 - Personal history of other infectious and parasitic diseases (ICD-10) Closed fracture of coccyx (01/23/22) ?S32.2XXA - Fracture of coccyx, initial encounter for closed fracture (ICD-10) Surgical History History of section ?Z98.891 - History of uterine scar from previous surgery (ICD-10) History of tonsillectomy ?Z90.89 - Acquired absence of other organs (ICD-10) History of cholecystectomy ?Z90.49 - Acquired absence of other specified parts of digestive tract (ICD-10) History of heart artery stent ?Z95.5 - Presence of coronary angioplasty implant and graft (ICD-10) History of right nephrectomy ?Z90.5 - Acquired absence of kidney (ICD-10) Family History Mother Heart disease Diabetes Sister Diabetes Father Adrenoleukodystrophy Daughter Breast cancer, Onset Age: 40 Social History What is your current living situation?: I presently have a place to live Problems where you live: no known problems Problems where you live details: NO KNOWN ISSUES In the past 12 months, utilities in danger of being shut off: no In past 12 months, lack of transportation kept you from medical appts, meetings, work, or getting things needed for daily living: no In the past 12 mos, have been you worried that your food would run out before you had money to buy more?: never true In the past 12 mos, the food you bought just didn't last and you didn't have money to buy more?: never true Highest level of school completed/degree received: Bachelor's degree Smoking Status: Never smoker Do you use any of these nicotine containing products: None Second hand tobacco smoke exposure: No How often do you have a drink containing alcohol: 2-4 times a month Alcohol type: wine How many standard drinks containing alcohol do you have on a typical day: 1 or 2 How often do you have six or more drinks on one occasion: Never AUDIT-C Alcohol total score: 2 Non-prescribed substance use: denies use Caffeine: No How often does anyone, including family, friends and others, physically hurt you: never How often does anyone, including family, friends and others, insult or talk down to you: never How often does anyone, including family, friends and others, threaten you with harm: never How often does anyone, including family, friends and others, scream or curse at you: never service: No Exam Narrative: Exam Narrative: Blunted affect (smiles more in later conversation) and limited answer to questions basically yes or no. Breathing easily. Lungs are clear. Oropharynx is little dry. Non erythematous. Neck is supple without lymphadenopathy. Heart in regular rate and rhythm. Distant. Abdomen is soft and generally mildly tender with normal bowel sounds. Lower extremities are without edema. Well-perfused. No rashes other than some bruising on her forearms. Const: Vital Signs, click to edit/add: Vital Signs - 24 hr 05/21/24 21:40 05/21/24 23:00 05/22/24 01:00 CDT Temperature 98.5 F Pulse Rate [Pulse Oximeter] 70 67 Respiratory Rate 16 16 Blood Pressure [Le ft Upper Arm] 121/84 120/76 Pulse Oximetry 97 98 98 Oxygen Delivery Me thod Room Air Room Air 05/22/24 01:59 DERMATOLOGY SALES REPRESENTATIVE 05/22/24 02:04 Temperature 98.5 F 98.5 F Pulse Rate [Pulse Oximeter] 74 74 Respiratory Rate 16 16 Blood Pressure [Le ft Upper Arm] 118/74 118/74 Pulse Oximetry 98 Oxygen Delivery Me thod Room Air Documenting provider has reviewed patient's vital signs: yes Course Vital Signs Vital signs: Initial Vital Signs Temperature 98.5 F 05/21/24 21:40 Temperature Source Temporal Artery Scan 05/21/24 21:40 Pulse Rate 70 05/21/24 21:40 Respiratory Rate 16 05/21/24 21:40 Blood Pressure 121/84 05/21/24 21:40 Blood Pressure Mean 96 05/21/24 21:40 Blood Pressure Position Sitting 05/21/24 21:40 Pulse Oximetry 97 05/21/24 21:40 Oxygen Delivery Method Room Air 05/21/24 21:40 Vital Signs Temperature 98.5 F 05/21/24 21:40 Pulse Rate 70 05/21/24 21:40 Respiratory Rate 16 05/21/24 21:40 Blood Pressure 121/84 05/21/24 21:40 Pulse Oximetry 97 05/21/24 21:40 Oxygen Delivery Method Room Air 05/21/24 21:40 Temperature 98.5 F 05/22/24 02:04 Pulse Rate 74 05/22/24 02:04 Respiratory Rate 16 05/22/24 02:04 Blood Pressure 118/74 05/22/24 02:04 Pulse Oximetry 98 05/22/24 01:59 DERMATOLOGY SALES REPRESENTATIVE Oxygen Delivery Method Room Air 05/22/24 01:59 DERMATOLOGY SALES REPRESENTATIVE Medications Administered Medications: Discontinued Medications Generic Name Dose Route Start Last Admin Trade Name Freq PRN Reason Stop Dose Admin Docusate Sodium/Benzocaine 5 ml 05/22/24 00:53 05/22/24 01:04 CDT Docusate Sodium/Benzocaine 5 Ml Enema CO 05/22/24 00:54 5 ml ONCE ONE Administration Sodium Chloride 500 mls @ 500 mls/hr 05/21/24 22:09 05/21/24 23:13 0.9 % Sodium Chloride 500 Ml IV 05/21/24 23:08 Infused .Q1H ONE Infusion Sodium Chloride 500 mls @ 1,000 mls/hr 05/21/24 23:07 05/22/24 01:29 CDT 0.9 % Sodium Chloride 500 Ml IV 05/21/24 23:36 Infused .Q30M ONE Infusion Sodium Chloride 500 mls @ 1,000 mls/hr 05/22/24 00:04 05/22/24 01:29 CDT 0.9 % Sodium Chloride 500 Ml IV 05/22/24 00:33 Infused .Q30M ONE Infusion Ondansetron HCl 4 mg 05/21/24 22:09 05/21/24 22:20 Ondansetron 2 Mg/Ml Inj IVP 05/21/24 22:10 4 mg ONCE ONE Administration Medical Decision Making MDM Narrative Medical decision making narrative: I would anticipate some dehydration here. Try to help her with her nausea. Initial abdominal exam is generally mildly tender and perhaps in this way is reassuring. Would look for red flags in the labs to prompt further evaluation. Collect urine for analysis as well. Normal saline hydration. Zofran. White count is elevated in isolation at about 15 and half. Did attempt to have bowel movements in the ER. Nursing noted some obstructing stool which was partially disimpacted. Small enema place appear Subsequently had larger bowel movement per Ms. Harris's report. Repeat abdominal exam is without tenderness. Abdomen still soft. Seems to be demonstrating some more energy. Reports to be ambulating at baseline with walker. Reviewing records shows baseline creatinine of 1.9 last checked about 2 months ago. Today was 2.1. Suspect this is somewhat prerenal. See patient discharge plan for further discussion Medical Records Medical records reviewed: Yes I reviewed the patient's medical records Lab Data Lab results reviewed: Yes I reviewed the patient's lab results Labs: Lab Results 05/21/24 05/21/24 05/22/24 Range/Units 22:09 22:27 01:25 DERMATOLOGY SALES REPRESENTATIVE WBC 15.60 H (4.50-11.00) K/uL RBC 5.21 H (4.00-5.20) m/uL Hgb 14.7 (12.0-16.0) gm/dL Hct 45.7 (33.0-51.0) % MCV 88 (80-100) fL MCH 28 (26-34) pg MCHC 32 (32-36) gm/dL RDW Coeff of Jeannine 12.6 (11.5-15.5) % Plt Count 418 (140-440) K/uL Neut % (Auto) 83.8 H (42.0-72.0) % Lymph % (Auto) 7.2 L (20-44) % [place] % (Auto) 7.3 (0.0-11.0) % Eos % (Auto) 1.3 (0.0-7.0) % Baso % (Auto) 0.1 (0.0-3.0) % Neut # (Auto) 13.10 H (1.7-7.0) K/uL Lymph # (Auto) 1.10 (0.90-2.90) K/uL [place] # (Auto) 1.10 H (0.00-0.90) K/UL Eos # (Auto) 0.20 (0.00-0.50) K/uL Baso # (Auto) 0.00 (0.00-0.30) K/uL Abs Immat Gran (auto) 0.00 (0.00-0.30) K/uL Imm/Tot Granulo (auto) 0.3 % Sodium 134 L (135-149) mmol/L Potassium 4.4 (3.6-5.1) mmol/L Chloride 98 (96-114) mmol/L Carbon Dioxide 25 (20-32) mmol/L Anion Gap 11 (7-15) mEq/L BUN 46 H (7-30) mg/dL Creatinine 2.1 H (0.5-1.5) mg/dL Estimated Creat Clear 21.12 Estimated GFR 24 ml/min Glucose 182 H (60-115) mg/dL Calcium 9.4 (8.4-10.6) mg/dL Urine Color Yellow (Yellow) Urine Appearance Clear (Clear) Urine pH 5.5 (5.0-8.5) Ur Specific [place] 1.025 (1.000-1.030) Urine Protein 3+ A (Negative) Urine Glucose (UA) Negative (Negative) Urine Ketones Negative (Negative) Urine Blood Negative (Negative) Urine Nitrite Negative (Negative) Urine Bilirubin Negative (Negative) Urine Urobilinogen 0.2 (0.2-1.0) Ur Leukocyte Esterase Trace A (Negative) Urine RBC 0-2 (0-2) Urine WBC 0-2 (0-5) Ur Squamous Epith Cells Few (None-Few) Urine Bacteria None (None) SARS-CoV-2 (PCR) Negative SARS-CoV-2 (Negative) Influenza Type A (PCR) Negative PCR FLU A (Negative) Influenza Type B (PCR) Negative PCR FLU B (Negative) Discharge Plan Discharge Clinical Impression: Renal insufficiency, Dehydration, Vomiting, Constipation Additional Instructions: Focus on hydration. I would take 1-3 doses daily of your MiraLax equivalent (polyethylene glycol) dissolve each dose in 8 oz of liquid. Adjust to stool consistency. Consider taking at least little MiraLax daily over the next week or 2. For particularly hard stools, consider placing an enema in repeating an hour if no good result. Be sure to get about with your walker. Prescribing also Zofran from [facility] for nausea. This can dissolve in your mouth. Prescriptions: No Action fluoxetine 40 mg capsule 40 mg PO QAM donepezil 10 mg tablet 10 mg PO DAILY carbidopa-levodopa 25-100 mg tablet 1 tab PO BID Rx Instructions: RECENTLY CHANGED TO BID lidocaine 5 % Adhesive Patch,Medicated 1 patch transdermal Q24H Qty: 30 0RF carvedilol 3.125 mg tablet 6.25 mg PO BID Qty: 120 0RF atorvastatin 40 mg tablet 40 mg PO HS clopidogrel 75 mg tablet 75 mg PO QAM Patient Comments: TAKE 1 TABLET BY MOUTH IN THE MORNING trazodone 100 mg tablet 100 mg PO HS Patient Comments: TAKE 1 TABLET BY MOUTH AT BEDTIME nitroglycerin 0.4 mg tablet, sublingual 0.4 mg sublingual Q5M bupropion HCl 150 mg tablet extended release 24 hr 150 mg PO DAILY Patient Comments: TAKE 1 TABLET BY MOUTH IN THE MORNING acetaminophen 325 mg Tablet 650 mg PO Q6H PRNQty: 30 0RF Follow Up/Referrals: Urmila Ivory MD [Primary Care Provider] - Stand Alone Forms: [email or web address] Info Instructions
[2024-05-21] MEDS: ONDANSETRON 2 MG/ML inj 4 MG IVP (22:20)
[2024-05-21] MEDS: 0.9 % SODIUM CHLORIDE 500 ML 500 ML IV (22:21)
[2024-05-21 22:34] LABS: Basophils Percent Auto 0.1 % (0.0-3.0); Eosinophils Percent Auto 1.3 % (0.0-7.0); Hematocrit 45.7 % (33.0-51.0); Hemoglobin* 14.7 gm/dL (12.0-16.0); Immature Granulocytes Pct Auto 0.3 %; Lymphocytes Percent Auto 7.2 % (20-44); Mean Corpuscular HGB Conc 32 gm/dL (32-36); Mean Corpuscular Hemoglobin 28 pg (26-34); Mean Corpuscular Volume 88 fL (80-100); Monocytes Percent Auto 7.3 % (0.0-11.0); Neutrophils Percent Auto 83.8 % (42.0-72.0); Platelet Count* 418 K/uL (140-440); RDW Coefficient of Variation % 12.6 % (11.5-15.5); Red Blood Count 5.21 m/uL (4.00-5.20)
[2024-05-21 22:38] LABS: Slide Review Reflex No
[2024-05-21 22:51] LABS: Chloride* 98 mmol/L (96-114); Potassium* 4.4 mmol/L (3.6-5.1); Sodium* 134 mmol/L (135-149)
--- OUTSIDE RECORDS SUMMARY | 2024-05-21 22:52 | XMS_ITS | Clinical Summary ---
Author Organization [facility] Address [address] [place] [address] Care Team Providers Care Signal System Testing Maintainer Name Role Phone Unavailable Primary Care Provider Unavailabl e Source Comments Patient records contain information from all sites at [facility]. For routine questions regarding patient records, call [phone] during business hours, M-F 8:00 AM - 5:00 PM Central Time. Record requests for emergency care only can be directed to [phone] at any time.[facility] Allergies No known active allergies Medications * This document contains information received from the source organization and may not represent a complete record from that organization. aspirin 81 mg chewable tablet Chew 81 mg daily. Active carvediloL (COREG) 3.125 mg tablet Take 3.125 mg by mouth 2 (two) times a day with meals. Active clopidogreL (PLAVIX) 75 mg tablet Take 75 mg by mouth daily. Active FLUoxetine (PROzac) 20 mg tablet Take 20 mg by mouth daily. Active Lactobacillus rhamnosus GG-inulin (CULTURELLE) 10 billion cell -200 mg per sprinkle capsule Take 1 capsule by mouth 2 (two) times a day with meals. Open capsule and mix until dissolved in a cool beverage or sprinkle onto applesauce. Mix until dissolved. Active levOCARNitine tartrate (L-CARNITINE) 250 mg capsule Take 250 mg by mouth every morning before breakfast. Active multivitamin chewable tablet Chew 1 tablet daily. Active nitroglycerin (NITROSTAT) 0.[address] 0.4 mg under the tongue every 5 (five) minutes as needed for chest pain. Active traZODone (DESYREL) 100 mg tablet Take 100 mg by mouth at bedtime. Active coenzyme Q10 (CO Q-10) 10 mg capsule Take 10 mg by mouth daily. Active atorvastatin (LIPITOR) 40 mg tablet Take 40 mg by mouth daily. Active buPROPion XL (WELLBUTRIN XL) 150 mg 24 hr tablet Take 1 tablet (150 mg total) by mouth daily. 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 10/01/2022 Overview (10/01/2022): R Nephrectomy for nephroma in 1985 Contusion (Hematoma) Thigh Initial Left 10/02/19 23 Nodules Pulmonary Multiple 10/01/2022 Anemia Posthemorrhagic Acute (Blood Loss Anemia) 10/01/2022 Fracture Rib Single Closed Initial Left 10/02/19 23 Nodule Thyroid 10/01/2022 Abnormal Gait Non Orthopedic 10/01/2022 Leukocytosis 10/01/2022 Chronic Systolic (Congestive) Heart Failure 07/20 Chronic Kidney Disease Stage 4 Glomerular Filtration Rate -02/03/2022 Thrombocythemia Essential Hemorrhagic 02/03/2022 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 Received [facility] to [facility] -08/21/08: STEMI, Angio: 95% mid dominant right coronary artery stenosis after a patent proximal right coronary artery stent. Moderate disease in small diagonal 1 and 2 branches. REID to mRCA. Echo prelim done at [facility] 08/21/08 showing normal LV function Status post PTCA with 3.5 x 18 mm cypher sirolimus stent 11/2021 NSTEMI/stress cardiomyopathy Major Depressive Disorder, Recurrent, Unspecifie d 02/09/2007 Overview (10/01/2022): Endogenous depression, unspecified Immunizations Name Administration Dates Next Due HZV (ZOSTAVAX) 12/25/2009 Influenza TIV (IM) 04/22/2019,08/12/2018 Influenza, Quadrivalent, Adjuvanted, Preservativ e Free 05/27/2021,05/23/2020 PCV13 07/09/2015 PPSV23 06/29/2012,01/02/2004 Td, (Adult) Unspecified 02/17/1997 Tdap 03/26/2020,01/07/2010 Tetanus Toxoid, Adsorbed (discontinued) 01/08/20 10 Social History Tobacco Use Types Packs/Day Years Used Date Smoking Tobacco: Never Tobacco Cessation:Counseling Given: Not Answered Alcohol Use Standard Drinks/Week Comments Not Currently 0 (1 standard drink = 0.6 oz pur e alcohol) Nutrition Answer Date Recorded Nutrition: EVOO Fat Source Unknown 10/01 Nutrition: Servings of Fruits/Vegetables per Day Not on file 10/01/2022 Dental Answer Date Recorded Dental: Regular Dentist Unknown 10/02/19 23 Comments Unknown Sex and Gender Information Value Date Recorded Sex Assigned at Not on file Legal Sex Female 3:08 AM [employer] Gender Identity Not on file Sexual Orientation Not on file Last Filed Vital Signs Vital Sign Reading Time Taken Comments Blood Pressure 125/70 10/07/2022 2:17 PM CDT Pulse 97 10/07/2022 2:17 PM CDT Temperature 36.4 ??C (97.5 ??F) 10/07/2022 2:17 PM CD T Respiratory Rate 18 10/07/2022 2:17 PM CDT Oxygen Saturation 98% 10/07/2022 2:17 PM CDT Inhaled Oxygen Concentration - - Weight 63 kg (138 lb 14.2 oz) 10/01/2022 4:00 AM CDT Height 167.6 cm (5' 6) 10/01/2022 4:00 AM CDT Body Mass Index 22.42 10/01/2022 4:00 AM CDT Plan of Treatment Health Maintenance Due Date Last Done Comments Diabetic Office Visit with Foot Exam 1945 Dilated Eye Exam 1945 Hepatitis C Screening 1945 Office Visit for Blood Pressure Check / Re-check 1945 Urine Albumin 1945 Zoster Vaccines (1 of 2) 02/19/2010 12/25/2009 RSV vaccine - (32-36 weeks) or 60+ years (1 - 1-dose 75+ series) 2020 Hemoglobin A1C 02/01/2023 08/04/2022, 03/21, 11/14/2021, Additional history exists Depression Screening (Annual PHQ-2) 07/20/2023 Fall Risk Screen (Annual) 07/20/2023 Creatinine Level (Kidney Function Test) 10/21/2023 10/20/2022, 10/07/2022, 10/07/2022, Additional history exists COVID-19 Vaccine ( season) 2024 09/28/2020, 08/31/2020 Influenza Vaccine (#1) 2024 , 05/23/2020, 04/22/2019, Additional history exists DTaP,Tdap,and Td Vaccines (3 - Td or Tdap) 03/26/2030 03/26/2020, 01/07/2010, 02/17/1997 Pneumococcal vaccine (65+ years) Completed 07/09/2015, 06/29/2012, 01/02/2004 IPV Vaccines Aged Out No longer eligi ble based on patient's age to complete this topic Procedures Procedure Name Priority Date/Time Associated Diagnosis Comments BASIC METABOLIC PANEL, S/P Timed 10/07/2022 6:22 AM CDT from Last 3 Months or Most Recently Relevant to Health Maintenance Results * (ABNORMAL) Basic Metabolic Panel (10/07/2022 6:22 AM CDT) Potassium, S 5.3(H) 3.6 - 5.2 mmol/L 10/07/2022 7:52 AM CDT DTL Sodium, S 142 135 - 145 mmol/L 10/07/2022 7:52 AM CDT DTL Chloride, S 106 98 - 107 mmol/L 10/07/2022 7:52 AM CDT DTL Bicarbonate, S 27 22 - 29 mmol/L 10/07/2022 7:52 AM CDT DTL Anion Gap 9 7 - 15 10/07/2022 7:52 AM CDT DTL BUN (Blood Urea Nitrogen), S 40(H) 6 - 21 mg/dL 10/07/2022 7:52 AM CDT DTL Creatinine 2.20(H) 0.59 - 1.04 mg/dL 10/07/2022 7:52 AM CDT DTL Estimated GFR (eGFR) 23(L) >=60 mL/min/BSA 10/07/2022 7:52 AM CDT DTL Comment: Estimated GFR calculated using the 2020 CKD_EPI creatinine equation. Calcium, Total, S 9.1 8.8 - 10.2 mg/dL 10/07/2022 7:52 AM CDT DTL Glucose, S 128 70 - 140 mg/dL 10/07/2022 7:52 AM CDT DTL Blood (Blood, Venous) 10/07/2022 6:22 AM CDT 10/07/2022 7:33 AM CDT Johny Wilks M.D. LAB BLOOD ADD-ON Final Result [facility] [address] [place] [address], [place] DTL [facility] [place] [facility] [place] [address] [place] [address] from Last 3 Months or Most Recently Relevant to Health Maintenance Insurance MEDICARE Advance Directives For more information, please contact: [phone] * Full Code (Latest Code Status on File) Date Activated Date Inactivated Comments 10/01/2022 3:47 AM 10/07/2022 4:52 PM Question Answer Comments Full Code: Not Discussed Due to: Patient not available
--- OUTSIDE RECORDS SUMMARY | 2024-05-21 22:52 | XMS_ITS | Clinical Summary ---
Author Organization [facility] Address [place], [place] [address] Care Team Providers Care Customer Care Agent Name Role Phone Urmila Ivory MD Primary Care Provider Allergies Active Allergy Reactions Criticality Noted Date Comments Zolpidem Tartrate Behavioral Disturbances 06/03 depression Bumetanide Nausea And Vomiting 10/17/2006 Codeine Nausea And Vomiting 10/17/2006 Duloxetine Other - Describe In Comment Field 04/19/2013 Has difficulty urinating Lorazepam Urinary Retention 03/22/2013 Sulindac Other - Describe In Comment Field 07/07/2013 Nephrotic syndrome Pentazocine 10/17/2006 Medications Medication Sig Dispensed Refills Start Date End Date Status MULTIVITAMIN TAB take 1 tablet by oral route once daily with food 0 09/08/2008 Active lactobacillus combination no.8 3 billion cell cap Take 1 Capsule by mouth once daily. 0 04/19/2013 Active levOCARNitine tartrate 250 mg capIndications:Park insonian features Take 1 Capsule by mouth once daily. 90 Capsule 3 12/05/2022 Active FLUoxetine (PROZAC) 40 mg capsuleIndications: Severe episode of recurrent major depressive disorder, without psychotic features (HC) Take 1 Capsule (40 mg) by mouth every morning. 100 Capsule 3 03/26/2023 Active donepeziL (ARICEPT) 10 mg tabletIndications:M matt loss Take 1 Tablet (10 mg) by mouth at bedtime. 90 Tablet 3 09/09/2023 Active traZODone (DESYREL) 100 mg tabletIndications:S evere episode of recurrent major depressive disorder, without psychotic features (HC) TAKE 1 TABLET BY MOUTH EVERY NIGHT AT BEDTIME. 90 Tablet 02/27/2024 Active carbidopa-levodopa, 25-100 mg, (SINEMET 25-100) 25-100 mg tabletIndications:P arkinsonian features TAKE 1 TABLET BY MOUTH THREE TIMES DAILY. 90 Tablet 04/20/2024 Active carvediloL (COREG) 3.125 mg tabletIndications:S /P drug eluting coronary stent placement TAKE 1 TABLET BY MOUTH TWICE DAILY WITH MEALS 60 Tablet 04/25/2024 Active clopidogreL (PLAVIX) 75 mg tabletIndications:S /P drug eluting coronary stent placement,Arteriosc lerotic cardiovascular disease (ASCVD) TAKE 1 TABLET BY MOUTH EVERY MORNING 30 Tablet 05/12/2024 Active buPROPion (WELLBUTRIN XL) 150 mg Extended-Release tabletIndications:S evere episode of recurrent major depressive disorder, without psychotic features (HC) TAKE 1 TABLET BY MOUTH DAILY 30 Tablet 05/12/2024 Active carvediloL (COREG) 3.125 mg tabletIndications:S /P drug eluting coronary stent placement TAKE 1 TABLET BY MOUTH TWICE DAILY WITH MEALS 180 Tablet 01/19/2024 4 Discontinued clopidogreL (PLAVIX) 75 mg tabletIndications:S /P drug eluting coronary stent placement,Arteriosc lerotic cardiovascular disease (ASCVD) TAKE 1 TABLET BY MOUTH EVERY AM 30 Tablet 03/28/2024 4 Discontinued buPROPion (WELLBUTRIN XL) 150 mg Extended-Release tabletIndications:S evere episode of recurrent major depressive disorder, without psychotic features (HC) TAKE 1 TABLET BY MOUTH DAILY 30 Tablet 04/07/2024 4 Discontinued Active Problems Problem Noted Date Diagnosed Date Right wrist fracture 12/05/2022 12/05/2022 Thyroid nodule 10/01/2022 12/05/2022 Chronic systolic congestive heart failure 2022 Essential (hemorrhagic) thrombocythemia 02/04/20 22 Stage 4 chronic kidney disease 02/03/2022 S/P drug eluting coronary stent placement 2021 Presence of coronary angioplasty implant and gra ft 12/13/2021 12/05/2022 Syncope 12/10/2021 Lung nodules 11/27/2021 Overview (12/05/2021): Noted on CT from [place] 11/23/21 - follow up in 3 month advised NSTEMI (non-ST elevated myocardial infarction) 0 11/26/2021 Sepsis due to Escherichia coli 11/26/2021 DDD (degenerative disc disease), lumbar 03/28/20 20 Overview (03/28/2020): [facility] 03/2020 Hyperkalemia 06/22/2019 Persistent proteinuria 11/25/2018 Hypomanic episode 08/25/2018 Stage 3b chronic kidney disease 04/15/2016 Thrombocytosis 06/29/2012 Overview (05/23/2020): Hematology consult 2010, Normal peripheral smear, SPEP normal Fatty infiltration of liver 06/29/2012 Overview (06/29/2012): Ultrasound 2007 Diabetes type 2, controlled 01/22/2012 Arteriosclerotic cardiovascular disease (ASCVD) 08/22/2008 Overview (08/04/2022): ASA indefinitely, Plavix for minimum 1 year but preferably indefinitely s/p PCI in 2002, 2008, and 11/2021 -06/03/03 Acute HI, Angio: Single vessel CAD. Received [facility] to [facility] -08/21/08: STEMI, Angio: 95% mid dominant right coronary artery stenosis after a patent proximal right coronary artery stent. Moderate disease in small diagonal 1 and 2 branches. REID to mRCA. 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 -Tx for + C.diff as well as h. Pylori - 08/22/08 07/26/08 ALT 96H 55H AST 65H 48H Acute renal insufficiency 07/15/2008 Obesity, unspecified 12/10/2007 009 Old myocardial infarction Encounters Date Type Department Care Team Description 05/19/2024 Refill [facility] [address] [place] [address] Urmila Ivory MD Refill Request (Carbidopa-levodop a (25-100 Mg)) 05/09/2024 Lab Requisition [facility] [phone] Magali Berger NP 05/09/2024 Telephone [facility] [address] [place] [address] Urmila Ivory MD UPDATE 05/08/2024 Refill [facility] [address] [place] [address] Urmila Ivory MD Refill Request (Clopidogrel, Bupropion) 04/25/2024 Refill [facility] [address] [place] [address] Urmila Ivory MD Refill Request (Carvedilol) 04/24/2024 Orders Only [facility] Scanner 1 scan: (1-Ord) SHOCK, CT CHEST ABDOMEN PELV W CON, 04/24/2024 04/24/2024 Orders Only [facility] Scanner 1 scan: (1-Ord) JANAE, HEAD/BRAIN WO CON, 04/24/2024 04/24/2024 Orders Only [facility] Scanner 1 scan: (1-Ord) JANAE, CERVICAL SPINE WO CONTRAST, 04/24/2024 04/21/2024 Refill [facility] [address] [place] [address] Urmila Ivory MD Refill Request (Carvedilol) 04/20/2024 Refill [facility] [address] [place] [address] Urmila Ivory MD Refill Request (Carbidopa-levodop a (25-100 Mg)) 04/18/2024 Telephone [facility] [address] [place] [address] Urmila Ivory MD Appointment 04/15/2024 Telephone [facility] [address] [place] [address] Urmila Ivory MD Questions (REGARDING CARE ) 04/14/2024 Refill [facility] [address] [place] [address] Urmila Ivory MD Refill Request (Carbidopa-levodop a (25-100 Mg)) 04/01/2024 Telephone [facility] [address] [place] [address] Urmila Ivory MD Form 03/31/2024 Refill [facility] [address] [place] [address] Urmila Ivory MD Refill Request (Bupropion) 03/28/2024 Refill [facility] [address] [place] [address] Urmila Ivory MD Refill Request (Clopidogrel) 03/24/2024 Refill [facility] [address] [place] [address] Urmila Ivory MD Refill Request (Clopidogrel) 02/25/2024 1:30 PM CDT Office Visit [facility] [address] [place] [address] Brandon Meier MD Follow Up 02/25/2024 12:15 PM CDT - 02/25/2024 11:59 PM CDT Hospital Encounter [facility] [address] [place] [address] Brandon Meier MD Lung nodule 02/25/2024 Travel 02/25/2024 Refill [facility] [address] [place] [address] Urmila Ivory MD Refill Request (Trazodone) from Last 3 Months Immunizations Name Administration Dates Next Due AMB INFLUENZA IIV3 (AGE 65+ YRS) PF (Flu Clinic Only) 04/22/2019 COVID-19 vaccine (Moderna 100mcg/0.5mL) PF, MDV 09/28/2020,08/31/2020 Influenza, Inactivated AIIV4 (Age 65+ Years) Preserv Free 05/27/2021,05/23/2020 Influenza, Inactivated IIV3 (Age 65+ Years) Preserv Free 08/12/2018 Pneumococcal Poly,23-Valent (Pneumovax) 06/29/20 12,01/02/2004 Pneumococcal conj 13-Valent (Prevnar 13) 015 Td (Age >=7 Years) 02/17/1997 Tdap 03/26/2020,01/07/2010 Zoster (Zostavax-ZVL, live) 12/25/2009 Family History Medical History Relation Name Comments Cancer-breast Daughter 2 diagnosed in h er late ' Other Father Stroke Maternal Grandfather Stroke Maternal Grandmother Diabetes Mother Heart Disease Mother Genetic Other 1. History of i schemic cardiac disease. Other Paternal Grandfather Cancer-colon Paternal Grandmother Heart Disease Sister 1 Other Sister 2 Relation Name Status Comments Daughter 1 breast cancer Daughter 2 Father Maternal Grandfather Maternal Grandmother Mother Alive Other Paternal Grandfather Paternal Grandmother Sister 1 Alive Sister 2 Social History Tobacco Use Types Packs/Day Years Used Date Smoking Tobacco: Never Passive Smoke Exposure: Never Smokeless Tobacco: Never Tobacco Cessation:Counseling Given: Not Answered Alcohol Use Standard Drinks/Week Comments Yes 0 (1 standard drink = 0.6 oz pur e alcohol) glass of wine occassionally PHQ-2 Answer Date Recorded PHQ-2 TOTAL SCORE 5 01/22/2023 Social Connections Answer Date Recorded Frequency of Communication with Friends and Fami ly Not on file 12/03/2023 Financial Resource Strain Answer Date R ecorded Difficulty of Paying Living Expenses 3 12/02/2022 Difficulty of Paying Living Expenses Not on file 12/02/2022 Food Insecurity Answer Date Recorded Worried About Running Out of Food in the Last Ye ar 1 12/02/2022 Transportation Needs Answer Date Record ed Lack of Transportation (Medical) 1 12/02/2022 Housing Stability Answer Date Recorded Unable to Pay for Housing in the Last Year 1 12/02/2022 Sex and Gender Information Value Date Recorded Sex Assigned at Not on file Gender Identity Not on file Sexual Orientation Not on file Obstetrics History Last Filed Vital Signs Vital Sign Reading Time Taken Comments Blood Pressure 174/84 02/25/2024 1:37 PM CDT Pulse 55 02/25/2024 1:32 PM CDT Temperature 36.2 ??C (97.2 ??F) 02/25/2024 1:32 PM CD T Respiratory Rate 16 02/25/2024 1:32 PM CDT Oxygen Saturation 96% 02/25/2024 1:32 PM CDT Inhaled Oxygen Concentration - - Weight 67.8 kg (149 lb 6.4 oz) 02/25/2024 1:32 P M CDT Height 170.2 cm (5' 7) 02/25/2024 1:32 PM CDT Body Mass Index 23.4 02/25/2024 1:32 PM CDT Plan of Treatment Upcoming Encounters Date Type Department Care Team (Late st Contact Info) Description 05/23/2024 2:20 PM STUDENT LOAN COUNSELOR Office Visit [facility] [address] [place] [address] Urmila Ivory MD [address] [place] [address] Health Maintenance Due Date Last Done Comments Zoster (shingles) series for age 50+ (2 of 3) 02/19/2010 12/25/2009 RSV vaccine for adults or (1 - 1-dose 75+ series) 2020 Medicare Wellness for age 65+ 05/28/2022, 05/23/2020, 11/11/2018, Additional history exists Depression screening for age 12+ 01/28/2024 01/27/2023, 01/22/2023, 08/04/2022, Additional history exists COVID-19 vaccine series ( season) 2024 09/28/2020, 08/31/2020 Influenza for age 65+ 03/20/2024 05/27/2021 , 05/23/2020, 04/22/2019, Additional history exists BMI (ht and wt on same day) for age 18+ 02/24/2025 02/25/2024, 03/31/2023, 12/05/2022, Additional history exists Tetanus booster 03/26/2030 03/26/2020, 12/19, 02/17/1997 Hepatitis C screening for ag e 18-79 Completed 07/05/2008 Pneumococcal series for age 65+ Completed 07/09/2015, 06/29/2012, 01/02/2004 Tdap Completed 03/26/2020, 01/07/2010 DEXA/DXA scan for age 65+ Completed 2020, 01/18/2015, 09/19/2010 Procedures Procedure Name Priority Date/Time Associated Diagnosis Comments CBC WITH AUTO DIFFERENTIAL Routine 05/10/2024 9:00 AM CDT Nausea BASIC METABOLIC PANEL Routine 05/10/2024 9:00 AM CDT Nausea CBC WITH AUTO DIFFERENTIAL Routine 05/10/2024 9:00 AM CDT Nausea SCAN-CT INTERPRETATION 4 12:00 AM CDT SCAN-CT INTERPRETATION 4 12:00 AM CDT SCAN-CT INTERPRETATION 4 12:[address] CHEST WO Routine 02/25/2024 1:14 PM CDT Lung nodule XR DXA BONE DENSITY 2 SITES AXIAL AND 1 SITE PERIPHERAL Routine 06/05/2021 2:24 PM STUDENT LOAN COUNSELOR Menopausal state Unspecified menopausal and perimenopausal disorder ACUTE HEPATITIS PANEL Routine 07/05/2008 3:19 PM STUDENT LOAN COUNSELOR Nausea Alone from Last 3 Months or Most Recently Relevant to Health Maintenance Results * (ABNORMAL) CBC WITH AUTO DIFFERENTIAL (05/10/2024 9:00 AM T) [facility] WHITE BLOOD COUNT 9.5 4.5 - 11.0 thou/cu mm 05/10/2024 9:51 AM [facility] RED BLOOD COUNT 4.58 4.00 - 5.20 mil/cu mm 05/10/2024 9:51 AM [facility] HEMOGLOBIN 13.3 12.0 - 16.0 g/dL 05/10/2024 9:51 AM [facility] HEMATOCRIT 41.8 33.0 - 51.0 % 05/10/2024 9:51 AM [facility] MCV 91 80 - 100 fL 05/10/2024 9:51 AM [facility] MCH 29.0 26.0 - 34.0 pg 05/10/2024 9:51 AM [facility] MCHC 31.8(L) 32.0 - 36.0 g/dL 05/10/2024 9:51 AM [facility] RDW 13.5 11.5 - 15.5 % 05/10/2024 9:51 AM [facility] PLATELET COUNT 442(H) 140 - 440 thou/cu mm 05/10/2024 9:51 AM [facility] MPV 8.2 6.5 - 11.0 fL 05/10/2024 9:51 AM [facility] % NEUT 71.9 % 05/10/2024 9:51 AM [facility] % LYMPH 15.9 % 05/10/2024 9:51 AM [facility] % MONO 6.9 % 05/10/2024 9:51 AM T [facility] % EOS 5.1 % 05/10/2024 9:51 AM [facility] % BASO 0.2 % 05/10/2024 9:51 AM CDT [facility] ABSOLUTE NEUTROPHILS 6.8 1.7 - 7.0 thou/cu mm 05/10/2024 9:51 AM T [facility] ABSOLUTE LYMPHOCYTES 1.5 0.9 - 2.9 thou/cu mm 05/10/2024 9:51 AM T [facility] ABSOLUTE MONOCYTES 0.7 <0.9 thou/cu mm 05/10/2024 9:51 AM [facility] ABSOLUTE EOSINOPHILS 0.5(H) <0.5 thou/cu mm 05/10/2024 9:51 AM [facility] ABSOLUTE BASOPHILS 0.0 <0.3 thou/cu mm 05/10/2024 9:51 AM [facility] Blood BLOOD SPECIMEN / Unknown Venipuncture / Unknown 05/10/2024 9:00 AM CDT 05/10/2024 9:42 AM CDT Magali Berger NP HEMATOLOGY [facility] [address] [place] [address] * (ABNORMAL) BASIC METABOLIC PANEL (05/10/2024 9:00 AM CDT) SODIUM 140 136 - 145 mmol/L 05/10/2024 10:13 AM T [facility] POTASSIUM 4.3 3.5 - 5.1 mmol/L 05/10/2024 10:13 AM [facility] CHLORIDE 102 98 - 107 mmol/L 05/10/2024 10:13 AM [facility] CO2,TOTAL 29 22 - 29 mmol/L 05/10/2024 10:13 AM [facility] ANION GAP 9 5 - 18 05/10/2024 10:13 AM T [facility] GLUCOSE 227(H) 70 - 99 mg/dL 05/10/2024 10:13 AM [facility] CALCIUM 9.3 8.8 - 10.2 mg/dL 05/10/2024 10:13 AM T [facility] BUN 31(H) 8 - 23 mg/dL 05/10/2024 10:13 AM [facility] CREATININE 1.90(H) 0.50 - 0.90 mg/dL 05/10/2024 10:13 AM [facility] BUN/CREAT RATIO 16 10 - 20 10:13 AM [facility] eGFR 27(L) >90 mL/min/1.7 3m2 05/10/2024 10:13 AM [facility] Comment:As of 2021, eG FR is calculated by the CKD-EPI creatinine equation without race adjustment. ??eGFR can be influenced by muscle mass, exercise, and diet. ??The reported eGFR is an estimation only and is only applicable if the renal function is stable. Blood BLOOD SPECIMEN / Unknown Venipuncture / Unknown 05/10/2024 9:00 AM CDT 05/10/2024 9:42 AM CDT Magali Berger NP CHEMISTRY [facility] [address] [place] [address] * SCAN-CT INTERPRETATION (04/24/2024 12:00 AM CDT) Only the most recent of3 resultswithin the time period is included. Anatomical Region Laterality Modality Other Scanner OTHER * CT CHEST WO (02/25/2024 1:14 PM CDT) Anatomical Region Laterality Modality CHEST, THORAX, HEART Computed To mography Impressions 03/09/2024 8:44 PM CDT 1. Multiple solid pulmonary nodules, with a 7 mm right lower lobe nodule and a 13 mm left lower lobe nodule, appears stable since 11/19/2023. Follow-up CT in 12-18 months is recommended to assess stability or resolution, per Fleischner society guidelines. 2. Dense coronary arterial calcifications. Advise correlation with ASCVD evaluation. Please note that all CT scans at this facility use dose modulation, iterative reconstruction and/or weight-based dosing when appropriate to reduce radiation dose to as low as reasonably achievable. ?? Signed by: Barrett Hopkins MD @02/27/2024 5:39:49 PM Narrative 03/09/2024 8:44 PM CDT For Patients: As a result of the Century Cures Act, medical imaging exams and procedure reports are released immediately into your electronic medical record. ??You may view this report before your referring provider. ?? If you have questions, please contact your health care provider. INDICATION: Solitary pulmonary nodule. TECHNIQUE: Multiplanar CT examination of the chest was performed without the use of intravenous contrast. COMPARISON: CT abdomen and pelvis 11/19/2023. FINDINGS: Lower neck: The visualized thyroid is unremarkable. Cardiovascular: Heart size is normal. Thoracic aorta and pulmonary artery are normal in caliber. No significant atherosclerotic calcifications of the aortic arch. Dense coronary arterial calcifications. Mediastinum and lymph nodes: Unremarkable. No pathologic mediastinal or hilar lymphadenopathy by size criteria. Lungs: Stable left lower lobe pulmonary nodule measuring 13 x 9 mm. Stable right lower lobe nodules measuring between 3 and 7 mm (3: 86). Linear bandlike opacification of the lung bases bilaterally, likely subsegmental atelectasis and/or scarring. No focal consolidation. Airways: Trachea remains patent and midline. Mild diffuse peribronchial wall thickening. Pleura: No pleural effusions or pneumothorax Chest wall: Unremarkable. Prominent axillary lymph nodes that do not meet size criteria for lymphadenopathy. Bones: No acute osseous abnormalities. Mild degenerative changes of the thoracic spine. Upper abdomen: Unremarkable. The upper abdomen appears within normal limits. Brandon Meier MD CT * XR DXA BONE DENSITY 2 SITES AXIAL AND 1 SITE PERIPHERAL (06/05/2021 2:24 PM STUDENT LOAN COUNSELOR) Anatomical Region Laterality Modality LUMBAR SPINE Other Impressions 06/07/2021 2:35 PM STUDENT LOAN COUNSELOR Normal bone density. RECOMMENDATIONS: The National Osteoporosis Foundation recommends pharmacologic treatment for patients with T-scores of -2.5 or less, patients with prior history of fragility fractures, or patients with 10-year probability of greater than 3% at hips or greater than 20% of suffering major osteoporotic fractures. Recommend continued optimization of calcium and vitamin D intake through dietary means and/or supplementation and regular exercise. Repeat scan recommended in 5-7 years. Maisha Bowman PA-C Narrative 06/07/2021 2:35 PM STUDENT LOAN COUNSELOR For Patients: Results are automatically [facility] once available, in compliance with federal regulations. This means that you may see your results before your provider has had a chance to review them. Please allow 2-3 business days for your provider to comment on the results. XR DXA Bone Mineral Density (BMD) EXAM LOCATION: [address] [address] PATIENT NAME: Brinda Harris DATE OF : 1945 EXAM DATE: 06/05/2021 REQUESTING PROVIDER: Kristen Pittman MD GENDER AT : female HEIGHT: 5' 4.65 (05/27/2021) WEIGHT: ??151 lb 8 oz (05/27/2021) MENOPAUSAL STATUS: Postmenopausal RACE/ETHNICITY: White RISK FACTORS: Family History of Osteoporosis, Family History of Hip Fracture (parental), Height Loss (2 inches or more), Renal Failure and White Race CURRENT MEDICATION FOR BONE LOSS: NONE INDICATION: Post-Menopause COMPARISON DATE(S): 2014 DXA scans are compared to prior studies for a patient only when the two (or more) studies were performed on the same scanner. It is not possible to compare data generated on one scanner to data from another because there are not standards in DXA equipment. This applies even if the two scanners are made by the same mh teacher. PROCEDURE: Dual-energy x-ray absorptiometry performed with routine technique. Reporting is completed in the form of a T-score. The T-score represents the standard deviation from peak bone mass based on young healthy adult. A Z-score is used for diagnosis in premenopausal women, and for men under the age of 50. FINDINGS: RESULT LUMBAR SPINE L2 - L4 ??BMD: 1.507 g/cm2 T-Score: + 2.6 Z-Score: + 4.2 Change from prior in 2015: ??Decrease 1.2%. RESULTS FEMUR Left femoral neck BMD: 1.037 g/cm2 T-Score: - 0.0 Z-Score: + 1.9 Change from prior in 2015: ??Increase 6.0%. Right femoral neck BMD: 1.049 g/cm2 T-Score: + 0.1 Z-Score: + 1.9 Change from prior in 2015: ??Decrease 4.1%. Left hip BMD: 1.097 g/cm2 T-Score: + 0.7 Z-Score: + 2.4 Change from prior in 2015: ??Increase 0.1%. Right hip BMD: 1.056 g/cm2 T-Score: + 0.4 Z-Score: + 2.1 Change from prior in 2015: ??Decrease 1.9%. RESULT FOREARM Left Forearm distal radius BMD: 0.862 g/cm2 T-Score: - 0.2 Z-Score: + 2.2 Change from prior: ??None WHO criteria: Normal: T-score at or above -1 SD Osteopenia: T-score between -1.1 and -2.4 SD Osteoporosis: T-score at or below -2.5 SD Kristen Pittman MD DEXA * ACUTE HEPATITIS PANEL (07/05/2008 3:19 PM STUDENT LOAN COUNSELOR) HBSAG Non-reacti ve [facility] IGM ANTI HBC Non-reacti ve [facility] IGM ANTI HAV Non-reacti ve [facility] ANTI HCV Non-reacti ve [facility] Blood specimen (specimen) BLOOD SPECIMEN / Unknown 07/05/2008 3:19 PM STUDENT LOAN COUNSELOR 07/05/2008 2:00 PM STUDENT LOAN COUNSELOR Carmel Beebe DO SEND OUTS [facility] INTERNAL ZIP [id number] [address] from Last 3 Months or Most Recently Relevant to Health Maintenance Advance Directives * Full Code (Latest Code Status on File) Date Activated Date Inactivated Comments 12/10/2021 5:10 PM 12/14/2021 4:27 PM Question Answer Comments Code Status Discussion: Reviewed Preferences * Full Code Date Activated Date Inactivated Comments 12/10/2021 4:15 PM 12/10/2021 5:10 PM Question Answer Comments Code Status Discussion: Reviewed Preferences * Full Code Date Activated Date Inactivated Comments 11/27/2021 1:20 AM 11/30/2021 5:37 PM Question Answer Comments Code Status Discussion: Reviewed Preferences * Full Code Date Activated Date Inactivated Comments 08/22/2008 12:25 AM 08/23/2008 3:24 PM * Full Code Date Activated Date Inactivated Comments 07/15/2008 1:42 AM 07/16/2008 5:25 PM Care Teams Customer Care Agent Relationship Specialty Start Date End Date Urmila Ivory MD [address] [place] [address] PCP - General Family Practice 12/01/22
--- OUTSIDE RECORDS SUMMARY | 2024-05-21 22:52 | XMS_ITS | Referral Summary ---
Author Organization [facility] Address [address] [place] [address] Care Team Providers Care Bill Hiker Name Role Phone Unavailable Primary Care Provider Unavailabl e Source Comments Patient records contain information from all sites at [facility]. For routine questions regarding patient records, call [phone] during business hours, M-F 8:00 AM - 5:00 PM Central Time. Record requests for emergency care only can be directed to [phone] at any time.[facility] Allergies No known active allergies Medications * [...] 022 Degeneration Disc Lumbar 03/28/2020 Overview (10/01/2022): [facility] 03/2020 Other Manic Episodes 08/25/2018 Fatty Liver 06/29/2012 Overview (10/01/2022): Ultrasound 2008 Diabetes Mellitus Type 2 01/22/2012 Hypertension Essential Primary 08/09/2010 Overview (12/09/2016): Benign Essential Hypertension Atherosclerotic Heart Diseas e Of [place] Coronary Artery Without Angina Pectoris 08/22/2008 Overview (10/01/2022): ASA indefinitely, Plavix for minimum 1 year but preferably indefinitely s/p PCI in 2002, 2008, and 11/2021 -06/03/03 Acute [place], Angio: Single vessel CAD. Received REID to [facility] -08/21/08: STEMI, Angio: 95% mid dominant right coronary artery stenosis after a patent proximal right coronary artery stent. Moderate disease in small diagonal 1 and 2 branches. REID to mRCA. Echo prelim done at [place] 08/21/08 showing normal LV function Status post [...] on file Legal Sex Female 3:08 AM PIANO TUNER Gender Identity Not on file Sexual Orientation [...] 10/01/2022 4:00 AM CDT Plan of Treatment Not on file Procedures Procedure Name Priority Date/Time Associated Diagnosis [...] Wilks M.D. LAB BLOOD ADD-ON Final Result [facility] [address] [place] [address], [place] D[place] [facility] [address] [place] [address] from Last 3 Months or Most Recently Relevant to Health Maintenance Insurance MEDICARE Advance Directives For more information, please contact: [phone] * Full Code (Latest Code Status on File) Date Activated Date Inactivated Comments 10/01/2022 3:47 AM 10/07/2022 4:52 PM Question Answer Comments Full Code: Not Discussed Due to: Patient not available
--- OUTSIDE RECORDS SUMMARY | 2024-05-21 22:52 | XMS_ITS ---
Author Organization [facility] Address [address] [place] [address] Care Team Providers Care Ict Support Engineer Name Role Phone Unavailable Unavailable Unavailable Surgery Details Not on file Complications Check Surgery Details section. Procedure Estimated Blood Loss Check Surgery Details section. Procedure Findings Check Surgery Details section. Procedure Specimens Taken Check Surgery Details section.
[2024-05-21 22:54] LABS: Anion Gap 11 mEq/L (7-15); Blood Urea Nitrogen* 46 mg/dL (7-30); Carbon Dioxide* 25 mmol/L (20-32); Creatinine* 2.1 mg/dL (0.5-1.5); Est. Creatinine Clearance* 21.12; Estimated Glomerular Filt Rate 24 ml/min; Glucose* 182 mg/dL (60-115)
[2024-05-21 22:55] LABS: Calcium* 9.4 mg/dL (8.4-10.6)
[2024-05-21 23:00] VITALS: O2SAT 98
[2024-05-21] MEDS: 0.9 % SODIUM CHLORIDE 500 ML 500 ML 1000 ML IV (23:13)
[2024-05-21 23:15] LABS: PCR FLU A Negative PCR FLU A (Negative); PCR FLU B Negative PCR FLU B (Negative); SARS PCR* Negative SARS-CoV-2 (Negative)
[2024-05-22 01:00] VITALS: BP 120/76; PULSE 67; RESP 16; O2SAT 98
[2024-05-22] MEDS: 0.9 % SODIUM CHLORIDE 500 ML 500 ML 1000 ML IV (01:04)
[2024-05-22] MEDS: DOCUSATE SODIUM/BENZOCAINE 5 ML ENEMA PR (01:04)
[2024-05-22 01:34] LABS: Appearance Urine Clear (Clear); Bilirubin Urine Negative (Negative); Blood Urine Negative (Negative); Color Urine Yellow (Yellow); Glucose Urine Negative (Negative); Ketones Urine Negative (Negative); Leukocyte Esterase Urine Trace (Negative); Nitrite Urine Negative (Negative); Protein Urine 3+ (Negative); Specific Gravity Urine 1.025 (1.000-1.030); Urobilinogen Urine 0.2 (0.2-1.0); pH Urine 5.5 (5.0-8.5)
[2024-05-22 01:40] LABS: RBC Urine 0-2 (0-2); Squamous Epithelial Cell Urine Few (None-Few); WBC Urine 0-2 (0-5)
[2024-05-22 01:59] VITALS: BP 118/74; PULSE 74; RESP 16; TEMP 36.9; O2SAT 98
[2024-05-22 02:04] VITALS: BP 118/74; PULSE 74; RESP 16; TEMP 36.9
== END 2024-05-22 02:04 | disposition home or self-care (01) ==
PROVIDERS: Emergency Provider Family Medicine; PCP Family Medicine
DX: N28.9 Disorder of kidney and ureter, unspecified (principal); K59.00 Constipation, unspecified; E86.0 Dehydration
CPT/HCPCS: 36415; 80048; 81001; 85025; 87086; 87631; 94761; 96374; 99284; A9270; J2405; J7030

== ENCOUNTER → 2024-09-20 07:25 | Outpatient (RCR) | payer SELFPAY | END | disposition home or self-care (01) | LOC: MOW 09-18 08:48 | PROVIDERS: PCP Internal Medicine; Visit Provider Family Medicine | DX: Z76.0 Encounter for issue of repeat prescription (principal) | CPT/HCPCS: S5170 ==